=== PATIENT | male | born 1950 | race Caucasian/White ===

== ENCOUNTER 2017-12-14 05:10 | Emergency (ER) | payer MEDICARE, OTHER, SELFPAY ==
--- NOTE | 2017-12-14 05:12 | DI.RAD.S_ITS ---
PROCEDURE: XR CHEST 1V INDICATIONS: 67 year-old male with chest pain. TECHNIQUE: One view of the chest was acquired. COMPARISON: [facility], , CHEST 2 VIEW, 01/13/2015, 10:13. [facility], , CHEST 1 VIEW, 12/10/2011, 16:27. FINDINGS: Surgical changes and devices: None. Lungs and pleura: No pleural effusions or pneumothorax. Lungs are clear. Mediastinum: Mediastinal contours appear normal. Heart size is normal. Bones and chest wall: No suspicious bony lesions. Overlying soft tissues appear unremarkable. IMPRESSION: No acute cardiopulmonary disease. Dictated by: Ryder Gonzalez M.D. on 12/14/2017 at 7:48 Approved by: Ryder Gonzalez M.D. on 12/14/2017 at 7:48
--- NOTE | 2017-12-14 05:13 | ED.CHESTPAIN ---
HPI - Chest Pain General Chief Complaint: Chest Pain Stated Complaint: Chest pain Time Seen by Provider: 12/14/17 05:12 Source: patient Mode of arrival: ambulatory Limitations: no limitations History of Present Illness HPI narrative: 67-year-old male here for evaluation of chest discomfort. Patient states that 20 years ago he had a TX and had 2 stents placed in his right coronary artery. He states that since then he has never had pain like that day. He states that 7 years ago he had an episode of chest discomfort that was different from his heart attack pain but very similar to the pain that brought him in today only today symptoms are less severe than what they were 7 years ago. He states that that time 7 years ago he was admitted to the hospital overnight and was told that he did not have a heart attack. Has not had any symptoms since then. He states that yesterday morning he woke with the chest discomfort. He states that it lasted for several hours. He states that when he went on a brisk walk yesterday afternoon and did not have any symptoms. He states that this morning he woke at approximately 3 o'clock in the morning to go to the bathroom when he had the symptoms. He states that has been off and on since then. He states that he had breakfast later in the symptoms are now gone. He states that now that he has no symptoms. Related Data Home Medications Medication Instructions Recorded Confirmed Fish Oil 1,000 mg PO Q DAY #0 12/10/11 aspirin 81 mg PO QDAY #0 12/10/11 atorvastatin [Lipitor] 40 mg PO HS #0 12/10/11 docusate sodium 250 mg PO QDAY #0 12/10/11 hydrochlorothiazide 12.5 mg PO QDAY #0 12/10/11 lisinopril 20 mg PO BID #0 12/10/11 morphine [Nella] 1 tab #0 12/10/11 morphine [Nella] 2 tabs PO #0 12/10/11 omeprazole 20 mg PO QDAY #0 12/10/11 psyllium husk (aspartame) 1 pkt PO QDAY #0 12/10/11 [Metamucil Fiber Singles] zolpidem 10 mg PO HSP #0 12/10/11 Allergies Allergy/AdvReac Type Severity Reaction Status Date / Time lisinopril Allergy Severe angioedema Verified 12/14/17 05:18 Review of Systems Constitutional Denies chills, Denies fever(s), Denies lethargy and Denies weakness Cardiovascular Reports chest pain, Denies rapid heart rate, Denies edema, Denies irregular heart rhythm, Denies lightheadedness, Denies palpitations, Denies dyspnea, Denies dyspnea on exertion and Denies orthopnea Respiratory Denies cough, Denies dyspnea, Denies dyspnea on exertion and Denies wheezing Gastrointestinal Gastrointestinal: Denies abdominal pain, Denies change in bowel habits, Denies diarrhea, Denies nausea and Denies vomiting Genitourinary Denies hematuria, Denies flank pain, Denies urinary incontinence and Denies urinary urgency Integumentary/Breasts Denies pruritus, Denies erythema, Denies rash and Denies wounds Neurologic Denies weakness Endocrine Denies palpitations Hematologic/Lymphatic Denies easy bruising Allergic/Immunologic Denies wheezing [facility] 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 Smoking Status: Never smoker Exam Initial Vital Signs Initial Vital Signs: Vital Signs Blood Pressure 137/93 H 12/14/17 05:14 Const General: cooperative and well developed Nutritional Appearance: well nourished Orientation: alert, awake, oriented x3 and not confused Chest Chest: normal inspection of the chest Resp Effort & Inspection: normal respiratory effort, able to speak in complete sentences, no respiratory distress and no use of accessory muscles Auscultation: clear to auscultation bilaterally, no rales, no rhonchi and no wheezes Cardio Rate: regular rate Rhythm: regular rhythm Heart Sounds: no click, no gallops, no murmurs and no rubs Pulses: normal peripheral pulses GI Inspection: non-distended Palpation: soft, no hepatosplenomegaly, No guarding, No pulsatile mass and No tender Auscultation: normal bowel sounds Skin General: no rashes or lesions noted, No jaundice and No petechiae Neuro General: alert, oriented x3, gait normal and no focal motor deficits Speech: speech normal Extrem General: full ROM, no clubbing, cyanosis or edema, no pedal edema and no calf tenderness Course Orders Ordered: ED Orders 12/14/17 05:10 Basic Metabolic Panel Stat Complete Blood Count AUTO DIFF Stat Troponin I Stat 12/14/17 05:12 XR chest 1V Stat 06/01/18 05:13 EKG-12 Lead Stat 12/14/17 08:00 Troponin I Stat Vital Signs - 8 hr 12/14/17 05:14 12/14/17 06:01 Pulse Rate 68 Respiratory Rate 14 Blood Pressure 137/93 H Blood Pressure [Right Arm] 176/64 H Pulse Oximetry 100 MDM - Chest Pain Lab Data Attestation: I reviewed the patient's lab results. Result diagrams: 12/14/17 05:10 12/14/17 05:10 Lab Results 12/14/17 12/14/17 Range/Units 05:10 05:10 WBC 8.3 (4.5-11.0) X10^3/uL RBC 4.91 (4.5-5.9) X10^6/uL Hgb 14.7 (13.5-17.5) g/dL Hct 40.8 L (41-53) % MCV 83.1 (80-100) fL MCH 30.0 (26-34) PG MCHC 36.1 H (30-36) % RDW 12.6 (11.6-14.8) % Plt Count 172 (150-400) X10^3/uL Neut % (Auto) 64.0 (50-75) % Lymph % (Auto) 23.8 L (25-40) % [place] % (Auto) 8.3 (3-14) % Eos % (Auto) 3.1 (2-4) % Baso % (Auto) 0.8 (0-2) % Neut # (Auto) 5300 (6029-5355) /uL RBC Morphology Not Reportable Rouleaux 2+ H Sodium 140 (137-145) mmol/L Potassium 4.1 (3.4-5.1) mmol/L Chloride 100 (98-107) mmol/L Carbon Dioxide 29 (22-32) mmol/L BUN 20 (9-20) mg/dL Creatinine 0.80 (0.66-1.25) mg/dL Estimated GFR > 60.0 (>60) mL/min BUN/Creatinine Ratio 25.0 H (6-22) Glucose 220 H (80-110) mg/dL Calcium 9.4 (8.4-10.2) mg/dL Troponin I < 0.012 (0.01-0.034) ng/mL Imaging Data Chest x-ray: Attestation: I personally reviewed and interpreted this imaging study as follows: My impression: Normal size heart No focal consolidations No pneumonia ECG Data Attestation: I personally reviewed and interpreted this ECG as follows: Prior ECG tracings: available for review Interpretation: Sinus rhythm Ventricular rate is 68 As needed oval 196 QRS 143 milliseconds Normal QTC Left axis deviation No ST T wave changes EKG reviewed from 2012 Unchanged from today's EKG except that in 2012 had normal QRS MDM Narrative Medical decision making narrative: Patient with known coronary artery disease with a acute TX 20 years ago. First troponin negative. EKG unchanged from prior EKGs except current EKG has widening of the QRS. No ST segment changes. Had discussion with the patient regarding his symptoms and his risk for coronary artery disease. Informed him that my recommendation is that he come into the hospital for further evaluation secondary to his risk factors. He expressed that he did not want to be admitted to the hospital. He states that it was the same pain that happened in 2012 and he states that his current pain is actually less than what was going on and 2012 and that workup was negative. He stated that he would stay here in the emergency department for a repeat troponin and then disposition pending that result. Discharge Plan Departure Prescriptions: No Action lisinopril 20 MG tablet 20 mg PO BID Qty: 0 RF: 0 aspirin 81 MG tablet,delayed release (DR/EC) 81 mg PO QDAY Qty: 0 RF: 0 hydrochlorothiazide 12.5 MG capsule 12.5 mg PO QDAY Qty: 0 RF: 0 omeprazole 20 MG capsule,delayed release(DR/EC) 20 mg PO QDAY Qty: 0 RF: 0 Fish Oil 1,000 mg PO Q DAY Qty: 0 RF: 0 docusate sodium 250 MG capsule 250 mg PO QDAY Qty: 0 RF: 0 psyllium husk (aspartame) [Metamucil Fiber Singles] 3.4 GM powder in packet 1 pkt PO QDAY Qty: 0 RF: 0 atorvastatin [Lipitor] 40 MG tablet 40 mg PO HS Qty: 0 RF: 0 morphine [Nella] 20 MG capsule,extend.release pellets 2 tabs PO Qty: 0 RF: 0 morphine [Nella] 20 MG capsule,extend.release pellets 1 tab Qty: 0 RF: 0 zolpidem 10 MG tablet 10 mg PO HSP Qty: 0 RF: 0
[2017-12-14 05:14] VITALS: BP 137/93; BMI 27.4
[2017-12-14 05:35] LABS: Blood Urea Nitrogen 20 mg/dL (9-20); Calcium 9.4 mg/dL (8.4-10.2); Carbon Dioxide 29 mmol/L (22-32); Chloride 100 mmol/L (98-107); Estimated Glomerular Filt Rate > 60.0 mL/min (>60); Glucose 220 mg/dL (80-110); HEMOLYSIS < 15 (0-50); Potassium 4.1 mmol/L (3.4-5.1); Sodium 140 mmol/L (137-145)
[2017-12-14 05:43] LABS: Basophils Percent Auto 0.8 % (0-2); Eosinophils Percent Auto 3.1 % (2-4); Hematocrit 40.8 % (41-53); Hemoglobin 14.7 g/dL (13.5-17.5); Lymphocytes Percent Auto 23.8 % (25-40); Mean Corpuscular Volume 83.1 fL (80-100); Monocytes Percent Auto 8.3 % (3-14); Neutrophils Absolute Auto 5300 /uL (3000-5900); Platelet Count 172 X10^3/uL (150-400); Red Blood Cell Count 4.91 X10^6/uL (4.5-5.9); Red Cell Distribution Width 12.6 % (11.6-14.8); White Blood Cell Count 8.3 X10^3/uL (4.5-11.0)
[2017-12-14 05:51] LABS: Mean Corpuscular HGB Conc 36.1 % (30-36)
[2017-12-14 05:52] LABS: Add Manual Diff / Slide Review SLIDE REVIEW
[2017-12-14 05:54] LABS: Troponin I < 0.012 ng/mL (0.01-0.034)
[2017-12-14 05:57] LABS: Rouleaux 2+
[2017-12-14 06:01] VITALS: BP 176/64; PULSE 68; RESP 14; O2SAT 100
[2017-12-14 07:27] VITALS: BP 141/64; PULSE 64; RESP 16; O2SAT 97
[2017-12-14 08:29] LABS: Troponin I < 0.012 ng/mL (0.01-0.034)
[2017-12-14 08:43] LABS: Bacteria Urine None Seen; RBC Urine None Seen (0-5/HPF)
[2017-12-14 08:50] LABS: Culture Indicated Urine Cult Not Indicated; Squamous Epithelial Cell Urine 0-1 /HPF; WBC Urine 0-1/HPF (0-5/HPF)
[2017-12-14 09:29] VITALS: BP 145/75; PULSE 85; RESP 16; O2SAT 99
== END 2017-12-14 09:29 | disposition home or self-care (01) ==
PROVIDERS: Emergency Medicine; Emergency Provider Emergency Medicine; PCP Internal Medicine
DX: R07.89 Other chest pain (principal)
CPT/HCPCS: 36415; 71045; 80048; 81003; 81015; 84484; 85025; 93005; 99283; 99285

== ENCOUNTER → 2018-02-14 07:04 | Outpatient (CLI) | payer MEDICARE, OTHER, SELFPAY ==
[2018-02-18 09:20] LABS: Lipoprofile NMR SEE SEPERATE REPORT
== END ==
PROVIDERS: PCP Internal Medicine; Visit Provider Specialist
DX: E78.5 Hyperlipidemia, unspecified (principal)
CPT/HCPCS: 36415; 83704

== ENCOUNTER → 2018-02-18 12:21 | Outpatient (CLI) | payer MEDICARE, OTHER, SELFPAY ==
[2018-02-18 15:24] LABS: HEMOLYSIS < 15 (0-50); Iron 103 ug/dL (49-181)
[2018-02-18 15:34] LABS: Percent Iron Saturation 30 % (20-50); Total Iron Binding Capacity 344 ug/dL (261-462); Transferrin 268 mg/dL (206-381)
[2018-02-18 15:41] LABS: T4 Total Thyroxine 5.59 ug/dL (5.5-11.0); T7 (Free Thyroxine Index) 2.03 (1.65-3.89); Triiodothryronine T3 Uptake 36.4 % (23.5-40.5)
[2018-02-18 15:42] LABS: Free T4, Direct Thyroxine 0.98 ng/dL (0.78-2.19)
[2018-02-18 15:56] LABS: Thyroid Stimulating Hormone 1.36 uIU/mL (0.47-4.68)
[2018-02-18 16:27] LABS: Hepatitis B Surface Antigen NEGATIVE s/c (NEGATIVE)
[2018-02-18 19:17] LABS: Hep C Virus Ab w/Reflex Quant NEGATIVE s/c (NEGATIVE)
[2018-02-22 02:20] LABS: ANA Screen, IFA Negative (Negative)
== END ==
PROVIDERS: PCP Internal Medicine; Visit Provider Physician Assistant
DX: L29.8 Other pruritus (principal); I10 Essential (primary) hypertension
CPT/HCPCS: 36415; 82728; 82785; 83540; 83550; 84436; 84439; 84443; 84479; 86003; 86005; 86038; 86706; 86803; 87340

== ENCOUNTER → 2018-02-19 11:00 | Outpatient (CLI) | payer MEDICARE, OTHER, SELFPAY | PROVIDERS: PCP Internal Medicine; Visit Provider Physician Assistant | DX: L29.8 Other pruritus (principal) ==

== ENCOUNTER → 2018-02-20 08:28 | Outpatient (CLI) | payer MEDICARE, OTHER, SELFPAY | PROVIDERS: PCP Internal Medicine; Visit Provider Physician Assistant | DX: L29.8 Other pruritus (principal) | CPT/HCPCS: 87177 ==

== ENCOUNTER → 2018-02-25 10:26 | Outpatient (CLI) | payer MEDICARE, OTHER, SELFPAY ==
[2018-02-25 12:47] LABS: Hemoglobin A1C% w Est Avg Glu 6.3 % (4.0-6.0)
[2018-02-25 13:55] LABS: Blood Urea Nitrogen 18 mg/dL (9-20); Calcium 9.6 mg/dL (8.4-10.2); Carbon Dioxide 31 mmol/L (22-32); Chloride 97 mmol/L (98-107); Estimated Glomerular Filt Rate > 60.0 mL/min (>60); Glucose 164 mg/dL (80-110); HEMOLYSIS < 15 (0-50); Potassium 3.7 mmol/L (3.4-5.1); Sodium 138 mmol/L (137-145)
== END ==
PROVIDERS: PCP Internal Medicine; Visit Provider Internal Medicine
DX: I10 Essential (primary) hypertension (principal); E11.9 Type 2 diabetes mellitus without complications
CPT/HCPCS: 36415; 80048; 83036

== ENCOUNTER → 2018-05-22 09:11 | Outpatient (CLI) | payer MEDICARE, OTHER, SELFPAY ==
[2018-05-22 10:40] LABS: BUN Creatinine Ratio 18.9 (6-22); Blood Urea Nitrogen 17 mg/dL (9-20); Calcium 9.4 mg/dL (8.4-10.2); Carbon Dioxide 31 mmol/L (22-32); Chloride 100 mmol/L (98-107); Estimated Glomerular Filt Rate > 60.0 mL/min (>60); Glucose 142 mg/dL (80-110); HEMOLYSIS < 15 (0-50); Potassium 3.6 mmol/L (3.4-5.1); Sodium 143 mmol/L (137-145)
== END ==
PROVIDERS: PCP Internal Medicine; Visit Provider Internal Medicine
DX: I10 Essential (primary) hypertension (principal)
CPT/HCPCS: 36415; 80048

== ENCOUNTER → 2018-08-22 11:05 | Outpatient (CLI) | payer MEDICARE, OTHER, SELFPAY ==
[2018-08-22 11:40] LABS: Add Manual Diff / Slide Review NO; Basophils Absolute Auto 0 /uL (0-100); Basophils Percent Auto 0.8 % (0-2); Eosinophils Absolute Auto 200 /uL (0-450); Eosinophils Percent Auto 2.5 % (2-4); Hematocrit 40.1 % (41-53); Hemoglobin 14.1 g/dL (13.5-17.5); Lymphocytes Absolute Auto 1800 /uL (1100-4500); Lymphocytes Percent Auto 28.2 % (25-40); Mean Corpuscular HGB Conc 35.1 % (30-36); Mean Corpuscular Hemoglobin 29.1 PG (26-34); Mean Corpuscular Volume 82.9 fL (80-100); Monocytes Absolute Auto 600 /uL (0-900); Monocytes Percent Auto 8.7 % (3-14); Neutrophils Absolute Auto 3800 /uL (1500-7000); Neutrophils Percent Auto 59.8 % (50-75); Platelet Count 193 X10^3/uL (150-400); Red Blood Cell Count 4.84 X10^6/uL (4.5-5.9); Red Cell Distribution Width 13.4 % (11.6-14.8); White Blood Cell Count 6.3 X10^3/uL (4.5-11.0)
[2018-08-22 12:02] LABS: HEMOLYSIS < 15 (0-50); Iron 106 ug/dL (49-181)
[2018-08-22 12:05] LABS: Alanine Aminotransferase 43 IU/L (21-72); Albumin 4.3 g/dL (3.5-5.0); Albumin Globulin Ratio 1.5 (1.0-2.8); Alkaline Phosphatase 87 U/L (38-126); Aspartate Aminotransferase 26 IU/L (17-59); BUN Creatinine Ratio 22.5 (6-22); Bilirubin Total 0.5 mg/dL (0.2-1.3); Blood Urea Nitrogen 18 mg/dL (9-20); Calcium 9.7 mg/dL (8.4-10.2); Carbon Dioxide 29 mmol/L (22-32); Chloride 99 mmol/L (98-107); Estimated Glomerular Filt Rate > 60.0 mL/min (>60); Globulin 2.8 g/dL (1.7-4.1); Glucose 115 mg/dL (80-110); HEMOLYSIS < 15 (0-50); Potassium 4.3 mmol/L (3.4-5.1); Sodium 139 mmol/L (137-145); Total Protein 7.1 g/dL (6.3-8.2)
[2018-08-22 12:12] LABS: Percent Iron Saturation 31 % (20-50); Total Iron Binding Capacity 345 ug/dL (261-462); Transferrin 277 mg/dL (206-381)
[2018-08-22 12:32] LABS: Prostate Specific Antigen Scrn 1.64 ng/mL (0.1-4.0)
== END ==
PROVIDERS: PCP Internal Medicine; Visit Provider Internal Medicine
DX: E11.9 Type 2 diabetes mellitus without complications (principal); I10 Essential (primary) hypertension; E78.00 Pure hypercholesterolemia, unspecified; I25.10 Atherosclerotic heart disease of native coronary artery without angina pectoris; D50.0 Iron deficiency anemia secondary to blood loss (chronic)
CPT/HCPCS: 36415; 80053; 83540; 83550; 85025; G0103

== ENCOUNTER → 2019-01-14 07:02 | Outpatient (CLI) | payer MEDICARE, OTHER, SELFPAY ==
[2019-01-14 08:22] LABS: Add Manual Diff / Slide Review NO; Basophils Absolute Auto 0 /uL (0-100); Basophils Percent Auto 0.5 % (0-2); Eosinophils Absolute Auto 200 /uL (0-450); Hematocrit 41.5 % (41-53); Hemoglobin 14.3 g/dL (13.5-17.5); Lymphocytes Absolute Auto 2200 /uL (1100-4500); Mean Corpuscular HGB Conc 34.4 % (30-36); Mean Corpuscular Volume 84.4 fL (80-100); Monocytes Absolute Auto 700 /uL (0-900); Neutrophils Absolute Auto 4200 /uL (1500-7000); Neutrophils Percent Auto 57.5 % (50-75); Platelet Count 230 X10^3/uL (150-400); Red Blood Cell Count 4.92 X10^6/uL (4.5-5.9); Red Cell Distribution Width 13.3 % (11.6-14.8); White Blood Cell Count 7.3 X10^3/uL (4.5-11.0)
[2019-01-14 08:29] LABS: Alanine Aminotransferase 35 IU/L (21-72); Albumin 4.2 g/dL (3.5-5.0); Albumin Globulin Ratio 1.4 (1.0-2.8); Alkaline Phosphatase 91 U/L (38-126); Aspartate Aminotransferase 24 IU/L (17-59); Bilirubin Total 0.5 mg/dL (0.2-1.3); Blood Urea Nitrogen 20 mg/dL (9-20); Calcium 9.6 mg/dL (8.4-10.2); Carbon Dioxide 33 mmol/L (22-32); Chloride 100 mmol/L (98-107); Estimated Glomerular Filt Rate > 60.0 mL/min (>60); Glucose 141 mg/dL (80-110); HEMOLYSIS < 15 (0-50); Magnesium 1.9 mg/dL (1.6-2.3); Potassium 4.3 mmol/L (3.4-5.1); Sodium 141 mmol/L (137-145); Total Protein 7.2 g/dL (6.3-8.2)
[2019-01-14 08:59] LABS: HEMOLYSIS < 15 (0-50); Iron 80 ug/dL (49-181)
[2019-01-14 09:10] LABS: Percent Iron Saturation 23 % (20-50); Total Iron Binding Capacity 348 ug/dL (261-462); Transferrin 280 mg/dL (206-381)
[2019-01-17 12:25] LABS: Lipoprofile NMR SEE SEPERATE REPORT
== END ==
PROVIDERS: PCP Internal Medicine; Visit Provider Specialist
DX: E78.2 Mixed hyperlipidemia (principal); I10 Essential (primary) hypertension; G89.4 Chronic pain syndrome; D50.0 Iron deficiency anemia secondary to blood loss (chronic); E11.9 Type 2 diabetes mellitus without complications
CPT/HCPCS: 36415; 80053; 83540; 83550; 83704; 83735; 85025

== ENCOUNTER → 2019-08-18 10:45 | Outpatient (CLI) | payer MEDICARE, OTHER, SELFPAY ==
[2019-08-18 12:03] LABS: Add Manual Diff / Slide Review NO; Basophils Absolute Auto 0 /uL (0-100); Basophils Percent Auto 0.7 % (0-2); Eosinophils Absolute Auto 100 /uL (0-450); Eosinophils Percent Auto 1.7 % (2-4); Hemoglobin 13.8 g/dL (13.5-17.5); Lymphocytes Absolute Auto 1700 /uL (1100-4500); Lymphocytes Percent Auto 25.5 % (25-40); Mean Corpuscular HGB Conc 35.5 % (30-36); Mean Corpuscular Hemoglobin 29.1 PG (26-34); Mean Corpuscular Volume 81.9 fL (80-100); Monocytes Absolute Auto 600 /uL (0-900); Monocytes Percent Auto 8.7 % (3-14); Neutrophils Absolute Auto 4200 /uL (1500-7000); Neutrophils Percent Auto 63.4 % (50-75); Platelet Count 201 X10^3/uL (150-400); Red Blood Cell Count 4.76 X10^6/uL (4.5-5.9); Red Cell Distribution Width 13.2 % (11.6-14.8); White Blood Cell Count 6.6 X10^3/uL (4.5-11.0)
[2019-08-18 12:12] LABS: Alanine Aminotransferase 28 IU/L (<50); Albumin 4.3 g/dL (3.5-5.0); Albumin Globulin Ratio 1.4 (1.0-2.8); Alkaline Phosphatase 96 U/L (38-126); Aspartate Aminotransferase 28 IU/L (17-59); BUN Creatinine Ratio 26.3 (6-22); Bilirubin Total 0.4 mg/dL (0.2-1.3); Blood Urea Nitrogen 21 mg/dL (9-20); Calcium 9.8 mg/dL (8.4-10.2); Carbon Dioxide 31 mmol/L (22-32); Chloride 97 mmol/L (98-107); Estimated Glomerular Filt Rate > 60.0 mL/min (>60); Globulin 3.1 g/dL (1.7-4.1); Glucose 121 mg/dL (80-110); HEMOLYSIS < 15 (0-50); Potassium 3.4 mmol/L (3.4-5.1); Sodium 137 mmol/L (137-145); Total Protein 7.4 g/dL (6.3-8.2)
[2019-08-18 12:37] LABS: HEMOLYSIS < 15 (0-50); Iron 76 ug/dL (49-181)
[2019-08-18 12:43] LABS: Prostate Specific Antigen Scrn 1.73 ng/mL (0.1-4.0)
[2019-08-18 12:47] LABS: Percent Iron Saturation 22 % (20-50); Total Iron Binding Capacity 344 ug/dL (261-462); Transferrin 282 mg/dL (206-381)
== END ==
PROVIDERS: PCP Internal Medicine; Referring Provider Internal Medicine; Visit Provider Internal Medicine
DX: Z00.00 Encounter for general adult medical examination without abnormal findings (principal); E11.9 Type 2 diabetes mellitus without complications; E78.00 Pure hypercholesterolemia, unspecified; D50.0 Iron deficiency anemia secondary to blood loss (chronic); I10 Essential (primary) hypertension; Z12.5 Encounter for screening for malignant neoplasm of prostate
CPT/HCPCS: 36415; 80053; 83540; 83550; 85025; G0103

== ENCOUNTER → 2019-08-26 13:33 | Outpatient (ROUT) | payer MEDICARE, OTHER, SELFPAY ==
[2019-08-26 14:28] LABS: Hemoglobin A1C% w Est Avg Glu 6.4 % (4.0-6.0)
== END ==
PROVIDERS: PCP Internal Medicine; Visit Provider Internal Medicine
DX: E11.9 Type 2 diabetes mellitus without complications (principal); D50.0 Iron deficiency anemia secondary to blood loss (chronic)
CPT/HCPCS: 83036

== ENCOUNTER → 2019-08-29 13:59 | Outpatient (CLI) | payer MEDICARE, OTHER, SELFPAY | PROVIDERS: PCP Internal Medicine; Referring Provider Internal Medicine; Visit Provider Internal Medicine | DX: M85.852 Other specified disorders of bone density and structure, left thigh (principal); E11.9 Type 2 diabetes mellitus without complications; Z82.62 Family history of osteoporosis | CPT/HCPCS: 77080 ==

== ENCOUNTER → 2019-12-04 10:14 | Outpatient (CLI) | payer MEDICARE, OTHER, SELFPAY ==
[2019-12-04 12:23] LABS: Hemoglobin A1C% w Est Avg Glu 6.4 % (4.0-6.0)
== END ==
PROVIDERS: PCP Internal Medicine; Referring Provider Internal Medicine Gastroenterology; Visit Provider Internal Medicine Gastroenterology
DX: K90.0 Celiac disease (principal); E11.9 Type 2 diabetes mellitus without complications
CPT/HCPCS: 36415; 83036; 83516; 86255

== ENCOUNTER → 2020-02-17 06:58 | Outpatient (CLI) | payer MEDICARE, OTHER, SELFPAY ==
[2020-02-17 08:04] LABS: Add Manual Diff / Slide Review NO; Basophils Absolute Auto 0 /uL (0-100); Basophils Percent Auto 0.7 % (0-2); Eosinophils Absolute Auto 200 /uL (0-450); Eosinophils Percent Auto 3.2 % (2-4); Hematocrit 41.1 % (41-53); Hemoglobin 14.4 g/dL (13.5-17.5); Lymphocytes Absolute Auto 1500 /uL (1100-4500); Mean Corpuscular HGB Conc 34.9 % (30-36); Mean Corpuscular Hemoglobin 28.9 PG (26-34); Mean Corpuscular Volume 82.9 fL (80-100); Monocytes Absolute Auto 600 /uL (0-900); Monocytes Percent Auto 8.7 % (3-14); Neutrophils Absolute Auto 4200 /uL (1500-7000); Neutrophils Percent Auto 64.4 % (50-75); Platelet Count 178 X10^3/uL (150-400); Red Blood Cell Count 4.97 X10^6/uL (4.5-5.9); Red Cell Distribution Width 13.2 % (11.6-14.8); White Blood Cell Count 6.6 X10^3/uL (4.5-11.0)
[2020-02-17 08:27] LABS: Magnesium 1.9 mg/dL (1.6-2.3)
[2020-02-17 08:30] LABS: Hemoglobin A1C% w Est Avg Glu 6.5 % (4.0-6.0)
[2020-02-17 08:31] LABS: Alanine Aminotransferase 34 IU/L (<50); Albumin 4.4 g/dL (3.5-5.0); Albumin Globulin Ratio 1.5 (1.0-2.8); Alkaline Phosphatase 110 U/L (38-126); Aspartate Aminotransferase 33 IU/L (17-59); Bilirubin Total 0.7 mg/dL (0.2-1.3); Blood Urea Nitrogen 18 mg/dL (9-20); Calcium 9.7 mg/dL (8.4-10.2); Carbon Dioxide 32 mmol/L (22-32); Chloride 98 mmol/L (98-107); Estimated Glomerular Filt Rate > 60.0 mL/min (>60); Globulin 2.9 g/dL (1.7-4.1); Glucose 154 mg/dL (80-110); HEMOLYSIS < 15 (0-50); Potassium 3.6 mmol/L (3.4-5.1); Sodium 136 mmol/L (137-145); Total Protein 7.3 g/dL (6.3-8.2)
[2020-02-17 09:12] LABS: HEMOLYSIS < 15 (0-50); Iron 95 ug/dL (49-181)
[2020-02-17 09:24] LABS: Percent Iron Saturation 25 % (20-50); Total Iron Binding Capacity 375 ug/dL (261-462); Transferrin 290 mg/dL (206-381)
[2020-02-17 09:48] LABS: TSH w/ Reflex to FT4 1.29 uIU/mL (0.47-4.68)
[2020-02-19 08:41] LABS: Cholesterol, Total 133 mg/dL (100-199); HDL-Cholesterol 45 mg/dL (>39); HDL-Particle (Total) 34.2 umol/L (>=30.5); Historical Reading Comment: (.); LDL Particle 737 nmol/L (<1000); LDL Size 20.9 nm (>20.5); LDL-Cholsterol 66 mg/dL (0-99); LP-IR Score 53 (<=45); Small LDL- Particle 322 nmol/L (<=527); Triglycerides 110 mg/dL (0-149)
== END ==
PROVIDERS: PCP Internal Medicine; Referring Provider Specialist; Visit Provider Internal Medicine
DX: I10 Essential (primary) hypertension (principal); E11.9 Type 2 diabetes mellitus without complications; D50.0 Iron deficiency anemia secondary to blood loss (chronic); E78.2 Mixed hyperlipidemia
CPT/HCPCS: 36415; 80053; 80061; 83036; 83540; 83550; 83704; 83735; 84443; 85025

== ENCOUNTER → 2020-02-22 08:15 | Outpatient (CLI) | payer MEDICARE, OTHER, SELFPAY ==
[2020-02-23 22:11] LABS: COVID19 Sendout Not Detected (Not Detect)
== END ==
PROVIDERS: PCP Internal Medicine; Visit Provider Physician Assistant
DX: Z11.59 Encounter for screening for other viral diseases (principal)
CPT/HCPCS: 87635

== ENCOUNTER 2020-02-25 09:18 | Day surgery (SDC) | payer MEDICARE, OTHER, SELFPAY ==
--- NOTE | 2020-02-25 | PATH_ITS ---
[facility] Accession Number: [id number] . 01 Material submitted: . PART A: colon - TRANSVERSE COLON BIOPSY PART B: rectum - RECTAL POLYPS . 01 Clinical history: . SCREENING COLONOSCOPY . 02 Diagnosis: A. Transverse Colon, Biopsies: Tubular adenoma in 2 of 3 fragments. . B. Rectum, Polyps, Biopsy: Tubular adenoma in 1 of 5 fragments. Inflammatory polyp in 2 fragments. Hyperplastic polyp in 2 fragments. MRV 02/27/2020 1038 Local . 02 Electronically signed: . Carmelita Becerra MD, Pathologist NPI- [id number] . 01 Gross description: . Part A: TRANSVERSE COLON BIOPSY: Received in formalin are 3 fragment(s) of bills, soft tissue measuring 0.3 x 0.3 x 0.3 cm to 0.2 x 0.2 x 0.1 cm submitted entirely in 1 cassette(s) Part B: RECTAL POLYPS: Received in formalin are 4 fragment(s) of bills, soft tissue measuring 0.5 x 0.3 x 0.3 cm to 0.3 x 0.3 x 0.3 cm submitted entirely in 1 cassette(s) /QBJ 02/26/2020 0303 Local . 02 Pathologist provided ICD-10: D12.3, D12.8 . 02 CPT . 535143, 222419 Performed at: 01 [facility] [address] [id number] MD Wood Fritz MD Phone: [phone] Performed at: 02 [facility] [address] [place], [place] [id number] MD Carmelita Becerra MD Phone: [phone]
[2020-02-25 09:47] VITALS: BP 170/77; PULSE 89; RESP 16; TEMP 36.4; O2SAT 98; BMI 26.6
[2020-02-25] MEDS: SODIUM CHLORIDE 0.9% 1,000 ML 70 ML IV (09:47)
--- NOTE | 2020-02-25 10:21 | PM.HP.1 ---
History of Present Illness History of Present Illness Date Patient Seen: 02/25/20 Time Patient Seen: 10:22 Chief complaint: SCREENING COLONOSCOPY Narrative: Patient is a 69 year old male who presented for screening colonoscopy. He does have medication induced constipation. Last seen 12/04/2019 - denies changes to his medical history since that time. Patient History Family & 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: household members spouse Tobacco & Substance use: Smoking Status Never smoker alcohol intake frequency holiday/special occasion Substance Use Type does not use Meds Home Medications and Allergies Home Medications Medication Instructions Recorded Confirmed Type morphine [Nella] 20 mg PO QAM #0 12/10/11 02/25/20 History aspirin 81 mg PO DAILY 12/14/17 02/25/20 History cholecalciferol (vitamin D3) 4,000 unit PO 5XW 12/14/17 02/25/20 History [Vitamin D3] docusate sodium 250 mg PO DAILY 12/14/17 02/25/20 History felodipine 5 mg PO DAILY 12/14/17 02/25/20 History finasteride 5 mg PO DAILY 12/14/17 02/25/20 History fluticasone furoate 1 spray INTRANASAL DAILY 12/14/17 02/25/20 History albuterol sulfate 90 mcg/actuation 2 puff INHALATION Q6H PRN 11/06/18 02/25/20 History aerosol inhaler atorvastatin 40 mg tablet 60 mg PO DAILY 11/06/18 02/25/20 History ferrous gluconate 324 mg (37.5 mg 324 mg PO DAILY tab 11/06/18 02/25/20 History iron) tablet hydrochlorothiazide 25 mg tablet 25 mg PO DAILY 11/06/18 02/25/20 History metformin 500 mg tablet 500 mg PO BID 11/06/18 02/25/20 History metoprolol succinate 50 mg 50 mg PO DAILY 11/06/18 02/25/20 History tablet,extended release 24 hr morphine 40 mg capsule,extended 10 mg PO QNOON 01/27/19 02/25/20 History release pellets duloxetine 60 mg PO DAILY 02/25/20 02/25/20 History esomeprazole magnesium 20 mg PO DAILY 02/25/20 02/25/20 History polyethylene glycol 3350 [Miralax] 17 g PO DAILY 02/25/20 02/25/20 History Allergies Allergy/AdvReac Type Severity Reaction Status Date / Time lisinopril Allergy Severe angioedema Verified 01/27/19 15:35 iron dextran complex Allergy Mild dextran Verified 01/27/19 15:35 reaction Review of Systems Review of Systems ROS: Yes All systems reviewed with the patient and are negative except as otherwise documented Exam Vital Signs (past 8 hours): - 02/25/20 09:47 Temperature 97.6 F Pulse Rate 89 Respiratory Rate 16 Blood Pressure 170/77 H Pulse Oximetry 98 Oxygen Delivery Method Room Air Const General: cooperative, healthy appearing, comfortable and well developed Nutritional Appearance: average body habitus Orientation: alert and awake Resp Effort & Inspection: normal respiratory effort and able to speak in complete sentences Auscultation: clear to auscultation bilaterally Cardio Rate: regular rate Rhythm: regular rhythm Heart Sounds: S1 normal and S2 normal GI Palpation: soft Percussion: normal to percussion Auscultation: normal bowel sounds Extrem Right lower extremity: no edema Left lower extremity: no edema Assessment & Plan Assessment & Plan narrative: 1. Screening colonoscopy - Colonoscopy today, further recommendations to follow
[2020-02-25] MEDS: fentaNYL 250 MCG/5 ML INJ IV ×2 (10:26→10:32)
[2020-02-25] MEDS: MIDAZOLAM 5 MG/5 ML VIAL IV ×3 (10:26→10:31)
--- NOTE | 2020-02-25 10:52 | PM.OP.ENDO ---
Operative Date/Time/Diagnoses Date of procedure: 02/25/20 Procedure Notes Procedure in detail: Surgeon: Flores Glover DO Procedure: Colonoscopy with polypectomy Preoperative diagnosis: 1. Screening colonoscopy Postoperative diagnosis: 1. Two 2-3mm polyps in the transverse colon 2. Four 2-3 mm polyps in the rectum 3. Redundant colon 4. Grade 1 internal hemorrhoids Medications: Conscious sedation using 5 mg IV of Midazolam and 150 mcg IV of Fentanyl Preanesthesia Assessment An H and P was performed/updated and the Px?s ASA class is 2. The procedure was discussed in detail with the patient. The potential risks and complications including infection, bleeding, missed lesions, perforation, need for surgery in case of perforation, prolonged hospital stay, and were explained. A brief question and answer period was allotted and once all questions were answered, informed consent was obtained. The patient was brought back to the procedure room and placed on standard monitoring. The patient?s vital signs were monitored continuously throughout the entire procedure. Prior to starting, a timeout was performed to confirm the patient?s identity, allergies, medications, and procedure. Procedure in detail The patient was placed in left lateral decubitus position and once adequate sedation was obtained a MARY was performed. The digital rectal examination did not reveal any palpable lesions. The tip of the colonoscope was placed in the anal canal and advanced with some mild technical difficulty due to redundant colon all the way to the cecum which was identified by the appendiceal orifice and the ileocecal valve. Careful examination of all gallagher of the colon was performed with irrigation of any residual stool. Two polyps 2-3mm in the transverse colon were removed with jumbo forceps. Four 2-3mm polyps were removed from the rectum with jumbo forceps. Mild internal hemorrhoids noted on retroflexion. The patient tolerated the procedure well and will be brought back to the recovery area to be discharged once criteria are met. The prep was judged to be good/excellent and adequate to identify polyps less than 5 mm. The withdrawal time was 9 min. The total physician intraservice time was 27min. Complications There were no complications and estimated blood loss was minimal. Recommendations: Resume previous diet Continue outPx medications Follow up pathology results Repeat colonoscopy will be determined after pathology is reviewed Office follow up as needed for persistent symptoms An emergency contact number was given to the patient for any complications related to the procedure
[2020-02-25 10:57] VITALS: BP 129/71; PULSE 83; RESP 16; TEMP 36.4; O2SAT 97
[2020-02-25 10:59] VITALS: BP 129/71; PULSE 80; RESP 16; O2SAT 96
[2020-02-25 11:03] VITALS: BP 131/72; PULSE 80; RESP 16; O2SAT 95
[2020-02-25 11:12] VITALS: BP 132/77; PULSE 80; RESP 16; TEMP 36.4; O2SAT 95
[2020-02-25 11:21] VITALS: BP 144/69; PULSE 75; RESP 16; TEMP 36.2; O2SAT 97
--- NOTE | 2020-02-25 15:58 | SUR.PHASEII ---
1152-Pt dcd in stable condition via wc, alll dc instructions given and pt verbalizes understanding. iv dcd and site clear.
== END 2020-02-25 11:52 | disposition home or self-care (01) ==
PROVIDERS: PCP Internal Medicine; Referring Provider Student in an Organized Health Care Education/Training Program; Visit Provider Student in an Organized Health Care Education/Training Program
PROC: 0DJD8ZZ Inspection of Lower Intestinal Tract, Via Natural or Artificial Opening Endoscopic (ICD-10-PCS; CPT 45378; principal; 2020-02-25 10:30)
DX: Z12.11 Encounter for screening for malignant neoplasm of colon (principal); E11.9 Type 2 diabetes mellitus without complications; I10 Essential (primary) hypertension; E78.5 Hyperlipidemia, unspecified; K21.9 Gastro-esophageal reflux disease without esophagitis; Z79.84 Long term (current) use of oral hypoglycemic drugs; D50.9 Iron deficiency anemia, unspecified; I25.2 Old myocardial infarction; D12.3 Benign neoplasm of transverse colon; D12.8 Benign neoplasm of rectum; K64.0 First degree hemorrhoids
CPT/HCPCS: 45380; J2250; J3010

== ENCOUNTER → 2020-08-12 12:26 | Outpatient (CLI) | payer MEDICARE, OTHER, SELFPAY ==
[2020-08-12] MEDS: COVID-19 VACC #1, MRNA(MOD) 100 MCG/0.5 ML VIAL IM (12:32)
== END ==
PROVIDERS: PCP Internal Medicine; Visit Provider Internal Medicine
DX: Z23 Encounter for immunization (principal)
CPT/HCPCS: 0011A; 91301

== ENCOUNTER → 2020-08-16 06:49 | Outpatient (CLI) | payer MEDICARE, OTHER, SELFPAY ==
[2020-08-16 08:55] LABS: Add Manual Diff / Slide Review NO; Basophils Absolute Auto 0 /uL (0-100); Basophils Percent Auto 0.3 % (0-2); Eosinophils Absolute Auto 200 /uL (0-450); Eosinophils Percent Auto 1.8 % (2-4); Hematocrit 39.2 % (41-53); Hemoglobin 13.6 g/dL (13.5-17.5); Lymphocytes Absolute Auto 1500 /uL (1100-4500); Lymphocytes Percent Auto 17.8 % (25-40); Mean Corpuscular HGB Conc 34.7 % (30-36); Mean Corpuscular Hemoglobin 28.9 PG (26-34); Mean Corpuscular Volume 83.3 fL (80-100); Monocytes Absolute Auto 800 /uL (0-900); Monocytes Percent Auto 9.5 % (3-14); Neutrophils Absolute Auto 6100 /uL (1500-7000); Neutrophils Percent Auto 70.6 % (50-75); Platelet Count 209 X10^3/uL (150-400); Red Blood Cell Count 4.71 X10^6/uL (4.5-5.9); Red Cell Distribution Width 13.2 % (11.6-14.8); White Blood Cell Count 8.6 X10^3/uL (4.5-11.0)
[2020-08-16 08:59] LABS: Creatinine Urine Random 38.3 mg/dL
[2020-08-16 09:06] LABS: Hemoglobin A1C% w Est Avg Glu 6.6 % (4.0-6.0)
[2020-08-16 09:08] LABS: Alanine Aminotransferase 30 IU/L (<50); Albumin 4.1 g/dL (3.5-5.0); Albumin Globulin Ratio 1.4 (1.0-2.8); Alkaline Phosphatase 102 U/L (38-126); Aspartate Aminotransferase 26 IU/L (17-59); BUN Creatinine Ratio 25.6 (6-22); Bilirubin Total 0.5 mg/dL (0.2-1.3); Blood Urea Nitrogen 20 mg/dL (9-20); Calcium 9.5 mg/dL (8.4-10.2); Carbon Dioxide 33 mmol/L (22-32); Chloride 96 mmol/L (98-107); Estimated Glomerular Filt Rate > 60.0 mL/min (>60); Glucose 179 mg/dL (80-110); HEMOLYSIS < 15 (0-50); Magnesium 1.7 mg/dL (1.6-2.3); Potassium 3.2 mmol/L (3.4-5.1); Sodium 135 mmol/L (137-145); Total Protein 7.1 g/dL (6.3-8.2); Uric Acid 5.3 mg/dL (3.5-8.5)
[2020-08-16 09:30] LABS: HEMOLYSIS < 15 (0-50); Iron 34 ug/dL (49-181)
[2020-08-16 09:42] LABS: Percent Iron Saturation 9 % (20-50); Total Iron Binding Capacity 359 ug/dL (261-462); Transferrin 258 mg/dL (206-381)
[2020-08-17 14:27] LABS: Microalbumin Urine Random < 0.6 mg/dL (0-1.6)
== END ==
PROVIDERS: PCP Internal Medicine; Referring Provider Internal Medicine; Visit Provider Internal Medicine
DX: I10 Essential (primary) hypertension (principal); E11.9 Type 2 diabetes mellitus without complications; J45.909 Unspecified asthma, uncomplicated; M10.9 Gout, unspecified
CPT/HCPCS: 36415; 80053; 82043; 82570; 83036; 83540; 83550; 83735; 84156; 84550; 85025

== ENCOUNTER → 2020-09-09 10:16 | Outpatient (CLI) | payer MEDICARE, OTHER, SELFPAY ==
[2020-09-09] MEDS: COVID-19 VACC #2, MRNA(MOD) 100 MCG/0.5 ML VIAL IM (10:19)
== END ==
PROVIDERS: PCP Internal Medicine; Visit Provider Internal Medicine
DX: Z23 Encounter for immunization (principal)
CPT/HCPCS: 0012A; 91301

== ENCOUNTER → 2020-09-14 06:47 | Outpatient (CLI) | payer MEDICARE, OTHER, SELFPAY ==
[2020-09-14 08:21] LABS: BUN Creatinine Ratio 23.3 (6-22); Blood Urea Nitrogen 17 mg/dL (9-20); Calcium 9.4 mg/dL (8.4-10.2); Carbon Dioxide 32 mmol/L (22-32); Chloride 97 mmol/L (98-107); Estimated Glomerular Filt Rate > 60.0 mL/min (>60); Glucose 234 mg/dL (80-110); HEMOLYSIS < 15 (0-50); Potassium 3.6 mmol/L (3.4-5.1); Sodium 133 mmol/L (137-145)
[2020-09-14 08:52] LABS: Prostate Specific Antigen Scrn 1.37 ng/mL (0.1-4.0)
== END ==
PROVIDERS: PCP Internal Medicine; Referring Provider Internal Medicine; Visit Provider Internal Medicine
DX: I10 Essential (primary) hypertension (principal); Z12.5 Encounter for screening for malignant neoplasm of prostate
CPT/HCPCS: 36415; 80048; G0103

== ENCOUNTER → 2020-10-25 07:45 | Outpatient (CLI) | payer MEDICARE, OTHER, SELFPAY ==
--- NOTE | 2020-10-25 | DI.ECHO.S_ITS ---
[facility] +[facility]+ : : [address] : : : : [id number] : : : : Phone: [phone] Echocardiogram Report + + :Name: KYAW CRUM Study Date: 10/25/2020 Height: 66 in : :[facility] ReadingLocation: Weight: 167 lb : : Gender: Male BSA: 1.9 m2 : :: 1950 Age: 70 yrs BP: 131/74 mmHg: :Reason For Study: Chest pain : :Ordering Physician: Pam : :Radha Perales Performed By: Andrew Wiley : :Referring: PAM PERALES : + + Interpretation Summary Left ventricular systolic function is mildly reduced with an estimated ejection fraction of 45 to 50% with a mild dyssynchronous contraction pattern with borderline global hypokinesis that is more significant in the inferior wall, particularly proximally where it appears to be akinetic. There is a probable diastolic relaxation abnormality but probable normal filling pressures. The right ventricle appears normal. Right ventricular systolic pressure cannot be estimated but CVP is likely 3 mmHg. Both atria are normal in size. There is mild mitral regurgitation and mild aortic valve sclerosis with mild regurgitation but without stenosis. The ascending aorta is mildly enlarged. Procedure: A two-dimensional transthoracic echocardiogram with color flow and Doppler was performed. The study quality was technically adequate. There is no prior echocardiogram noted for this patient. The patient was in sinus rhythm with heart rates between 60-75 bpm during the exam. Left Ventricle: The left ventricle is normal in size and wall thickness. Left ventricular systolic function is mildly reduced. The ejection fraction is estimated to be 45-50%. There is a mild dyssynchronous contraction pattern with borderline global hypokinesis with more significant hypokinesis in the inferior wall, particularly in the proximal segment that appears to be akinetic. There are no other focal wall motion abnormalities. Diastolic parameters suggest a relaxation abnormality of the left ventricle, consistent with probable normal filling pressures. Right Ventricle: The right ventricle is normal in size and function. Atria: Both atria are normal in size. There is no Doppler evidence for an interatrial shunt. Mitral Valve: The mitral valve leaflets appear normal. There is no evidence of stenosis, fluttering, or prolapse. There is mild mitral regurgitation. Aortic Valve: The aortic valve is not well visualized. There is mild aortic valve sclerosis. The aortic valve is mildly calcified. There is mildly reduced leaflet mobility. There is no hemodynamically significant valvular aortic stenosis. There is mild aortic regurgitation. Tricuspid Valve: The tricuspid valve is normal in structure and function. There is a trace or physiologic amount of tricuspid regurgitation. Pulmonary artery pressures cannot be estimated because of the lack of a measurable TR jet velocity but the IVC suggests a CVP of around 3 mmHg. Pulmonic Valve: The pulmonic valve is not well visualized. There is no other significant valvular heart disease. Great Vessels: The aortic root is normal size. The ascending aorta is mildly enlarged. The IVC is of normal diameter and collapses greater than 50% with a sniff. This suggests a low right atrial pressure of 3 mm Hg. Pericardium/ Pleura There is no pericardial effusion. There is no pleural effusion. MMode/2D Measurements & Calculations LVIDd: 5.8 cm LVOT diam: 2.1 cm LVIDs: 4.5 cm Ao root diam: 3.5 cm FS: 22.8 % asc Aorta Diam: 3.7 cm IVSd: 1.0 cm LVPWd: 0.98 cm LV lopez. diameter/BSA (cm/m^2): 3.1 LV sys. diameter/BSA (cm/m^2): 2.4 LA A2 area: 18.6 cm2 RA long axis: 4.1 cm LA A4 area: 17.6 cm2 RA area: 9.9 cm2 LA length (vol): 4.6 cm RA vol: 20.4 ml LA vol: 60.1 ml RA : 11.0 ml/m2 LA vol index: 32.5 ml/m2 RVD1 (basal): 3.0 cm TAPSE: 2.6 cm Doppler Measurements & Calculations Ao V2 max: 191.1 cm/sec LVOT Max Landon: 101.1 cm/sec Ao V2 mean: 128.8 cm/sec LV V1 max P.1 mmHg Ao max P.6 mmHg LV V1 VTI: 23.4 cm Ao mean P.5 mmHg MONIKA(I,D): 2.1 cm2 Ao V2 VTI: 40.4 cm MONIKA(V,D): 1.9 cm2 sev ratio: 0.58 MONIKA indexed to BSA (cm^2/m^2): 1.1 MV E max landon: 66.9 cm/sec TR max landon: 233.5 cm/sec MV A max landon: 103.3 cm/sec TR max P.8 mmHg MV E/A: 0.65 Med Peak E' Landon: 4.9 cm/sec E/E' med: 13.5 Lat Peak E' Landon: 9.5 cm/sec E/E' lat: 7.1 E/e' average: 10.3 MV dec time: 0.32 sec SV(LVOT): 84.6 ml Reading Physician:12:37 PM
== END ==
PROVIDERS: PCP Internal Medicine; Referring Provider Specialist; Visit Provider Specialist
DX: I08.0 Rheumatic disorders of both mitral and aortic valves (principal); I77.89 Other specified disorders of arteries and arterioles; R07.89 Other chest pain
CPT/HCPCS: 93306

== ENCOUNTER → 2020-12-06 08:39 | Outpatient (CLI) | payer MEDICARE, OTHER, SELFPAY ==
[2020-12-06 09:52] LABS: BUN Creatinine Ratio 23.4 (6-22); Blood Urea Nitrogen 18 mg/dL (9-20); Calcium 9.9 mg/dL (8.4-10.2); Carbon Dioxide 29 mmol/L (22-32); Chloride 98 mmol/L (98-107); Estimated Glomerular Filt Rate > 60.0 mL/min (>60); Glucose 138 mg/dL (80-110); HEMOLYSIS < 15 (0-50); Potassium 3.5 mmol/L (3.4-5.1); Sodium 134 mmol/L (137-145)
== END ==
PROVIDERS: PCP Internal Medicine; Referring Provider Physician Assistant Medical; Visit Provider Physician Assistant Medical
DX: E78.00 Pure hypercholesterolemia, unspecified (principal); I10 Essential (primary) hypertension
CPT/HCPCS: 36415; 80048

== ENCOUNTER → 2020-12-28 07:49 | Outpatient (CLI) | payer MEDICARE, OTHER, SELFPAY ==
[2020-12-28 09:13] LABS: BUN Creatinine Ratio 23.8 (6-22); Blood Urea Nitrogen 20 mg/dL (9-20); Calcium 9.6 mg/dL (8.4-10.2); Carbon Dioxide 29 mmol/L (22-32); Chloride 97 mmol/L (98-107); Estimated Glomerular Filt Rate > 60.0 mL/min (>60); Glucose 149 mg/dL (80-110); HEMOLYSIS < 15 (0-50); Potassium 3.8 mmol/L (3.4-5.1); Sodium 134 mmol/L (137-145)
== END ==
PROVIDERS: PCP Internal Medicine; Referring Provider Specialist; Visit Provider Specialist
DX: I10 Essential (primary) hypertension (principal)
CPT/HCPCS: 36415; 80048

== ENCOUNTER → 2021-01-24 08:08 | Outpatient (CLI) | payer MEDICARE, OTHER, SELFPAY ==
[2021-01-24 10:24] LABS: COVID19 -Nasal RAPID Negative (Negative)
== END ==
PROVIDERS: PCP Internal Medicine; Visit Provider Physician Assistant
DX: Z01.812 Encounter for preprocedural laboratory examination (principal); Z20.822 Contact with and (suspected) exposure to COVID-19
CPT/HCPCS: 87635; C9803

== ENCOUNTER 2021-01-26 07:21 | Day surgery (SDC) | payer MEDICARE, OTHER, SELFPAY ==
[2021-01-26 07:45] VITALS: BP 172/88; PULSE 75; RESP 16; TEMP 36.1; O2SAT 99; BMI 27.1
--- NOTE | 2021-01-26 08:53 | PM.HP.1 ---
History of Present Illness History of Present Illness Chief complaint: EGD Narrative: Abdominal pain and GE reflux Patient History Medical History (Updated 01/26/21 @ 08:05 by Maia Romero RN) Anemia Asthma Diabetes GERD (gastroesophageal reflux disease) HTN (hypertension) Hyperlipidemia Surgical History (Updated 01/26/21 @ 08:04 by Maia Romero RN) H/O heart artery stent Family & 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: household members spouse Tobacco & Substance use: Smoking Status Never smoker alcohol intake current alcohol intake frequency holiday/special occasion Substance Use Type does not use Meds Home Medications and Allergies Home Medications Medication Instructions Recorded Confirmed Type aspirin 81 mg tablet,delayed 81 mg PO DAILY 12/14/17 01/26/21 History release cholecalciferol (vitamin D3) 100 4,000 unit PO 5XW 12/14/17 01/26/21 History mcg (4,000 unit) capsule (Vitamin D3) felodipine 5 mg tablet,extended 5 mg PO DAILY 12/14/17 01/26/21 History release 24 hr finasteride 5 mg tablet 5 mg PO DAILY 12/14/17 01/26/21 History fluticasone furoate 27.5 1 spray INTRANASAL DAILY 12/14/17 01/26/21 History mcg/actuation nasal spray,suspension albuterol sulfate 90 mcg/actuation 2 puff INHALATION Q6H PRN 11/06/18 01/26/21 History aerosol inhaler atorvastatin 40 mg tablet 60 mg PO DAILY 11/06/18 01/26/21 History ferrous gluconate 324 mg (37.5 mg 324 mg PO TID tab 11/06/18 01/26/21 History iron) tablet hydrochlorothiazide 25 mg tablet 25 mg PO DAILY 11/06/18 01/26/21 History metformin 500 mg tablet 500 mg PO TID 11/06/18 02/25/20 History metoprolol succinate 50 mg 25 mg PO DAILY 11/06/18 01/26/21 History tablet,extended release 24 hr esomeprazole magnesium 20 mg 20 mg PO DAILY 02/25/20 01/26/21 History tablet,delayed release Advair Diskus INHALATION BID 01/26/21 History potassium chloride 20 mEq 20 meq PO BID 01/26/21 01/26/21 History tablet,extended release temazepam 15 mg capsule 15 mg PO PRN PRN 07/14/21 07/14/21 History Allergies Allergy/AdvReac Type Severity Reaction Status Date / Time lisinopril Allergy Severe angioedema Verified 01/26/21 07:44 iron dextran complex Allergy Mild dextran Verified 01/26/21 07:44 reaction Exam Vital Signs (past 8 hours): - 01/26/21 07:45 Temperature 97.0 F L Pulse Rate 75 Respiratory Rate 16 Blood Pressure 172/88 H Pulse Oximetry 99 Oxygen Delivery Method Room Air Narrative Exam Narrative: Oropharynx free of lesion Chest clear to auscultation percussion Cardiac exam reveals no S3 or murmur Assessment & Plan Assessment & Plan narrative: GE reflux and abdominal pain rule out peptic esophagitis or peptic ulcer disease. Risks, benefits, alternatives have been explained.
[2021-01-26] MEDS: fentaNYL 250 MCG/5 ML INJ IV (08:57)
[2021-01-26] MEDS: MIDAZOLAM 5 MG/5 ML VIAL IV (09:11)
--- NOTE | 2021-01-26 09:12 | PM.OP.ENDO ---
Procedure & Clinicians Study performed: EGD Indications: Abdominal pain and GE reflux Surgeon: Merlin Jung Procedure Notes Procedure in detail: After informed consent was obtained the patient was placed in left lateral decubitus position. The video upper scope was placed into the oropharynx and with the patient's help swallowed into the esophagus. The esophagus stomach and duodenum were carefully examined. On withdrawal retroflexed view the GE junction was performed. The scope was removed. The patient tolerated procedure well. Blood loss none Complications none Sedation Total sedation time 16 minutes Versed 7 mg fentanyl 100 micro g IV titration Findings 1. Normal oropharynx 2. Normal esophagus with no evidence of esophagitis or Lawler's esophagus 3. Normal stomach proximally and distally 4. Normal duodenal bulb and sweep We will merely follow how Mr. taylor is doing over the next month. The now that he is off his morphine he may be able to taper more medications.
[2021-01-26 09:18] VITALS: BP 145/74; PULSE 66; RESP 16; TEMP 36.6; O2SAT 95
[2021-01-26 09:23] VITALS: BP 145/74; PULSE 64; RESP 16; O2SAT 96
[2021-01-26 09:28] VITALS: BP 144/74; PULSE 73; RESP 14
[2021-01-26 09:49] VITALS: BP 142/70; PULSE 80; RESP 16; TEMP 36.7; O2SAT 98
== END 2021-01-26 09:51 | disposition home or self-care (01) ==
LOC: ENDO 07:23
PROVIDERS: PCP Internal Medicine; Referring Provider Internal Medicine Gastroenterology; Visit Provider Internal Medicine Gastroenterology
PROC: 0DJ08ZZ Inspection of Upper Intestinal Tract, Via Natural or Artificial Opening Endoscopic (ICD-10-PCS; CPT 43235; principal; 2021-01-26 08:30)
DX: R10.9 Unspecified abdominal pain (principal); K21.00 Gastro-esophageal reflux disease with esophagitis, without bleeding; E11.9 Type 2 diabetes mellitus without complications; Z79.84 Long term (current) use of oral hypoglycemic drugs; G89.29 Other chronic pain; M54.9 Dorsalgia, unspecified; E78.5 Hyperlipidemia, unspecified; I10 Essential (primary) hypertension; I25.2 Old myocardial infarction; F11.20 Opioid dependence, uncomplicated; D50.9 Iron deficiency anemia, unspecified
CPT/HCPCS: 43235; J2250; J3010

== ENCOUNTER → 2021-02-02 12:43 | Outpatient (CLI) | payer MEDICARE, OTHER, SELFPAY ==
[2021-02-02 14:00] LABS: COVID19 -Nasal RAPID Negative (Negative)
== END ==
PROVIDERS: PCP Internal Medicine; Referring Provider Physician Assistant; Visit Provider Physician Assistant
DX: R06.02 Shortness of breath (principal)
CPT/HCPCS: 87635; C9803

== ENCOUNTER → 2021-02-02 12:45 | Outpatient (CLI) | payer MEDICARE, OTHER, SELFPAY ==
--- NOTE | 2021-02-11 07:59 | PM.PFT.1 ---
Pulmonary Function Test Referral & Results Date Patient Seen: 02/02/21 Requesting provider: Bharathi Amador Results: The spirometry demonstrates an FVC of 3.19 L which is 85% of predicted. The FEV1 was measured at 2.21 L which is 82% of predicted. The FEV1/FVC ratio was 69 which is 94% of predicted. Following the administration of bronchodilator there was a 20% improvement in FEF 25-75%. Lung volumes show an SVC of 3.21 L which is 81% of predicted. The diffusing capacity was measured at 22.58 which is 83% of predicted. The maximum voluntary ventilation was normal Interpretation: This study demonstrates perhaps very mild obstructive lung disease based on minimal reduction FEV1 although FEV1/FVC ratio is preserved. Shape a flow volume loop and minimal improvement in small airway flow post bronchodilator also support minimal obstructive lung disease There is a minimal reduction SVC suggesting the possibility minimal restrictive lung disease being present as well There is also a minimal reduction in diffusing capacity Clinical correlation suggested
== END ==
PROVIDERS: PCP Internal Medicine; Referring Provider Internal Medicine; Visit Provider Internal Medicine
DX: R06.02 Shortness of breath (principal); Z20.822 Contact with and (suspected) exposure to COVID-19; J98.8 Other specified respiratory disorders
CPT/HCPCS: 87635; 94060; 94726; 94729; C9803

== ENCOUNTER → 2021-02-07 09:23 | Outpatient (CLI) | payer MEDICARE, OTHER, SELFPAY ==
[2021-02-07 10:23] LABS: Add Manual Diff / Slide Review NO; Basophils Absolute Auto 100 /uL (0-100); Basophils Percent Auto 0.6 % (0-2); Eosinophils Absolute Auto 100 /uL (0-450); Eosinophils Percent Auto 1.2 % (2-4); Hematocrit 41.4 % (41-53); Hemoglobin 14.2 g/dL (13.5-17.5); Lymphocytes Absolute Auto 1600 /uL (1100-4500); Lymphocytes Percent Auto 17.5 % (25-40); Mean Corpuscular HGB Conc 34.3 % (30-36); Mean Corpuscular Volume 84.5 fL (80-100); Monocytes Absolute Auto 700 /uL (0-900); Monocytes Percent Auto 7.1 % (3-14); Neutrophils Absolute Auto 6900 /uL (1500-7000); Neutrophils Percent Auto 73.6 % (50-75); Platelet Count 220 X10^3/uL (150-400); Red Cell Distribution Width 13.4 % (11.6-14.8); White Blood Cell Count 9.4 X10^3/uL (4.5-11.0)
[2021-02-07 10:58] LABS: HEMOLYSIS < 15 (0-50); Iron 56 ug/dL (49-181)
[2021-02-07 10:59] LABS: Alanine Aminotransferase 35 IU/L (<50); Albumin 4.2 g/dL (3.5-5.0); Albumin Globulin Ratio 1.5 (1.0-2.8); Alkaline Phosphatase 124 U/L (38-126); Aspartate Aminotransferase 32 IU/L (17-59); BUN Creatinine Ratio 23.2 (6-22); Bilirubin Total 0.4 mg/dL (0.2-1.3); Blood Urea Nitrogen 19 mg/dL (9-20); Calcium 10.3 mg/dL (8.4-10.2); Carbon Dioxide 28 mmol/L (22-32); Chloride 99 mmol/L (98-107); Estimated Glomerular Filt Rate > 60.0 mL/min (>60); Globulin 2.8 g/dL (1.7-4.1); Glucose 145 mg/dL (80-110); HEMOLYSIS < 15 (0-50); Potassium 4.3 mmol/L (3.4-5.1); Sodium 135 mmol/L (137-145)
[2021-02-07 11:09] LABS: Percent Iron Saturation 14 % (20-50); Total Iron Binding Capacity 407 ug/dL (261-462); Transferrin 299 mg/dL (206-381)
[2021-02-07 11:27] LABS: TSH w/ Reflex to FT4 0.95 uIU/mL (0.47-4.68)
== END ==
PROVIDERS: PCP Internal Medicine; Referring Provider Internal Medicine; Visit Provider Internal Medicine
DX: E11.9 Type 2 diabetes mellitus without complications (principal); I10 Essential (primary) hypertension; D50.0 Iron deficiency anemia secondary to blood loss (chronic)
CPT/HCPCS: 36415; 80053; 83540; 83550; 84443; 85025

== ENCOUNTER → 2021-03-01 11:51 | Outpatient (CLI) | payer MEDICARE, OTHER, SELFPAY ==
[2021-03-01 12:22] LABS: Uric Acid 5.4 mg/dL (3.5-8.5)
== END ==
PROVIDERS: PCP Internal Medicine; Referring Provider Podiatrist; Visit Provider Podiatrist
DX: M12.10 Kaschin-Beck disease, unspecified site (principal)
CPT/HCPCS: 36415; 84550

== ENCOUNTER → 2021-03-23 06:54 | Outpatient (CLI) | payer MEDICARE, OTHER, SELFPAY ==
[2021-03-23 08:42] LABS: Alanine Aminotransferase 33 IU/L (<50); Albumin 4.2 g/dL (3.5-5.0); Albumin Globulin Ratio 1.4 (1.0-2.8); Alkaline Phosphatase 110 U/L (38-126); Aspartate Aminotransferase 33 IU/L (17-59); BUN Creatinine Ratio 20.2 (6-22); Bilirubin Total 0.5 mg/dL (0.2-1.3); Blood Urea Nitrogen 18 mg/dL (9-20); Calcium 9.6 mg/dL (8.4-10.2); Carbon Dioxide 30 mmol/L (22-32); Chloride 100 mmol/L (98-107); Estimated Glomerular Filt Rate > 60.0 mL/min (>60); Globulin 2.9 g/dL (1.7-4.1); Glucose 144 mg/dL (80-110); HEMOLYSIS < 15 (0-50); Magnesium 1.6 mg/dL (1.6-2.3); Potassium 3.4 mmol/L (3.4-5.1); Sodium 137 mmol/L (137-145); Total Protein 7.1 g/dL (6.3-8.2)
[2021-03-25 11:00] LABS: Cholesterol, Total 133 mg/dL (100-199); HDL-Cholesterol 45 mg/dL (>39); HDL-Particle (Total) 33.1 umol/L (>=30.5); LDL Particle 658 nmol/L (<1000); LDL-Cholsterol 65 mg/dL (0-99); LP-IR Score 34 (<=45); Small LDL- Particle 258 nmol/L (<=527); Triglycerides 131 mg/dL (0-149)
== END ==
PROVIDERS: PCP Internal Medicine; Referring Provider Physician Assistant Medical; Visit Provider Physician Assistant Medical
DX: E78.00 Pure hypercholesterolemia, unspecified (principal); I10 Essential (primary) hypertension
CPT/HCPCS: 36415; 80053; 80061; 83704; 83735

== ENCOUNTER → 2021-03-28 08:42 | Outpatient (CLI) | payer MEDICARE, OTHER, SELFPAY ==
--- NOTE | 2021-03-28 08:47 | DI.RAD.S_ITS ---
PROCEDURE: XR LUMBAR SPINE MIN 4V INDICATIONS: SPINAL STENOSIS TECHNIQUE: 4 views of the lumbar spine acquired, including flexion and extension views. COMPARISON: [facility], RG, MRI L-SPINE W/O CONTRAST, 01/17/2019, 12:18. FINDINGS: Bones: 5 nonrib-bearing vertebrae are present. No significant scoliosis. No vertebral body compression fractures. Multilevel vertebral body osteophytes. There is lower lumbar spine facet joint hypertrophy which results in neural foraminal narrowing at L4-L5 and L5-S1. No suspicious bony lesions. Soft tissues: Overlying bowel gas pattern is normal. No suspicious soft tissue calcifications. Calcific density in the left lower quadrant. These could be pill fragments. Vascular calcifications. Flexion/extension: Range of motion is within normal limits normal limits, with preserved normal alignment. IMPRESSION: No compression fracture. Moderate degenerative change. L4-L5 and L5-S1 neural foraminal narrowing. Dictated by: Chandrakant Badillo M.D. on 03/28/2021 at 8:36 Approved by: Chandrakant Badillo M.D. on 03/28/2021 at 8:42
== END ==
PROVIDERS: PCP Internal Medicine; Referring Provider Internal Medicine; Visit Provider Internal Medicine
DX: M48.061 Spinal stenosis, lumbar region without neurogenic claudication (principal); M48.07 Spinal stenosis, lumbosacral region; M47.816 Spondylosis without myelopathy or radiculopathy, lumbar region
CPT/HCPCS: 72110

== ENCOUNTER → 2021-04-28 06:50 | Outpatient (CLI) | payer MEDICARE, OTHER, SELFPAY ==
[2021-04-28 08:18] LABS: BUN Creatinine Ratio 23.3 (6-22); Blood Urea Nitrogen 24 mg/dL (9-20); Calcium 9.9 mg/dL (8.4-10.2); Carbon Dioxide 29 mmol/L (22-32); Chloride 96 mmol/L (98-107); Estimated Glomerular Filt Rate > 60.0 mL/min (>60); Glucose 238 mg/dL (80-110); HEMOLYSIS < 15 (0-50); Magnesium 2.1 mg/dL (1.6-2.3); Potassium 3.6 mmol/L (3.4-5.1); Sodium 135 mmol/L (137-145)
== END ==
PROVIDERS: PCP Internal Medicine; Referring Provider Specialist; Visit Provider Specialist
DX: I10 Essential (primary) hypertension (principal); E78.2 Mixed hyperlipidemia
CPT/HCPCS: 36415; 80048; 83735

== ENCOUNTER → 2021-05-16 08:21 | Outpatient (CLI) | payer MEDICARE, OTHER, SELFPAY ==
[2021-05-16 09:18] LABS: BUN Creatinine Ratio 22.3 (6-22); Blood Urea Nitrogen 23 mg/dL (9-20); Calcium 9.7 mg/dL (8.4-10.2); Carbon Dioxide 28 mmol/L (22-32); Chloride 97 mmol/L (98-107); Estimated Glomerular Filt Rate > 60.0 mL/min (>60); Glucose 173 mg/dL (80-110); HEMOLYSIS < 15 (0-50); Potassium 3.7 mmol/L (3.4-5.1); Sodium 134 mmol/L (137-145)
== END ==
PROVIDERS: PCP Internal Medicine; Visit Provider Specialist
DX: I10 Essential (primary) hypertension (principal)
CPT/HCPCS: 36415; 80048

== ENCOUNTER → 2021-07-01 07:53 | Outpatient (CLI) | payer MEDICARE, OTHER, SELFPAY ==
[2021-07-01 09:14] LABS: Alanine Aminotransferase 29 IU/L (<50); Albumin 4.1 g/dL (3.5-5.0); Albumin Globulin Ratio 1.5 (1.0-2.8); Alkaline Phosphatase 95 U/L (38-126); Aspartate Aminotransferase 28 IU/L (17-59); BUN Creatinine Ratio 21.3 (6-22); Bilirubin Total 0.5 mg/dL (0.2-1.3); Blood Urea Nitrogen 19 mg/dL (9-20); Calcium 9.8 mg/dL (8.4-10.2); Carbon Dioxide 24 mmol/L (22-32); Chloride 104 mmol/L (98-107); Estimated Glomerular Filt Rate > 60.0 mL/min (>60); Globulin 2.7 g/dL (1.7-4.1); Glucose 163 mg/dL (80-110); HEMOLYSIS < 15 (0-50); Potassium 3.9 mmol/L (3.4-5.1); Sodium 137 mmol/L (137-145); Total Protein 6.8 g/dL (6.3-8.2)
== END ==
PROVIDERS: PCP Internal Medicine; Referring Provider Physician Assistant Medical; Visit Provider Specialist
DX: I10 Essential (primary) hypertension (principal); E78.2 Mixed hyperlipidemia
CPT/HCPCS: 36415; 80053; 83735

== ENCOUNTER → 2021-08-22 06:52 | Outpatient (CLI) | payer MEDICARE, OTHER, SELFPAY ==
[2021-08-22 08:32] LABS: Hemoglobin A1C% w Est Avg Glu 6.2 % (4.0-6.0)
== END ==
PROVIDERS: PCP Internal Medicine; Referring Provider Internal Medicine Endocrinology, Diabetes & Metabolism; Visit Provider Internal Medicine Endocrinology, Diabetes & Metabolism
DX: E11.9 Type 2 diabetes mellitus without complications (principal)
CPT/HCPCS: 36415; 83036

== ENCOUNTER → 2021-10-26 06:50 | Outpatient (CLI) | payer MEDICARE, OTHER, SELFPAY ==
[2021-10-26 08:33] LABS: Alanine Aminotransferase 27 IU/L (<50); Albumin 4.2 g/dL (3.5-5.0); Albumin Globulin Ratio 1.4 (1.0-2.8); Alkaline Phosphatase 117 U/L (38-126); Aspartate Aminotransferase 25 IU/L (17-59); Bilirubin Total 0.6 mg/dL (0.2-1.3); Blood Urea Nitrogen 23 mg/dL (9-20); Calcium 9.4 mg/dL (8.4-10.2); Carbon Dioxide 24 mmol/L (22-32); Chloride 102 mmol/L (98-107); Estimated Glomerular Filt Rate > 60 mL/min (>60); Globulin 3.1 g/dL (1.7-4.1); Glucose 194 mg/dL (80-110); HEMOLYSIS 19 (0-50); Magnesium 1.9 mg/dL (1.6-2.3); Potassium 3.7 mmol/L (3.4-5.1); Sodium 135 mmol/L (137-145); Total Protein 7.3 g/dL (6.3-8.2)
== END ==
PROVIDERS: PCP Internal Medicine; Referring Provider Specialist; Visit Provider Specialist
DX: I10 Essential (primary) hypertension (principal); E78.2 Mixed hyperlipidemia
CPT/HCPCS: 36415; 80053; 83735

== ENCOUNTER → 2022-01-03 08:30 | Outpatient (CLI) | payer MEDICARE, OTHER, SELFPAY ==
[2022-01-03 09:21] LABS: Hematocrit 41.8 % (41-53); Hemoglobin 14.9 g/dL (13.5-17.5); Mean Corpuscular HGB Conc 35.5 % (30-36); Mean Corpuscular Hemoglobin 30.1 PG (26-34); Mean Corpuscular Volume 84.8 fL (80-100); Platelet Count 205 X10^3/uL (150-400); Red Blood Cell Count 4.93 X10^6/uL (4.5-5.9); Red Cell Distribution Width 13.3 % (11.6-14.8); White Blood Cell Count 7.5 X10^3/uL (4.5-11.0)
[2022-01-03 09:31] LABS: Hemoglobin A1C% w Est Avg Glu 6.3 % (4.0-6.0)
[2022-01-03 09:55] LABS: Creatinine Urine Random 21.3 mg/dL
[2022-01-03 11:20] LABS: Microalbumin Urine Random < 0.6 mg/dL (0-1.6)
[2022-01-03 12:12] LABS: HEMOLYSIS < 15 (0-50); Iron 104 ug/dL (49-181)
[2022-01-03 12:19] LABS: Alanine Aminotransferase 31 IU/L (<50); Albumin 4.5 g/dL (3.5-5.0); Albumin Globulin Ratio 1.6 (1.0-2.8); Alkaline Phosphatase 119 U/L (38-126); Aspartate Aminotransferase 31 IU/L (17-59); BUN Creatinine Ratio 20.4 (6-22); Bilirubin Total 0.6 mg/dL (0.2-1.3); Blood Urea Nitrogen 20 mg/dL (9-20); Calcium 9.4 mg/dL (8.4-10.2); Carbon Dioxide 30 mmol/L (22-32); Chloride 101 mmol/L (98-107); Estimated Glomerular Filt Rate > 60 mL/min (>60); Globulin 2.8 g/dL (1.7-4.1); Glucose 126 mg/dL (80-110); HEMOLYSIS < 15 (0-50); Potassium 3.8 mmol/L (3.4-5.1); Sodium 138 mmol/L (137-145); Total Protein 7.3 g/dL (6.3-8.2)
[2022-01-03 12:26] LABS: Percent Iron Saturation 26 % (20-50); Total Iron Binding Capacity 399 ug/dL (261-462); Transferrin 304 mg/dL (206-381)
[2022-01-03 12:42] LABS: TSH w/ Reflex to FT4 0.97 uIU/mL (0.47-4.68)
[2022-01-03 12:59] LABS: Prostate Specific Antigen 1.66 ng/mL (0.10-4.00)
[2022-01-03 13:02] LABS: Ferritin 59 ng/mL (18-464)
== END ==
PROVIDERS: PCP Internal Medicine; Referring Provider Internal Medicine; Visit Provider Internal Medicine
DX: D50.9 Iron deficiency anemia, unspecified (principal); E11.59 Type 2 diabetes mellitus with other circulatory complications; N40.1 Benign prostatic hyperplasia with lower urinary tract symptoms; I10 Essential (primary) hypertension; I25.10 Atherosclerotic heart disease of native coronary artery without angina pectoris; N13.8 Other obstructive and reflux uropathy
CPT/HCPCS: 36415; 80053; 82043; 82570; 82728; 83036; 83540; 83550; 84153; 84443; 85027

== ENCOUNTER 2022-04-04 12:27 | Emergency (ER) | payer MEDICARE, OTHER, SELFPAY ==
[2022-04-04 12:32] VITALS: BP 182/89; PULSE 91; RESP 16; TEMP 36.6; O2SAT 98; BMI 26.6
--- NOTE | 2022-04-04 12:38 | DI.RAD.S_ITS ---
PROCEDURE: XR CHEST 1V INDICATIONS: chest pain TECHNIQUE: One view of the chest was acquired. COMPARISON: [facility], CR, XR CHEST 1V, 12/14/2017, 5:17. FINDINGS: Surgical changes and devices: None. Lungs and pleura: Lungs are clear. No pleural effusions or pneumothorax. Mediastinum: Mediastinal contours appear normal. Heart size is normal. Bones and chest wall: No suspicious bony lesions. Overlying soft tissues appear unremarkable. IMPRESSION: No acute cardiopulmonary process demonstrated radiographically. Dictated by: Chuckie Rosenthal M.D. on 04/04/2022 at 13:01 Approved by: Chuckie Rosenthal M.D. on 04/04/2022 at 13:01
[2022-04-04 13:01] LABS: Add Manual Diff / Slide Review NO; Basophils Absolute Auto 0 /uL (0-100); Basophils Percent Auto 0.6 % (0-2); Eosinophils Absolute Auto 100 /uL (0-450); Eosinophils Percent Auto 0.9 % (2-4); Hematocrit 44.4 % (41-53); Hemoglobin 15.7 g/dL (13.5-17.5); Lymphocytes Absolute Auto 1300 /uL (1100-4500); Lymphocytes Percent Auto 17.9 % (25-40); Mean Corpuscular HGB Conc 35.5 % (30-36); Mean Corpuscular Hemoglobin 29.9 PG (26-34); Mean Corpuscular Volume 84.2 fL (80-100); Monocytes Absolute Auto 500 /uL (0-900); Monocytes Percent Auto 7.4 % (3-14); Neutrophils Absolute Auto 5200 /uL (1500-7000); Neutrophils Percent Auto 73.2 % (50-75); Platelet Count 199 X10^3/uL (150-400); Red Blood Cell Count 5.27 X10^6/uL (4.5-5.9); Red Cell Distribution Width 12.6 % (11.6-14.8); White Blood Cell Count 7.1 X10^3/uL (4.5-11.0)
[2022-04-04 13:11] LABS: Alanine Aminotransferase 33 IU/L (<50); Albumin 4.7 g/dL (3.5-5.0); Albumin Globulin Ratio 1.4 (1.0-2.8); Alkaline Phosphatase 137 U/L (38-126); Aspartate Aminotransferase 33 IU/L (17-59); BUN Creatinine Ratio 24.7 (6-22); Bilirubin Total 0.5 mg/dL (0.2-1.3); Blood Urea Nitrogen 22 mg/dL (9-20); Calcium 9.6 mg/dL (8.4-10.2); Carbon Dioxide 26 mmol/L (22-32); Chloride 101 mmol/L (98-107); Creatine Kinase 171 U/L (55-170); Estimated Glomerular Filt Rate > 60 mL/min (>60); Globulin 3.4 g/dL (1.7-4.1); Glucose 213 mg/dL (80-110); Lipase 105 U/L (23-300); Potassium 3.5 mmol/L (3.4-5.1); Sodium 139 mmol/L (137-145); Total Protein 8.1 g/dL (6.3-8.2)
[2022-04-04 13:22] LABS: Troponin I < 0.012 ng/mL (0.01-0.034)
[2022-04-04 13:25] LABS: CKMB % Relative Index 1.4 % (1.5-5.0); Creatine Kinase MB 2.46 ng/mL (<2.37); HEMOLYSIS < 15 (0-50)
[2022-04-04 15:42] LABS: Troponin I < 0.012 ng/mL (0.01-0.034)
[2022-04-04 16:00] VITALS: BP 136/78; PULSE 70; RESP 14; O2SAT 99
== END 2022-04-04 16:03 | disposition left against medical advice (07) ==
PROVIDERS: Emergency Provider Emergency Medicine; PCP Internal Medicine
DX: R07.9 Chest pain, unspecified (principal)
CPT/HCPCS: 36415; 71045; 80053; 82550; 82553; 83690; 83735; 84484; 85025; 93005; 93010; 99283

== ENCOUNTER → 2022-04-28 06:56 | Outpatient (CLI) | payer MEDICARE, OTHER, SELFPAY ==
[2022-04-28 09:04] LABS: Hemoglobin A1C% w Est Avg Glu 6.1 % (4.0-6.0)
[2022-04-28 09:20] LABS: Alanine Aminotransferase 32 IU/L (<50); Albumin 4.2 g/dL (3.5-5.0); Albumin Globulin Ratio 1.4 (1.0-2.8); Alkaline Phosphatase 127 U/L (38-126); Aspartate Aminotransferase 26 IU/L (17-59); Bilirubin Total 0.6 mg/dL (0.2-1.3); Blood Urea Nitrogen 20 mg/dL (9-20); Calcium 9.2 mg/dL (8.4-10.2); Carbon Dioxide 28 mmol/L (22-32); Chloride 101 mmol/L (98-107); Estimated Glomerular Filt Rate > 60 mL/min (>60); Globulin 2.9 g/dL (1.7-4.1); Glucose 100 mg/dL (80-110); HEMOLYSIS < 15 (0-50); Magnesium 1.9 mg/dL (1.6-2.3); Potassium 3.7 mmol/L (3.4-5.1); Sodium 138 mmol/L (137-145); Total Protein 7.1 g/dL (6.3-8.2)
[2022-04-30 11:43] LABS: Cholesterol, Total 134 mg/dL (100-199); HDL-Cholesterol 53 mg/dL (>39); HDL-Particle (Total) 33.9 umol/L (>=30.5); LDL Particle 590 nmol/L (<1000); LDL Size 20.9 nm (>20.5); LDL-Cholsterol 55 mg/dL (0-99); LP-IR Score 64 (<=45); Small LDL- Particle 245 nmol/L (<=527); Triglycerides 151 mg/dL (0-149)
== END ==
PROVIDERS: PCP Internal Medicine; Referring Provider Physician Assistant Medical; Visit Provider Physician Assistant Medical
DX: E11.59 Type 2 diabetes mellitus with other circulatory complications (principal); I10 Essential (primary) hypertension; E78.2 Mixed hyperlipidemia
CPT/HCPCS: 36415; 80053; 80061; 83036; 83704; 83735

== ENCOUNTER → 2022-08-09 06:49 | Outpatient (CLI) | payer MEDICARE, OTHER, SELFPAY ==
[2022-08-09 08:32] LABS: BUN Creatinine Ratio 26.3 (6-22); Blood Urea Nitrogen 21 mg/dL (9-20); Calcium 9.3 mg/dL (8.4-10.2); Carbon Dioxide 25 mmol/L (22-32); Chloride 101 mmol/L (98-107); Estimated Glomerular Filt Rate > 60 mL/min (>60); Glucose 163 mg/dL (80-110); HEMOLYSIS < 15 (0-50); Potassium 3.8 mmol/L (3.4-5.1); Sodium 137 mmol/L (137-145)
== END ==
PROVIDERS: PCP Internal Medicine; Referring Provider Internal Medicine; Visit Provider Internal Medicine
DX: I10 Essential (primary) hypertension (principal)
CPT/HCPCS: 36415; 80048

== ENCOUNTER → 2022-10-16 06:48 | Outpatient (CLI) | payer MEDICARE, OTHER, SELFPAY ==
[2022-10-16 08:45] LABS: HEMOLYSIS < 15 (0-50); Iron 103 ug/dL (49-181)
[2022-10-16 08:47] LABS: Alanine Aminotransferase 35 IU/L (<50); Albumin 4.3 g/dL (3.5-5.0); Albumin Globulin Ratio 1.3 (1.0-2.8); Alkaline Phosphatase 118 U/L (38-126); Aspartate Aminotransferase 27 IU/L (17-59); BUN Creatinine Ratio 22.9 (6-22); Bilirubin Total 0.5 mg/dL (0.2-1.3); Blood Urea Nitrogen 19 mg/dL (9-20); Calcium 9.5 mg/dL (8.4-10.2); Carbon Dioxide 31 mmol/L (22-32); Chloride 102 mmol/L (98-107); Cholesterol 155 mg/dL (140-199); Estimated Glomerular Filt Rate > 60 mL/min (>60); Globulin 3.3 g/dL (1.7-4.1); Glucose 130 mg/dL (80-110); HDL Cholesterol 54 mg/dL (40-60); HEMOLYSIS < 15 (0-50); LDL Cholesterol Calculated 67 mg/dL (<100); Magnesium 2.1 mg/dL (1.6-2.3); Potassium 4.1 mmol/L (3.4-5.1); Sodium 139 mmol/L (137-145); Total Protein 7.6 g/dL (6.3-8.2); Triglycerides 172 mg/dL (35-150)
[2022-10-16 08:57] LABS: Percent Iron Saturation 26 % (20-50); Total Iron Binding Capacity 393 ug/dL (261-462); Transferrin 299 mg/dL (206-381)
[2022-10-16 09:15] LABS: Prostate Specific Antigen 2.17 ng/mL (0.10-4.00)
[2022-10-16 09:16] LABS: TSH w/ Reflex to FT4 1.44 uIU/mL (0.47-4.68)
[2022-10-16 09:19] LABS: Ferritin 49 ng/mL (18-464)
[2022-10-16 10:42] LABS: Creatinine Urine Random 57.8 mg/dL
[2022-10-16 10:45] LABS: Microalbumi Creatinin Ratio Ur 50.1 ug/mg CR (<30); Microalbumin Urine Random 2.9 mg/dL (0-1.6)
[2022-10-17 23:43] LABS: Labcorp Hemoglobin (Hb) A1c 6.2 % (4.8-5.6)
[2022-10-18 09:59] LABS: Cholesterol, Total 151 mg/dL (100-199); HDL-Cholesterol 56 mg/dL (>39); HDL-Particle (Total) 36.9 umol/L (>=30.5); LDL Particle 713 nmol/L (<1000); LDL Size 21.3 nm (>20.5); LDL-Cholsterol 68 mg/dL (0-99); LP-IR Score 52 (<=45); Small LDL- Particle 232 nmol/L (<=527); Triglycerides 162 mg/dL (0-149)
== END ==
PROVIDERS: PCP Internal Medicine; Referring Provider Specialist; Visit Provider Specialist
DX: D50.0 Iron deficiency anemia secondary to blood loss (chronic); I10 Essential (primary) hypertension; N40.1 Benign prostatic hyperplasia with lower urinary tract symptoms; E78.2 Mixed hyperlipidemia; E11.59 Type 2 diabetes mellitus with other circulatory complications; I25.10 Atherosclerotic heart disease of native coronary artery without angina pectoris; N13.8 Other obstructive and reflux uropathy
CPT/HCPCS: 80053; 80061; 82043; 82570; 82728; 83036; 83540; 83550; 83704; 83735; 84153; 84443

== ENCOUNTER → 2022-10-23 09:10 | Outpatient (CLI) | payer MEDICARE, OTHER, SELFPAY ==
[2022-10-23 10:23] LABS: Creatinine Urine Random 21.4 mg/dL
[2022-10-23 10:30] LABS: Microalbumin Urine Random 1.2 mg/dL (0-1.6)
== END ==
PROVIDERS: PCP Internal Medicine; Referring Provider Internal Medicine; Visit Provider Internal Medicine
DX: Z86.010 Personal history of colon polyps (principal)
CPT/HCPCS: 82043; 82570

== ENCOUNTER 2022-12-25 06:42 | Inpatient (IN) | payer MEDICARE, OTHER, SELFPAY ==
[2022-12-25] VITALS (46 sets, daily range): BP systolic 137–236; BP diastolic 66–108; PULSE 77–98; RESP 12–28; TEMP 36.5–37.1; O2SAT 93–98; BMI 28.0
--- NOTE | 2022-12-25 06:57 | DI.CT.S_ITS ---
PROCEDURE: CT HEAD/BRAIN WO CON INDICATIONS: headache with confusion TECHNIQUE: Noncontrast 4.5 mm thick angled axial sections acquired from the foramen magnum to the vertex, with coronal and sagittal reformats. For radiation dose reduction, the following was used: automated exposure control, adjustment of mA and/or kV according to patient size. COMPARISON: None. FINDINGS: Image quality: Excellent. CSF spaces: Basal cisterns are patent. No extra-axial fluid collections. The ventricles are symmetric in size and shape. Brain: No intracranial bleeds or masses. There is cerebral volume loss for age, with resultant ventricular and sulcal prominence. There are periventricular and deep white matter chronic small vessel ischemic changes. There is intracranial internal carotid artery atherosclerosis. Skull and face: Calvarium and visualized facial bones appear intact, without suspicious lesions. Sinuses: Visualized sinuses and mastoids are clear. IMPRESSION: 1. CT head without acute intracranial abnormalities or acute calvarial fractures. 2. Age-related senescent changes and sequela of chronic small vessel ischemic disease. If there is persistent or high clinical suspicion for acute cerebrovascular ischemia/stroke, more sensitive evaluation with brain MRI can be considered. Findings were discussed with Dr. Whittington at [id number]. Dictated by: Jet Cavazos M.D. on 12/25/2022 at 7:38 Approved by: Jet Cavazos M.D. on 12/25/2022 at 7:41
--- NOTE | 2022-12-25 06:57 | DI.RAD.S_ITS ---
PROCEDURE: XR CHEST 1V INDICATIONS: chest pain TECHNIQUE: One view of the chest was acquired. COMPARISON: [facility], CR, XR CHEST 1V, 04/04/2022, 12:42. FINDINGS: Surgical changes and devices: None. Lungs and pleura: Lungs are clear. No pleural effusions or pneumothorax. Mediastinum: Mediastinal contours appear normal. Heart size is normal. Bones and chest wall: No suspicious bony lesions. Overlying soft tissues appear unremarkable. IMPRESSION: No acute cardiopulmonary abnormality. Dictated by: Chandrakant Badillo M.D. on 12/25/2022 at 7:39 Approved by: Chandrakant Badillo M.D. on 12/25/2022 at 7:40
--- NOTE | 2022-12-25 07:14 | DI.CT.S_ITS ---
PROCEDURE: CT ANGIO HEAD AND NECK INDICATIONS: Headache with confusion TECHNIQUE: After the administration of intravenous contrast, 1 mm thick sections acquired from the aortic arch through the [place]. Post-contrast 4.5 mm thick sections then re-acquired from the foramen magnum to the vertex. 3-dimensional aumnxbh-fxeawnkfv-elsdhmqzik (MIP) and/or volume rendering reformats were acquired of the central intracranial vasculature and neck separately. For radiation dose reduction, the following was used: automated exposure control, adjustment of mA and/or kV according to patient size. COMPARISON: [facility], CT, CT HEAD/BRAIN WO CON, 12/25/2022, 7:29. FINDINGS: Image quality: Excellent. BRAIN: CSF spaces: Ventricles are normal in size and shape. Basal cisterns are patent. No extra-axial fluid collections. Brain: No midline shift. No intracranial bleeds or masses. Ryder-white matter interface appears intact. No areas of abnormal enhancement identified. Skull and face: Calvarium and facial bones appear intact, without suspicious lesions. Orbits appear normal. Sinuses: Sinuses and mastoids are clear. HEAD CT ANGIOGRAPHY: Anterior circulation: Scattered atherosclerotic calcifications of the intracranial segments of the internal carotid arteries. Intracranial internal carotid arteries appear patent without high-grade stenosis. There is flow/opacification within the paired anterior cerebral arteries. There is opacification within the middle cerebral arteries. The anterior communicating artery is seen. No aneurysms are seen. No occlusion. Posterior circulation: Visualized portions of the vertebral arteries are patent and join to form a normal appearing basilar artery. No evidence for high-grade stenosis. No occlusions. There is opacification of the posterior cerebral arteries. No aneurysms are seen. NECK CT ANGIOGRAPHY: Carotid system: The great vessels demonstrate a conventional anatomy as they arise from the aortic arch. Atherosclerotic calcifications noted within the aortic arch. The origins of the common carotid arteries appear patent. The common carotid arteries appear patent throughout their visualized courses without high grade stenosis. Atherosclerotic calcifications noted at the carotid bifurcations bilaterally. The bifurcation regions are both patent without high grade stenosis. The internal carotid arteries demonstrate normal calibers and courses. Posterior circulation: Mild atherosclerotic calcifications at the origins of the vertebral arteries. The origins of the vertebral arteries both appear patent without hemodynamically significant stenosis. The more superior extracranial portions of both vertebral arteries also demonstrate normal courses and calibers. They join to form a normal appearing basilar artery. Soft tissues: Visualized neck soft tissues demonstrate no suspicious abnormalities. Bones: No suspicious bony lesions. Severe multilevel cervical spondylosis with disc space loss, degenerative endplate changes, and prominent endplate osteophyte formation. Findings are most severe at C3-4, C5-6, C6-7, and C7-T1. Straightening of cervical lordosis. Minimal retrolisthesis of C3 on C4. Mild anterolisthesis of C7 on T1. Mild spinal canal stenosis at C3-4, C5-6, and C6-7 with variable degrees of bilateral bony neural foraminal stenosis. No severe spinal canal stenosis visualized. No acute compression fractures of the vertebral bodies. IMPRESSION: 1. Negative CT angiogram of the intracranial arterial vasculature as well as the neck arterial vasculature. Scattered atherosclerotic calcifications. No high-grade stenosis visualized. 2. Severe multilevel cervical spondylosis as described above. If there is persistent clinical concern for intracranial pathology, consider further evaluation with brain MRI Any quantitative measurements of stenosis were performed using NASCET criteria. Dictated by: Jet Cavazos M.D. on 12/25/2022 at 7:46 Approved by: Jet Cavazos M.D. on 12/25/2022 at 7:58
[2022-12-25 07:39] LABS: Add Manual Diff / Slide Review NO; Basophils Absolute Auto 100 /uL (0-100); Basophils Percent Auto 0.5 % (0-2); Eosinophils Absolute Auto 0 /uL (0-450); Eosinophils Percent Auto 0.2 % (2-4); Hematocrit 44.6 % (41-53); Hemoglobin 15.6 g/dL (13.5-17.5); Lymphocytes Absolute Auto 1400 /uL (1100-4500); Lymphocytes Percent Auto 10.9 % (25-40); Mean Corpuscular Hemoglobin 29.7 PG (26-34); Mean Corpuscular Volume 84.8 fL (80-100); Monocytes Absolute Auto 900 /uL (0-900); Monocytes Percent Auto 7.6 % (3-14); Neutrophils Absolute Auto 10000 /uL (1500-7000); Neutrophils Percent Auto 80.8 % (50-75); Platelet Count 252 X10^3/uL (150-400); Red Blood Cell Count 5.26 X10^6/uL (4.5-5.9); Red Cell Distribution Width 13.2 % (11.6-14.8); White Blood Cell Count 12.4 X10^3/uL (4.5-11.0)
[2022-12-25 07:45] LABS: Prothrombin Time 11.6 SECONDS (10.1-12.7)
[2022-12-25 07:48] LABS: PTT Partial Thromboplastin Tim 29 SECONDS (26-36)
[2022-12-25 07:54] LABS: Alanine Aminotransferase 35 IU/L (<50); Albumin 4.4 g/dL (3.5-5.0); Albumin Globulin Ratio 1.3 (1.0-2.8); Alkaline Phosphatase 121 U/L (38-126); Aspartate Aminotransferase 27 IU/L (17-59); BUN Creatinine Ratio 26.4 (6-22); Bilirubin Total 0.6 mg/dL (0.2-1.3); Blood Urea Nitrogen 23 mg/dL (9-20); Calcium 9.8 mg/dL (8.4-10.2); Carbon Dioxide 29 mmol/L (22-32); Chloride 96 mmol/L (98-107); Creatine Kinase 130 U/L (55-170); Estimated Glomerular Filt Rate > 60 mL/min (>60); Globulin 3.3 g/dL (1.7-4.1); Glucose 209 mg/dL (80-110); HEMOLYSIS < 15 (0-50); Lipase 41 U/L (23-300); Potassium 3.7 mmol/L (3.4-5.1); Sodium 133 mmol/L (137-145); Total Protein 7.7 g/dL (6.3-8.2)
[2022-12-25] MEDS: ASPIRIN 81 MG CHEW TAB 324 MG PO (08:00)
--- NOTE | 2022-12-25 08:02 | ED_ITS ---
HPI - Neuro Symptoms/Deficit General Chief Complaint: Neuro Symptoms/Deficit Stated Complaint: migraine T-1/confused/memory issues Time Seen by Provider: 12/25/22 07:18 Source: patient and family Mode of arrival: Ambulatory History of Present Illness HPI Narrative: Patient is a 72-year-old male with history of diabetes, coronary artery disease, hypertension presenting today with confusion. He reports that it started yesterday he developed a headache with blurry like vision in reports that he had special confusion. Difficulty finding things in the house he is confused this morning about what year and how old he is. Has no facial droop numbness tingling or weakness or ambulatory issue. Noted to be extremely hypertensive with a systolic in the 230s. He denies any chest pain palpitations or shortness of breath. No prior history of CVA. On Anticoagulants: No (aspirin 81mg) Related Data Home Medications Medication Instructions Recorded Confirmed aspirin 81 mg tablet,delayed 81 mg PO DAILY 12/14/17 12/25/22 release felodipine 5 mg tablet,extended 10 mg PO DAILY 01/13/22 12/25/22 release 24 hr atorvastatin 40 mg tablet 40 mg PO DAILY 04/19/22 12/25/22 multivitamin 1 tab PO DAILY 04/19/22 12/25/22 ferrous gluconate 324 mg (37.5 mg 324 mg PO DAILY 10/23/22 12/25/22 iron) tablet amoxicillin 500 mg capsule 500 mg PO Q8H 12/25/22 12/25/22 empagliflozin 25 mg tablet 25 mg PO DAILY 12/25/22 12/25/22 (Jardiance) nortriptyline 10 mg capsule 20 mg PO BEDTIME 12/25/22 12/25/22 Previous Rx's Medication Instructions Recorded blood sugar diagnostic (Contour #100 ea 07/11/22 Next Test Strips) metoprolol succinate 50 mg 50 mg PO DAILY #90 tabs 09/14/22 tablet,extended release 24 hr losartan 50 mg tablet 50 mg PO DAILY #90 tabs 10/23/22 finasteride 5 mg tablet 5 mg PO DAILY #90 tabs 11/13/22 metformin 500 mg tablet 500 mg PO BID #180 tabs 11/13/22 Allergies Allergy/AdvReac Type Severity Reaction Status Date / Time lisinopril Allergy Severe angioedema Verified 10/23/22 07:39 iron dextran complex Allergy Mild dextran Verified 10/23/22 07:39 reaction Review of Systems Review of Systems ROS Unobtainable: All systems reviewed & are unremarkable except as noted in HPI and below Hematologic/Lymphatic On Anticoagulants: No (aspirin 81mg) Patient History Medical History Allergic rhinitis Anemia (~2004) Asthma BPH w urinary obs/LUTS Cataracts, bilateral (~2017) Cervical spine disease (~1990) Chicken pox Chronic back pain (~2004) Colon polyps (~1999) Coronary artery disease Diabetes (~2017) Disease of spine (~1990) Essential hypertension GERD (gastroesophageal reflux disease) (~1999) GERD without esophagitis History of colonic polyps HTN (hypertension) (~1996) Hyperlipidemia (~1996) Insomnia secondary to chronic pain Iron deficiency anemia Low testosterone (~2010) Measles Migraines (~1979) Mixed hyperlipidemia Mumps Osteoarthritis (~2008) Osteopenia (~1999) Type 2 diabetes mellitus with cardiac complication Surgical History Anesthesia H/O heart artery stent Family History Father Cancer Hypertension Stroke Mother Cancer Hypertension Vascular dementia Grandfather History of heart disease Grandfather Cancer 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 details: (Reyna, 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 HEENT: Head atraumatic,EOMI, pupils reactive, face symmetric, moist mucous membranes CARDIOVASCULAR: Regular rate and rhythm without murmurs, rubs or gallops. RESPIRATORY: Breath sounds equal bilaterally, no wheezes rales or rhonchi. ABDOMEN: Soft, nontender. Normoactive bowel sounds all 4 quadrants. No guarding or rebound. EXTREMITIES: Normal range of motion, no clubbing or edema. Neurovascularly intact NEUROLOGICAL: Alert and oriented x2.Normal gait and speech. Cranial nerves II through XII grossly intact. Good [id number], good [id number], strength equal bilaterally, no dysarthria or aphasia, sensation in tact to soft touch bilaterally, no visual changes, no facial droop SKIN: Warm, dry, no laceration, no petechiae, no rashes or lesions. Scores NIH Stroke Scale Level of Conciousness: Alert, keenly responsive Ask month/age: Answers neither question correctly, aphasic, stuporous, coma Open/close eyes, close hand: Performs both tasks correctly Best gaze horizontal: Normal Visual james: No visual loss Facial palsy: Normal symetrical movement Left arm drift: No drift for full 10 sec Right arm drift: No drift for full 10 sec Left leg drift: No drift for full 5 sec Right leg drift: No drift for full 5 sec Limb ataxia: Absent Sensory on face/arms/legs: Normal, no sensory loss Best language: No aphasia, normal Dysarthria: Normal Extinction or inattention: No abnormality Total NIH Stroke scale score: 2 Course Orders Ordered: ED Orders 12/25/22 10:59 MR head/brain wo con Stat Acetaminophen (Acetaminophen 325 Mg Tablet) 650 mg PO Q6H PRN PRN Reason: Fever/Mild Pain (1-3) Last Admin: 12/25/22 14:15 Dose: 650 mg Documented By: CARLITOS Hydrocodone Bitart/Acetaminophen (Hydrocodone/Acet 5/325 Tablet) 1 tab PO BID PRN PRN Reason: pain Amoxicillin (Amoxicillin 250 Mg Capsule) 500 mg PO Q8H [facility] Aspirin (Aspirin Ec 81 Mg Tablet) 81 mg PO DAILY [facility] Last Admin: 12/25/22 09:36 Dose: Not Given Documented By: RB Atorvastatin Calcium (Atorvastatin 20 Mg Tablet) 80 mg PO BEDTIME [facility] Clopidogrel Bisulfate (Clopidogrel 75 Mg Tablet) 75 mg PO DAILY [facility] Stop: 01/14/23 11:59 Last Admin: 12/25/22 12:29 Dose: 75 mg Documented By: MM Dextrose (Dextrose 50 % In Water 25 Gm/50 Ml Syringe) 25 gm IV PRN PRN PRN Reason: Hypoglycemia Enoxaparin Sodium (Enoxaparin 40 Mg/0.4 Ml Syringe) 40 mg SUBCUT DAILY [facility] Last Admin: 12/25/22 09:37 Dose: 40 mg Documented By: RB Ferrous Sulfate (Ferrous Sulfate 325 Mg Tablet) 325 mg PO DAILY [facility] Last Admin: 12/25/22 10:03 Dose: Not Given Documented By: RB Finasteride (Finasteride 5 Mg Tablet) 5 mg PO DAILY [facility] Last Admin: 12/25/22 10:02 Dose: Not Given Documented By: RB Insulin Human Lispro (Insulin Lispro 100 Unit/Ml 3ml Vial) 0 unit SUBCUT ACHS [facility]; Protocol Last Admin: 12/25/22 16:39 Dose: Not Given Documented By: Admin: 12/25/22 11:56 Dose: 1 unit Documented By: MM Co-signed By: CARRI Labetalol HCl (Labetalol 20 Mg/4 Ml Syringe) 10 mg IV Q5MIN PRN PRN Reason: SBP >220 or DBP >110 Last Admin: 12/25/22 09:37 Dose: 10 mg Documented By: RB Lorazepam (Lorazepam 2 Mg/Ml Inj) 1 mg IV PRN PRN PRN Reason: for MRI Melatonin (Melatonin 3 Mg Tablet) 6 mg PO BEDTIME PRN PRN Reason: Insomnia Naloxone HCl (Naloxone 0.4 Mg/Ml Vial) 0.2 mg IV Q2MIN PRN PRN Reason: Opiate Reversal Empagliflozin [ Jardiance] 25 Mg Tablet 25 mg PO DAILY [facility] Stored In Pharmacy 1 each PO PRN PRN PRN Reason: PROTOCOL Nortriptyline HCl (Nortriptyline 10 Mg Capsule) 20 mg PO BEDTIME ABELINO Ondansetron HCl (Ondansetron 4 Mg/2 Ml Inj) 4 mg IV Q4HR [facility] Last Admin: 12/25/22 17:10 Dose: Not Given Documented By: Admin: 12/25/22 12:29 Dose: Not Given Documented By: MM Pantoprazole Sodium (Pantoprazole Dr 20 Mg Tablet) 20 mg PO 0600 [facility] Last Admin: 12/25/22 10:03 Dose: Not Given Documented By: RB Polyethylene Glycol (Polyethylene Glycol 3350 17 Gm Powd.Pack) 17 gm PO DAILY PRN PRN Reason: Constipation Sennosides (Sennosides 8.6 Mg Tablet) 8.6 mg PO BID PRN PRN Reason: Constipation Temazepam (Temazepam 15 Mg Capsule) 30 mg PO DAILY PRN PRN Reason: Sleep Discontinued Medications Aspirin (Aspirin 81 Mg Chew Tab) 324 mg PO NOW ONE Stop: 12/25/22 06:57 Last Admin: 12/25/22 08:00 Dose: 324 mg Documented By: PAULINE Labetalol HCl (Labetalol 20 Mg/4 Ml Syringe) 10 mg IV NOW ONE; Protocol Stop: 12/25/22 08:50 Last Admin: 12/25/22 08:55 Dose: 5 mg Documented By: KWAN Lorazepam (Lorazepam 2 Mg/Ml Inj) 1 mg IV NOW ONE Stop: 12/25/22 09:18 Last Admin: 12/25/22 09:37 Dose: 1 mg Documented By: RB Vital Signs Vital signs: Vital Signs - 8 hr 12/25/22 06:58 12/25/22 06:53 12/25/22 06:53 Temperature 98.8 F Pulse Rate 95 H 98 H Respiratory Rate 15 Blood Pressure 236/108 H 236/108 H Pulse Oximetry 98 96 Oxygen Delivery Method Room Air 12/25/22 06:55 12/25/22 07:00 12/25/22 07:00 Temperature Pulse Rate 94 H 92 H Respiratory Rate Blood Pressure 231/102 H Pulse Oximetry 97 97 Oxygen Delivery Method 12/25/22 07:05 12/25/22 07:10 12/25/22 08:55 Temperature Pulse Rate 89 89 85 Respiratory Rate 20 12 Blood Pressure 215/99 H Pulse Oximetry 97 98 Oxygen Delivery Method 12/25/22 07:49 12/25/22 07:49 12/25/22 07:50 Temperature Pulse Rate 87 91 H Respiratory Rate 15 28 H Blood Pressure 198/90 H Pulse Oximetry 98 97 Oxygen Delivery Method 12/25/22 07:55 12/25/22 08:00 12/25/22 08:00 Temperature Pulse Rate 88 86 Respiratory Rate 20 20 Blood Pressure 194/91 H Pulse Oximetry 96 96 Oxygen Delivery Method 12/25/22 08:05 12/25/22 08:10 12/25/22 08:15 Temperature Pulse Rate 88 88 Respiratory Rate 13 15 Blood Pressure 193/91 H Pulse Oximetry 96 95 Oxygen Delivery Method 12/25/22 08:15 12/25/22 08:20 12/25/22 08:25 Temperature Pulse Rate 86 90 97 H Respiratory Rate 20 Blood Pressure Pulse Oximetry 95 96 93 Oxygen Delivery Method 12/25/22 08:30 12/25/22 08:31 12/25/22 08:31 Temperature Pulse Rate 88 87 Respiratory Rate Blood Pressure 223/101 H Pulse Oximetry 96 97 Oxygen Delivery Method 12/25/22 08:35 12/25/22 08:40 12/25/22 08:45 Temperature Pulse Rate 87 87 Respiratory Rate Blood Pressure 215/99 H Pulse Oximetry 98 98 Oxygen Delivery Method 12/25/22 08:45 12/25/22 08:50 12/25/22 08:55 Temperature Pulse Rate 88 90 86 Respiratory Rate Blood Pressure Pulse Oximetry 98 96 96 Oxygen Delivery Method MDM - Neuro Symptoms/Deficit Lab Data 12/25/22 06:55 12/25/22 06:55 Labs: Lab Results 12/25/22 12/25/22 12/25/22 Range/Units 06:55 06:55 06:55 WBC 12.4 H (4.5-11.0) X10^3/uL RBC 5.26 (4.5-5.9) X10^6/uL Hgb 15.6 (13.5-17.5) g/dL Hct 44.6 (41-53) % MCV 84.8 (80-100) fL MCH 29.7 (26-34) PG MCHC 35.0 (30-36) % RDW 13.2 (11.6-14.8) % Plt Count 252 (150-400) X10^3/uL Neut % (Auto) 80.8 H (50-75) % Lymph % (Auto) 10.9 L (25-40) % Gregory % (Auto) 7.6 (3-14) % Eos % (Auto) 0.2 L (2-4) % Baso % (Auto) 0.5 (0-2) % Neut # (Auto) 84006 H (7683-2366) /uL Lymph # (Auto) 1400 (2832-7305) /uL Gregory # (Auto) 900 (0-900) /uL Eos # (Auto) 0 (0-450) /uL Baso # (Auto) 100 (0-100) /uL PT 11.6 (10.1-12.7) SECONDS INR 1.0 (0.9-1.3) APTT 29 (26-36) SECONDS Sodium 133 L (137-145) mmol/L Potassium 3.7 (3.4-5.1) mmol/L Chloride 96 L (98-107) mmol/L Carbon Dioxide 29 (22-32) mmol/L BUN 23 H (9-20) mg/dL Creatinine 0.87 (0.66-1.25) mg/dL Estimated GFR > 60 (>60) mL/min BUN/Creatinine Ratio 26.4 H (6-22) Glucose 209 H (80-110) mg/dL Calcium 9.8 (8.4-10.2) mg/dL Magnesium 2.0 (1.6-2.3) mg/dL Total Bilirubin 0.6 (0.2-1.3) mg/dL AST 27 (17-59) IU/L ALT 35 (<50) IU/L Alkaline Phosphatase 121 (38-126) U/L Total Creatine Kinase 130 (55-170) U/L CK-MB (CK-2) TNP CK-MB (CK-2) Rel Index TNP Troponin I < 0.012 (0.01-0.034) ng/mL Total Protein 7.7 (6.3-8.2) g/dL Albumin 4.4 (3.5-5.0) g/dL Globulin 3.3 (1.7-4.1) g/dL Albumin/Globulin Ratio 1.3 (1.0-2.8) Triglycerides (35-150) mg/dL Cholesterol (140-199) mg/dL LDL Cholesterol, Calc (<100) mg/dL HDL Cholesterol (40-60) mg/dL Lipase 41 (23-300) U/L TSH (0.47-4.68) uIU/mL 12/25/22 12/25/22 Range/Units 06:55 06:55 WBC (4.5-11.0) X10^3/uL RBC (4.5-5.9) X10^6/uL Hgb (13.5-17.5) g/dL Hct (41-53) % MCV (80-100) fL MCH (26-34) PG MCHC (30-36) % RDW (11.6-14.8) % Plt Count (150-400) X10^3/uL Neut % (Auto) (50-75) % Lymph % (Auto) (25-40) % Gregory % (Auto) (3-14) % Eos % (Auto) (2-4) % Baso % (Auto) (0-2) % Neut # (Auto) (1452-5302) /uL Lymph # (Auto) (8023-2505) /uL Gregory # (Auto) (0-900) /uL Eos # (Auto) (0-450) /uL Baso # (Auto) (0-100) /uL PT (10.1-12.7) SECONDS INR (0.9-1.3) APTT (26-36) SECONDS Sodium (137-145) mmol/L Potassium (3.4-5.1) mmol/L Chloride (98-107) mmol/L Carbon Dioxide (22-32) mmol/L BUN (9-20) mg/dL Creatinine (0.66-1.25) mg/dL Estimated GFR (>60) mL/min BUN/Creatinine Ratio (6-22) Glucose (80-110) mg/dL Calcium (8.4-10.2) mg/dL Magnesium (1.6-2.3) mg/dL Total Bilirubin (0.2-1.3) mg/dL AST (17-59) IU/L ALT (<50) IU/L Alkaline Phosphatase (38-126) U/L Total Creatine Kinase (55-170) U/L CK-MB (CK-2) CK-MB (CK-2) Rel Index Troponin I (0.01-0.034) ng/mL Total Protein (6.3-8.2) g/dL Albumin (3.5-5.0) g/dL Globulin (1.7-4.1) g/dL Albumin/Globulin Ratio (1.0-2.8) Triglycerides 121 (35-150) mg/dL Cholesterol 170 (140-199) mg/dL LDL Cholesterol, Calc 75 (<100) mg/dL HDL Cholesterol 71 H (40-60) mg/dL Lipase (23-300) U/L TSH 1.39 (0.47-4.68) uIU/mL Urine Dip Bedside Urine Glucose 1000 mg/dl Bedside Urine Bilirubin - Negative Bedside Urine Ketone - Negative Urine Specific Mage[place] 1.005 Bedside Urine Occult Blood - Negative Bedside Urine pH 6.5 Bedside Urine Protein - Negative Bedside Urine Urobilinogen - Negative Bedside Urine Nitrite - Negative Bedside Urine Leukocytes - Negative Esterase Imaging Data Chest x-ray: Radiologist's Impression: PROCEDURE:? XR CHEST 1V ? INDICATIONS:? chest pain ? TECHNIQUE:? One view of the chest was acquired.? ? COMPARISON:? [facility], , XR CHEST 1V, 04/04/2022, 12:42. ? FINDINGS:? ? Surgical changes and devices:? None.? ? Lungs and pleura:? Lungs are clear.? No pleural effusions or pneumothorax.? ? Mediastinum:? Mediastinal contours appear normal.? Heart size is normal.? ? Bones and chest wall:? No suspicious bony lesions.? Overlying soft tissues appear unremarkable.? ? IMPRESSION:? No acute cardiopulmonary abnormality. ? ? ? Dictated by: Chandrakant Badillo M.D. on 12/25/2022 at 7:39 ?? CT scan - head: Radiologist's Impression: PROCEDURE:? CT HEAD/BRAIN WO CON ? INDICATIONS:? headache with confusion ? TECHNIQUE:? Noncontrast 4.5 mm thick angled axial sections acquired from the foramen magnum to the vertex, with coronal and sagittal reformats.? For radiation dose reduction, the following was used:? automated exposure control, adjustment of mA and/or kV according to patient size.? ? COMPARISON:? None. ? FINDINGS:? Image quality:? Excellent.? ? CSF spaces:? Basal cisterns are patent.? No extra-axial fluid collections.? The ventricles are symmetric in size and shape.? ? Brain:? No intracranial bleeds or masses.? There is cerebral volume loss for age, with resultant ventricular and sulcal prominence.? There are periventricular and deep white matter chronic small vessel ischemic changes.? There is intracranial internal carotid artery atherosclerosis.? ? Skull and face:? Calvarium and visualized facial bones appear intact, without suspicious lesions.? ? Sinuses:? Visualized sinuses and mastoids are clear.? ? IMPRESSION:? 1. CT head without acute intracranial abnormalities or acute calvarial fractures. ? 2. Age-related senescent changes and sequela of chronic small vessel ischemic disease. ? If there is persistent or high clinical suspicion for acute cerebrovascular ischemia/stroke, more sensitive evaluation with brain MRI can be considered.? ? Findings were discussed with Dr. Whittington at 0740hrs. ? ? ? Dictated by: Jet Cavazos M.D. on 12/25/2022 at 7:38 ? ? CTA - brain/neck: Radiologist's Impression: PROCEDURE:? CT ANGIO HEAD AND NECK ? INDICATIONS:? Headache with confusion ? TECHNIQUE:? ? After the administration of intravenous contrast, 1 mm thick sections acquired from the aortic arch through the [place].? Post-contrast 4.5 mm thick sections then re-acquired from the foramen magnum to the vertex.? 3-dimensional [id number]-[id number] (MIP) and/or volume rendering reformats were acquired of the central intracranial vasculature and neck separately. For radiation dose reduction, the following was used:? automated exposure control, adjustment of mA and/or kV according to patient size.? ? COMPARISON:? [facility], CT, CT HEAD/BRAIN WO CON, 12/25/2022, 7:29. ? FINDINGS: ? Image quality:? Excellent.? ? BRAIN:? CSF spaces:? Ventricles are normal in size and shape.? Basal cisterns are patent.? No extra-axial fluid collections.? ? ? Brain:? No midline shift.? No intracranial bleeds or masses.? Ryder-white matter interface appears intact.? No areas of abnormal enhancement identified.? ? Skull and face:? Calvarium and facial bones appear intact, without suspicious lesions.? Orbits appear normal.? ? ? Sinuses:? Sinuses and mastoids are clear.? ? HEAD CT ANGIOGRAPHY:? Anterior circulation:? Scattered atherosclerotic calcifications of the intracranial segments of the internal carotid arteries.? Intracranial internal carotid arteries appear patent without high-grade stenosis. There is flow/opacification within the paired anterior cerebral arteries.? There is opacification within the middle cerebral arteries.? The anterior communicating artery is seen.? No aneurysms are seen. No occlus ion.? ? Posterior circulation:? ? Visualized portions of the vertebral arteries are patent and join to form a normal appearing basilar artery.? No evidence for high-grade stenosis. No occlusions. There is opacification of the posterior cerebral arteries.? No aneurysms are seen.? ? NECK CT ANGIOGRAPHY:? Carotid system:? The great vessels demonstrate a conventional anatomy as they arise from the aortic arch.? Atherosclerotic calcifications noted within the aortic arch.? The origins of the common carotid arteries appear patent. The common carotid arteries appear patent throughout their visualized courses without high grade stenosis.? Atherosclerotic calcifications noted at the carotid bifurcations bilaterally.? The bifurcation regions are both patent without high grade stenosis.? ? The internal carotid arteries demonstrate normal calibers and courses.? ? Posterior circulation:? Mild atherosclerotic calcifications at the origins of the vertebral arteries.? The origins of the vertebral arteries both appear patent without hemodynamically significant stenosis.? The more superior extracranial portions of both vertebral arteries also demonstrate normal courses and calibers.? They join to form a normal appearing basilar artery. ? ? ? Soft tissues:? Visualized neck soft tissues demonstrate no suspicious abnormalities.? ? Bones:? No suspicious bony lesions.? Severe multilevel cervical spondylosis with disc space loss, degenerative endplate changes, and prominent endplate osteophyte formation.? Findings are most severe at C3-4, C5-6, C6-7, and C7-T1.? Straightening of cervical lordosis.? Minimal retrolisthesis of C3 on C4.? Mild anterolisthesis of C7 on T1.? Mild spinal canal stenosis at C3-4, C5-6, and C6-7 with variable degrees of bilateral bony neural foraminal stenosis.? No severe spinal canal stenosis visualized.? No acute compression fractures of the vertebral bodies.? ? ? IMPRESSION:? ? 1. Negative CT angiogram of the intracranial arterial vasculature as well as the neck arterial vasculature.? Scattered atherosclerotic calcifications.? No high-grade stenosis visualized. ? 2. Severe multilevel cervical spondylosis as described above. ? If there is persistent clinical concern for intracranial pathology, consider further evaluation with brain MRI ? Any quantitative measurements of stenosis were performed using NASCET criteria.? ? ? Dictated by: Jet Cavazos M.D. on 12/25/2022 at 7:46 ? ECG Data Interpretation: Sinus rhythm rate 90 NV interval 200 QRS 152 QTC 489 right bundle-branch block noted similar to previous EKG no ST changes similar to previous EKGs MDM Narrative Medical decision making narrative: Patient is 72-year-old male concern for CVA versus hypertensive emergency/PRES encephalopathy, NIH is 2 secondary to confusion. He is no focal deficits or large vessel occlusion on exam or CT angio. No evidence of end-organ damage. He was given 10 mg of labetalol which did help with his blood pressure. Patient is out of the window for tPA no evidence of large vessel occlusion no indication or transfer at this time. Labs: Leukocytosis 12.4, sodium 133, glucose 209 Imaging: Noncontrast head CT, CT head and neck angio, no intracranial hemorrhage no large vessel occlusion, chest x-ray Dr. Croft updated on patient's symptoms test results agrees with admission. Discharge Plan Departure Patient Disposition: Admitted As Inpatient Clinical Impression: CVA (cerebral vascular accident), Hypertension Admit Date/Time: 12/25/22 08:55 Admit Provider: Jeffery Croft
[2022-12-25 08:05] LABS: Troponin I < 0.012 ng/mL (0.01-0.034)
[2022-12-25] MEDS: LABETALOL 20 MG/4 ML SYRINGE 10 MG IV ×2 (08:55→09:37)
--- NOTE | 2022-12-25 09:00 | DI.ECHO.S_ITS ---
[facility] +---------+ : : [address] [place] : : : : [id number] : : : : Phone: [phone]+ Echocardiogram Report + + :Name: KYAW CRUM Study Date: 12/25/2022 Height: 66 in : :[facility] ReadingLocation: Weight: 185 lb : : Gender: Male BSA: 1.9 m2 : :: 1950 Age: 72 yrs BP: 137/66 mmHg: :Reason For Study: Stroke : :Ordering Physician: Guerda, : :Paulo Performed By: Kristine Stout : :Referring: PAULO MONTES A : + + Interpretation Summary Moderate concentric left ventricular hypertrophy with ejection fraction 50- 55%. Mild aortic valve sclerosis. Mild aortic regurgitation. Injection of contrast documented no interatrial shunt. Procedure: A two-dimensional transthoracic echocardiogram with color flow and Doppler was performed. The study quality was technically adequate. Comparison is made with the echocardiogram of 10/25/2020. A saline contrast injection was performed to assess for cardiac shunting. The patient was in normal sinus rhythm during the exam. Left Ventricle: The left ventricle is normal in size. There is moderate concentric left ventricular hypertrophy. The ejection fraction is estimated to be 50-55%. There are no focal wall motion abnormalities. Right Ventricle: The right ventricle is normal in size and function. Atria: The left atrial size is normal. Right atrial size is normal. Injection of contrast documented no interatrial shunt. Mitral Valve: The mitral valve leaflets appear borderline thickened, but open well. There is no mitral valve stenosis. There is trace mitral regurgitation. Aortic Valve: The aortic valve is trileaflet. There is mild aortic valve sclerosis. There is no aortic valve stenosis. There is mild aortic regurgitation. Tricuspid Valve: The tricuspid valve is normal. There is no tricuspid stenosis. There is trace tricuspid regurgitation. Pulmonary artery pressures cannot be estimated because of the lack of a measurable TR jet velocity. Pulmonic Valve: The pulmonic valve leaflets are thin and pliable; valve motion is normal. There is no pulmonic valvular stenosis. There is trace pulmonic regurgitation. Great Vessels: The aortic root is normal size. The ascending aorta is normal in size. The pulmonary artery is normal size. The IVC is of normal diameter and collapses greater than 50% with a sniff. This suggests a low right atrial pressure of 3 mm Hg. Pericardium/ Pleura There is a trivial pericardial effusion noted. There is no pleural effusion. MMode/2D Measurements & Calculations LVIDd: 4.7 cm LVOT diam: 1.9 cm LVIDs: 3.5 cm Ao root diam: 3.4 cm FS: 25.5 % asc Aorta Diam: 3.4 cm IVSd: 1.5 cm LVPWd: 1.6 cm LV lopez. diameter/BSA (cm/m^2): 2.4 LV sys. diameter/BSA (cm/m^2): 1.8 LA A2 area: 15.9 cm2 RA long axis: 4.9 cm LA A4 area: 13.9 cm2 RA area: 11.7 cm2 LA length (vol): 5.2 cm RA vol: 24.0 ml LA vol: 36.0 ml RA : 12.4 ml/m2 LA vol index: 18.6 ml/m2 RVD1 (basal): 3.1 cm LVLs ap4: 6.8 cm LVLd ap2: 8.5 cm TAPSE_phl: 2.5 cm LVLs ap2: 6.8 cm Doppler Measurements & Calculations Ao V2 max: 181.0 cm/sec LVOT Max Landon: 92.7 cm/sec Ao V2 mean: 129.0 cm/sec LV V1 max P.4 mmHg Ao max P.0 mmHg LV V1 VTI: 18.8 cm Ao mean P.0 mmHg MONIKA(I,D): 1.3 cm2 Ao V2 VTI: 40.1 cm MONIKA(V,D): 1.5 cm2 sev ratio: 0.47 MONIKA indexed to BSA (cm^2/m^2): 0.69 Med Peak E' Landon: 4.3 cm/sec PA V2 max: 115.0 cm/sec Lat Peak E' Landon: 6.9 cm/sec PA V2 mean: 81.6 cm/sec PA mean P.0 mmHg PA pr(Accel): 20.9 mmHg SV(LVOT): 53.3 ml AV VR_phl: 0.51 MONIKA(VTI)/BSA_phl: 0.69 Electronically signed by: Yinka Lepe on Reading Physician:12/25/2022 05:37 PM
[2022-12-25 09:28] LABS: Cholesterol 170 mg/dL (140-199); HDL Cholesterol 71 mg/dL (40-60); LDL Cholesterol Calculated 75 mg/dL (<100); Triglycerides 121 mg/dL (35-150)
[2022-12-25] MEDS: LORazepam 2 MG/ML INJ 1 MG IV (09:37)
[2022-12-25] MEDS: ENOXAPARIN 40 MG/0.4 ML SYRINGE SUBCUT (09:37)
[2022-12-25 09:58] LABS: TSH w/ Reflex to FT4 1.39 uIU/mL (0.47-4.68)
--- NOTE | 2022-12-25 10:59 | DI.MRI.S_ITS ---
PROCEDURE: MR HEAD/BRAIN WO CON INDICATIONS: cva TECHNIQUE: Non-contrast axial T1 spin echo, axial T2 fast spin echo, sagittal and axial FLAIR, coronal T2 fast spin echo, axial gradient echo, axial diffusion and ADC through the brain. COMPARISON: None. FINDINGS: Image quality: Excellent. CSF spaces: Ventricles appear symmetric in size and shape. Basal cisterns are patent. No extra-axial fluid collections. Brain: No intracranial bleeds or mass effects. There is an incidental right parietal meningioma measuring 9 x 16 mm without mass effect. There is cerebral volume loss for age. There are mild periventricular and deep white matter chronic small vessel ischemic changes. Brainstem appears normal. There are multifocal diffusion-weighted signal abnormalities with restricted water diffusion present in the left occipital lobe consistent with focal areas left PULMONOLOGIST distribution infarct. There is associated minimal involvement of the posterior temporal lobe cortex on the left. There is associated cytotoxic edema noted on the T2 weighted imaging sequences. There is a small old subcortical deep white matter infarct extending to the hernandes-white junction region in the left parietal lobe. Normal intravascular flow voids are present. Skull and face: Calvarial bone marrow is normal in signal. Orbits are normal. Sinuses: Sinuses and mastoids are clear. IMPRESSION: 1. Acute left PULMONOLOGIST distribution infarct with associated early cytotoxic edema. 2. Age-related volume loss and mild small vessel ischemic change, old focal small left parietal deep white matter/subcortical infarct. 3. Incidental small right parietal meningioma Dictated by: Jayant Martin M.D. on 12/25/2022 at 11:12 Approved by: Jayant Martin M.D. on 12/25/2022 at 11:19
[2022-12-25] MEDS: INSULIN LISPRO 100 UNIT/ML 3ML VIAL SUBCUT (11:56)
[2022-12-25] MEDS: CLOPIDOGREL 75 MG TABLET PO (12:29)
--- NOTE | 2022-12-25 14:07 | P.HP_ITS ---
History of Present Illness History of Present Illness Date Patient Seen: 12/25/22 Time Patient Seen: 13:00 Chief complaint: migraine T-1/confused/memory issues Narrative: Mauri Petersen is a 72yo M with PMH of HTN, HLD, DM2, CAD, migraines followed by Dr. Nicole neuro, BPH, iron def anemia, OA, GERD and left eye strabismus who presents with 2 days of difficulty forming thoughts, confusion, vision changes, and headache. Patient is unable to provide much history due to mental status so obtained from chart. He does think that his symptoms began 2 days ago. He waited to come to the ED because he thought it was all migraine- related. He currently has a slight left-sided headache. No visual changes, facial droop, weakness in arms or legs, dysarthria or dysphagia. He has trouble forming thoughts and speaks with lots of pauses. Says he is frustrated because can't come up with what to say. In the ED patient had an NIH of 2. CT and CTA head were negative. 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 BP was 236/108 and given IV labetalol. [facility] Medical History Allergic rhinitis Anemia (~2004) Asthma BPH w urinary obs/LUTS Cataracts, bilateral (~2017) Cervical spine disease (~1990) Chicken pox Chronic back pain (~2004) Colon polyps (~1999) Coronary artery disease Diabetes (~2017) Disease of spine (~1990) Essential hypertension GERD (gastroesophageal reflux disease) (~1999) GERD without esophagitis History of colonic polyps HTN (hypertension) (~1996) Hyperlipidemia (~1996) Insomnia secondary to chronic pain Iron deficiency anemia Low testosterone (~2010) Measles Migraines (~1979) Mixed hyperlipidemia Mumps Osteoarthritis (~2008) Osteopenia (~1999) Type 2 diabetes mellitus with cardiac complication Surgical History Anesthesia H/O heart artery stent Family History Father Cancer Hypertension Stroke Mother Cancer Hypertension Vascular dementia Grandfather History of heart disease Grandfather Cancer 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 details: (Reyna, 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, 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 Smoking Status: Never smoker alcohol intake: current Meds Home Medications and Allergies Home Medications Medication Instructions Recorded Confirmed Type aspirin 81 mg tablet,delayed 81 mg PO DAILY 12/14/17 12/25/22 History release felodipine 5 mg tablet,extended 10 mg PO DAILY 01/13/22 12/25/22 History release 24 hr atorvastatin 40 mg tablet 40 mg PO DAILY 04/19/22 12/25/22 History multivitamin 1 tab PO DAILY 04/19/22 12/25/22 History blood sugar diagnostic (Contour #100 ea 07/11/22 10/23/22 Rx Next Test Strips) metoprolol succinate 50 mg 50 mg PO DAILY #90 tabs 09/14/22 12/25/22 Rx tablet,extended release 24 hr ferrous gluconate 324 mg (37.5 mg 324 mg PO DAILY 10/23/22 12/25/22 History iron) tablet losartan 50 mg tablet 50 mg PO DAILY #90 tabs 10/23/22 12/25/22 Rx finasteride 5 mg tablet 5 mg PO DAILY #90 tabs 11/13/22 12/25/22 Rx metformin 500 mg tablet 500 mg PO BID #180 tabs 11/13/22 12/25/22 Rx amoxicillin 500 mg capsule 500 mg PO Q8H 12/25/22 12/25/22 History empagliflozin 25 mg tablet 25 mg PO DAILY 12/25/22 12/25/22 History (Jardiance) nortriptyline 10 mg capsule 20 mg PO BEDTIME 12/25/22 12/25/22 History Allergies Allergy/AdvReac Type Severity Reaction Status Date / Time lisinopril Allergy Severe angioedema Verified 10/23/22 07:39 iron dextran complex Allergy Mild dextran Verified 10/23/22 07:39 reaction Review of Systems Review of Systems Narrative: All other systems reviewed with the patient and are negative unless otherwise stated. Exam Vital Signs (past 8 hours): - 12/25/22 06:58 12/25/22 06:53 12/25/22 06:53 Temperature 98.8 F Pulse Rate 95 H 98 H Respiratory Rate 15 Blood Pressure 236/108 H 236/108 H Pulse Oximetry 98 96 Oxygen Delivery Method Room Air Oxygen Flow Rate 12/25/22 06:55 12/25/22 07:00 12/25/22 07:00 Temperature Pulse Rate 94 H 92 H Respiratory Rate Blood Pressure 231/102 H Pulse Oximetry 97 97 Oxygen Delivery Method Oxygen Flow Rate 12/25/22 07:05 12/25/22 07:10 12/25/22 08:55 Temperature Pulse Rate 89 89 85 Respiratory Rate 20 12 Blood Pressure 215/99 H Pulse Oximetry 97 98 Oxygen Delivery Method Oxygen Flow Rate 12/25/22 07:49 12/25/22 07:49 12/25/22 07:50 Temperature Pulse Rate 87 91 H Respiratory Rate 15 28 H Blood Pressure 198/90 H Pulse Oximetry 98 97 Oxygen Delivery Method Oxygen Flow Rate 12/25/22 07:55 12/25/22 08:00 12/25/22 08:00 Temperature Pulse Rate 88 86 Respiratory Rate 20 20 Blood Pressure 194/91 H Pulse Oximetry 96 96 Oxygen Delivery Method Oxygen Flow Rate 12/25/22 08:05 12/25/22 08:10 12/25/22 08:15 Temperature Pulse Rate 88 88 Respiratory Rate 13 15 Blood Pressure 193/91 H Pulse Oximetry 96 95 Oxygen Delivery Method Oxygen Flow Rate 12/25/22 08:15 12/25/22 08:20 12/25/22 08:25 Temperature Pulse Rate 86 90 97 H Respiratory Rate 20 Blood Pressure Pulse Oximetry 95 96 93 Oxygen Delivery Method Oxygen Flow Rate 12/25/22 08:30 12/25/22 08:31 12/25/22 08:31 Temperature Pulse Rate 88 87 Respiratory Rate Blood Pressure 223/101 H Pulse Oximetry 96 97 Oxygen Delivery Method Oxygen Flow Rate 12/25/22 08:35 12/25/22 08:40 12/25/22 08:45 Temperature Pulse Rate 87 87 Respiratory Rate Blood Pressure 215/99 H Pulse Oximetry 98 98 Oxygen Delivery Method Oxygen Flow Rate 12/25/22 08:45 12/25/22 08:50 12/25/22 08:55 Temperature Pulse Rate 88 90 86 Respiratory Rate Blood Pressure Pulse Oximetry 98 96 96 Oxygen Delivery Method Oxygen Flow Rate 12/25/22 09:33 12/25/22 09:37 12/25/22 09:00 Temperature Pulse Rate 82 86 Respiratory Rate Blood Pressure 207/95 H 215/99 H 215/103 H Pulse Oximetry Oxygen Delivery Method Oxygen Flow Rate 12/25/22 09:00 12/25/22 09:05 12/25/22 09:10 Temperature Pulse Rate 87 91 H Respiratory Rate Blood Pressure 208/96 H Pulse Oximetry 97 94 Oxygen Delivery Method Oxygen Flow Rate 12/25/22 09:10 12/25/22 09:15 12/25/22 09:20 Temperature Pulse Rate 90 95 H Respiratory Rate Blood Pressure 226/108 H Pulse Oximetry 96 96 Oxygen Delivery Method Oxygen Flow Rate 12/25/22 09:20 12/25/22 09:25 12/25/22 09:30 Temperature Pulse Rate 93 H 90 Respiratory Rate Blood Pressure 207/95 H Pulse Oximetry 97 97 Oxygen Delivery Method Oxygen Flow Rate 12/25/22 09:30 12/25/22 09:35 12/25/22 09:40 Temperature Pulse Rate 91 H 90 Respiratory Rate Blood Pressure 214/93 H Pulse Oximetry 98 97 Oxygen Delivery Method Oxygen Flow Rate 12/25/22 09:40 12/25/22 10:07 12/25/22 09:45 Temperature Pulse Rate 87 80 86 Respiratory Rate Blood Pressure 185/88 H Pulse Oximetry 96 96 Oxygen Delivery Method Oxygen Flow Rate 12/25/22 09:50 12/25/22 09:50 12/25/22 09:54 Temperature Pulse Rate 84 83 Respiratory Rate Blood Pressure 195/80 H Pulse Oximetry 97 97 Oxygen Delivery Method Oxygen Flow Rate 12/25/22 09:54 12/25/22 09:55 12/25/22 10:00 Temperature Pulse Rate 83 Respiratory Rate Blood Pressure 188/90 H 185/88 H Pulse Oximetry 96 Oxygen Delivery Method Oxygen Flow Rate 12/25/22 10:00 12/25/22 10:05 12/25/22 10:10 Temperature Pulse Rate 82 84 Respiratory Rate Blood Pressure 189/88 H Pulse Oximetry 94 94 Oxygen Delivery Method Oxygen Flow Rate 12/25/22 10:10 12/25/22 10:15 12/25/22 10:50 Temperature 98.2 F Pulse Rate 83 81 82 Respiratory Rate 16 Blood Pressure 176/80 H Pulse Oximetry 95 93 98 Oxygen Delivery Method Oxygen Flow Rate 12/25/22 11:57 12/25/22 12:33 Temperature 97.7 F Pulse Rate 86 Respiratory Rate 16 Blood Pressure 137/66 Pulse Oximetry 96 Oxygen Delivery Method Room Air Oxygen Flow Rate 0 Oxygen Delivery Method Room Air Oxygen Flow Rate 0 Narrative Exam Narrative: GEN: appears frustrated HEENT: moist mucous membranes, left eye lateral strabismus NECK: trachea midline, no JVD CV: regular rate and rhythm, no murmurs PULM: clear bilaterally ABD: soft, nontender, nondistended, no organomegaly EXT: warm and well perfused with no edema NEURO: difficulty with thought production and memory recall, no focal deficits Objective Labs 12/25/22 06:55 12/25/22 06:55 Labs: Laboratory Results - last 24 hr 12/25/22 12/25/22 12/25/22 06:55 06:55 06:55 WBC 12.4 H RBC 5.26 Hgb 15.6 Hct 44.6 MCV 84.8 MCH 29.7 MCHC 35.0 RDW 13.2 Plt Count 252 Neut % (Auto) 80.8 H Lymph % (Auto) 10.9 L [place] % (Auto) 7.6 Eos % (Auto) 0.2 L Baso % (Auto) 0.5 Neut # (Auto) 34037 H Lymph # (Auto) 1400 [place] # (Auto) 900 Eos # (Auto) 0 Baso # (Auto) 100 PT 11.6 INR 1.0 APTT 29 Sodium 133 L Potassium 3.7 Chloride 96 L Carbon Dioxide 29 BUN 23 H Creatinine 0.87 Estimated GFR > 60 BUN/Creatinine Ratio 26.4 H Glucose 209 H Calcium 9.8 Magnesium 2.0 Total Bilirubin 0.6 AST 27 ALT 35 Alkaline Phosphatase 121 Total Creatine Kinase 130 CK-MB (CK-2) TNP CK-MB (CK-2) Rel Index TNP Troponin I < 0.012 Total Protein 7.7 Albumin 4.4 Globulin 3.3 Albumin/Globulin Ratio 1.3 Triglycerides Cholesterol LDL Cholesterol, Calc HDL Cholesterol Lipase 41 TSH 12/25/22 12/25/22 06:55 06:55 WBC RBC Hgb Hct MCV MCH MCHC RDW Plt Count Neut % (Auto) Lymph % (Auto) [place] % (Auto) Eos % (Auto) Baso % (Auto) Neut # (Auto) Lymph # (Auto) [place] # (Auto) Eos # (Auto) Baso # (Auto) PT INR APTT Sodium Potassium Chloride Carbon Dioxide BUN Creatinine Estimated GFR BUN/Creatinine Ratio Glucose Calcium Magnesium Total Bilirubin AST ALT Alkaline Phosphatase Total Creatine Kinase CK-MB (CK-2) CK-MB (CK-2) Rel Index Troponin I Total Protein Albumin Globulin Albumin/Globulin Ratio Triglycerides 121 Cholesterol 170 LDL Cholesterol, Calc 75 HDL Cholesterol 71 H Lipase TSH 1.39 Assessment & Plan Assessment & Plan narrative: # 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 -presented with 2 days of confusion, difficulty with forming thoughts, visual changes and headache -CT/CTA head negative -MRI confirmed acute multifocal left 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 Nicole, neuro at [facility] -continue home nortriptyline -hold home Nurtec Code status is full code. DVT prophylaxis with Lovenox. Proxy is . I have reviewed home meds and used all available resources to reconcile the home meds. This patient will be admitted as inpatient and will require greater than 2 midnights of hospital time to treat acute stroke.
[2022-12-25] MEDS: ACETAMINOPHEN 325 MG TABLET 650 MG PO ×2 (14:15→21:45)
--- NOTE | 2022-12-25 15:02 | OT.IP.EVAL ---
Past Medical History (Last Reviewed 12/25/22 @ 08:05 by Ashley Whittington DO) Allergic rhinitis Anemia (~2004) Asthma BPH w urinary obs/LUTS Cataracts, bilateral (~2017) Cervical spine disease (~1990) Chicken pox Chronic back pain (~2004) Colon polyps (~1999) Coronary artery disease Diabetes (~2017) Disease of spine (~1990) Essential hypertension GERD (gastroesophageal reflux disease) (~1999) GERD without esophagitis History of colonic polyps HTN (hypertension) (~1996) Hyperlipidemia (~1996) Insomnia secondary to chronic pain Iron deficiency anemia Low testosterone (~2010) Measles Migraines (~1979) Mixed hyperlipidemia Mumps Osteoarthritis (~2008) Osteopenia (~1999) Type 2 diabetes mellitus with cardiac complication Surgical History (Last Reviewed 12/25/22 @ 08:05 by Ashley Whittington DO) Anesthesia H/O heart artery stent Occupational Therapy Inpatient Evaluation/Re-Eval M1 PT/OT-IP Prior Functional Status Start: 12/25/22 13:22 Freq: NEEDED Status: Active Protocol: Document 12/25/22 15:18 CGR (Rec: 12/25/22 15:53 CGR [id number]) Medical Review Prior Functional Status Medical History Reviewed Yes Diet/Fluid Consistency Regular Communication Pt is confused, has trouble word-finding and unclear about PLOF. It does appear that he was I and living with and that he drove. Mobility and Gait Likely Ind at baseline without AD Activities of Daily Living and IADL's Likely Ind at baseline 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 Household Members spouse Living Arrangements House Number of Stairs To Enter/Railing? Pt cannot clearly state how many floors his house has. He states one and then he states three and then he states three to four. It is unclear if he has steps at the house. He cannot answer any home environment questions accurately regarding BR set-up . It appears that he did not have any DME at baseline. 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 OT Pain Assessment Pain When Pain Assessed At Rest Pain Present Pain Present Pain Reported Location head Scale Used did not rate Management Techniques Distraction,Modification of Treatment,Re-positioning M4 OT- IP ADL's Start: 12/25/22 15:18 Freq: Status: Active Protocol: Document 12/25/22 15:18 CGR (Rec: 12/25/22 15:53 CGR [id number]) OT [id number] Comments OT Self-Feeding Comments not meal time OT ADL-Grooming General Evaluation Grooming Ability Standby Assistance Areas Needing Assistance Face Washing Comments OT Grooming Comments standing at sink OT ADL-Oral Care General Eval Oral Care Ability Standby Assistance Areas of Assistance Brushing Teeth Comments Oral Care Comments standing at sink, needs assist finding tooth brush. OT ADL-Dressing General Eval Lower Body Dressing Ability Independent Areas Needing Assistance Socks Comments OT Dressing Comments seated EOB OT ADL-Toileting General Evaluation Toileting Ability Minimal Assistance Comments OT Toileting Comments Pt needed assist identifying where the toilet was. Pt then ambulated into the bathroom and then lifted the lid and positioned to urinate in the trash can. This food writer identified the toilet for the toilet to the patient and the pt stated oh oh yeah and then urinated in the toilet. OT ADL-Bathing Comments OT Bathing Comments not performed M5 OT- IP IADL's Start: 12/25/22 15:18 Freq: Status: Active Protocol: Document 12/25/22 15:18 CGR (Rec: 12/25/22 15:53 CGR [id number]) OT-Instrumental Activities of Daily Living Deficits IADL Deficits Identified Deficits Home Safety Awareness Awareness of Need for Assistance at Home Decreased Awareness Ability to Problem Solve Emergency Unable to Problem Solve Situations Medication Management Medication Management Comments concerns regarding pt's ability to perform Money Management Money Management Comments concerns regarding pt's ability to perform Meal Preparation Meal Preparation Comments concerns regarding pt's ability to perform Mortgage Loan Funder Mortgage Loan Funder Comments concerns regarding pt's ability to perform Driving Driving Comments concerns regarding pt's ability to perform M6 OT- IP Functional Cognition Start: 12/25/22 15:18 Freq: Status: Active Protocol: Document 12/25/22 15:18 CGR (Rec: 12/25/22 15:53 CGR [id number]) Cognitive Factors Limiting Selfcare Function Cognitive Ability Level of Alertness Alert,Confusional State Patient Orientation Name,Birthday,Situation Attention Span Ability Unable to Focus,Unable to Sustain Attention Ability to Follow Commands Able to Follow One Step Commands with Increased Time, Able to Follow One Step Commands with Repetition Cognitive Comments Cognitive Assessment Comments Will appreciate input from ST on pt's language ability vs pts cognitive deficit. OT- Vision and Hearing OT- Hearing Assessment OT- Hearing Assessment WFL OT- Vision Assessment Visual Acuity WFL Visual Attentiveness Impaired Occular Pursuits Impaired Horizontal Visual Convergence Impaired Diplopia Absent Vision Assessment Comments Difficult to identify deficit d/t pt's difficulty with following directions. Pt was able to cross midline to L with extra time/effort and without smooth pursuits. Significant strabismus to the L eye that pt states is baseline. M7 OT- IP Mobility and Balance Start: 12/25/22 15:18 Freq: Status: Active Protocol: Document 12/25/22 15:18 CGR (Rec: 12/25/22 15:53 CGR [id number]) OT- Bed Mobility Assessment Supine to Sit Supine to Sit Assist Independent Sit to Supine Sit to Supine Assist Independent Scooting Scooting to Edge of Bed Independent OT-Transfer Assessment Sit to and From Stand Sit to and from Stand Standby Assistance Transfers Transfer Ability Standby Assistance Technique Transfer Destination Bed Transfer Technique Stand Step Pivot Devices Transfer Assistive Devices Gait Belt Comments Mobility Comments Mobility around the room and in the vicente. OT- Gait Assessment Comments Gait Ability Comments see P.T. note OT- Balance Assessment Sitting Balance and Reactions Static Sitting Balance Ability Good Dynamic Sitting Balance Ability Good M8 OT- IP Objective Assessments Start: 12/25/22 15:18 Freq: Status: Active Protocol: Document 12/25/22 15:18 CGR (Rec: 12/25/22 15:53 CGR [id number]) OT Gross Range of Motion Upper Extremity Range of Motion Assessment Within Functional Limits OT Strength Upper Extremity Strength Assessment Within Functional Limits Comments Strength Comments grossly 4+/5 OT- Coordination Assessment Upper Extremity Finger to Nose Test Within Functional Limits Finger Tapping Test Within Functional Limits OT-Muscle Tone Assessment Muscle Tone WNL Yes OT Sensation Assessment Edema Edema Absent M9 OT- IP Assessment and Plan Start: 12/25/22 15:18 Freq: Status: Active Protocol: Document 12/25/22 15:18 CGR (Rec: 12/25/22 15:53 CGR [id number]) OT Summary Assessment and Plan Potential Rehabilitation Potential Excellent Analytic Complexity at Evaluation Moderate Summary OT Impairments Functional Cognition, Functional Mobility,Grooming, Dressing,Toileting,Bathing Progress Towards Goals Progressing Toward Goals Assessment Summary Pt presents as a moderate complexity evaluation s/p admit for confusion. 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 Pt exhibits word finding deficits , visual deficits, and cognitive deficits that are impacting his ability to care for himself and mobilize safely. Pt will benefit from continued Ot services. Recommend d/c to acute rehab. Goals Grooming Goal Independent Dressing Goal Independent Toileting Goal Independent Bathing Goal Independent Toilet Transfer Goal Independent Shower Transfer Goal Independent Days to Meet Goals 15 Frequency of Treatment Frequency Of Treatment Once a Day Treatment Plan OT Treatment Plan ADL Training,Functional Cognition Training,Functional Mobility,Vision Retraining, Patient/Family Education, Discharge Planning Other Treatment Recommendations and Next Further assess cog and vision. Treatment Focus Discharge Recommendations OT Discharge Recommendations Acute Rehab Transportation Needs at Discharge Private Vehicle
--- NOTE | 2022-12-25 15:18 | PT.IIE ---
Surgical History (Last Reviewed 12/25/22 @ 08:05 by Ashley Whittington DO) Anesthesia H/O heart artery stent Medical History (Last Reviewed 12/25/22 @ 08:05 by Ashley Whittington DO) Allergic rhinitis Anemia (~2004) Asthma BPH w urinary obs/LUTS Cataracts, bilateral (~2017) Cervical spine disease (~1990) Chicken pox Chronic back pain (~2004) Colon polyps (~1999) Coronary artery disease Diabetes (~2017) Disease of spine (~1990) Essential hypertension GERD (gastroesophageal reflux disease) (~1999) GERD without esophagitis History of colonic polyps HTN (hypertension) (~1996) Hyperlipidemia (~1996) Insomnia secondary to chronic pain Iron deficiency anemia Low testosterone (~2010) Measles Migraines (~1979) Mixed hyperlipidemia Mumps Osteoarthritis (~2008) Osteopenia (~1999) Type 2 diabetes mellitus with cardiac complication Physical Therapy Inpatient Evaluation/Re-Eval M1 PT/OT-IP Prior Functional Status Start: 12/25/22 13:22 Freq: NEEDED Status: Active Protocol: Document 12/25/22 14:27 MB (Rec: 12/25/22 15:18 MB [id number]) Medical Review Prior Functional Status Medical History Reviewed Yes Diet/Fluid Consistency Regular Communication Pt is confused, has trouble word-finding and unclear about PLOF. It does appear that he was I and living with and that he drove. Mobility and Gait Likely I Activities of Daily Living and IADL's Likely I 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 Household Members spouse Living Arrangements House Number of Stairs To Enter/Railing? Pt cannot clearly state how many floors his house has. He states one and then he states three and then he states three to four. It is unclear if he has steps at the house. He cannot answer any home environment questions accurately regarding BR set-up . It appears that he did not have any DME at baseline. Employment Status Retired M2 PT-IP Current Condition Start: 12/25/22 13:22 Freq: NEEDED Status: Active Protocol: Document 12/25/22 14:27 MB (Rec: 12/25/22 15:18 MB [id number]) Physical Therapy Current Condition Current Condition Evaluation Date 12/25/22 Treatment Diagnosis L INDUSTRIAL FURNACE FABRICATOR infarct Onset Date Acute, unknown date M3 PT-IP Subjective Start: 12/25/22 13:22 Freq: NEEDED Status: Active Protocol: Document 12/25/22 14:27 MB (Rec: 12/25/22 15:18 MB [id number]) Subjective Physical Therapy Visit Type Type Initial Evaluation Visit Start Time 14:27 Visit Stop Time 14:55 Total Visit Minutes 28 Number of WATER RESOURCE PROJECT MANAGER Visits 0 Physical Therapy Visit Comments Patient Comments It appears to be worse. Am I going to move forward? Pt with concerns about his presentation, trouble with word-finding. Patient Goals To get better Therapy Pain Assessment Pain When Pain Assessed At Rest Pain Present Pain Present Denied Pain M4 PT-IP Mobility and Gait Start: 12/25/22 13:22 Freq: NEEDED Status: Active Protocol: Document 12/25/22 14:27 MB (Rec: 12/25/22 15:18 MB [id number]) PT-Bed Mobility Assessment Rolling Level of Assist Independent Supine to Sit Supine to Sit Independent Scooting Scooting to Edge of Bed Independent PT-Transfer Assessment Sit to and From Stand Sit to and from Stand Standby Assistance,1 Person Assistance,Use of Upper Extremities Equipment Transfer Assistive Device Gait Belt Gait Assessment Gait Gait Assistance Required: Standby Assistance,Contact Guard Assist,1 Person Assist Able to Maintain Weight Bearing Status No During Gait Assistive Devices Assistive Device Gait Belt Orthotic/Prosthetic Devices or Brace: No Factors Limiting Gait Function Factors Limiting Gait Function Poor Balance,Poor Safety Awareness Comments Gait Comments Pt with poor ability to follow commands with modified FGA, poor visual tracking and PT must provide VCs several times before pt can follow for head turns, turning, backwards gait, changing gait speed, stairs and scanning for his room. Low visual tracking with all and he tends to have more imbalance to the right, almost running into [employer] computers in the hallway x3 and PT must shift him out of the way of the computer x2. He does not slow speed when close to colliding with objects but con't to walk forward. Stair Climbing Assessment Evaluation Level of Assist On Stairs Standby Assistance,Contact Guard Assistance,1 Person Assistance Devices Stair Climbing Assistive Devices Left Railing,Right Railing Technique/Endurance Stair Climbing Direction Ascend and Descend Stair Climbing Technique Step Over Step Number of Steps Climbed 3 Query Text: Stair Climbing Set # Repetitions (reps) 2 Comments Stair Climbing Comments Similarly, PT must cue pt to where the steps are, PT asks pt to scan for the steps and he walks past them. Scanning activity to find his room is similar: PT cues him to look at room numbers and he con't to walk quickly towards numbers lower than his room number than be able to process turning around to find his room number. Unsure how large pt's visual field is and he does not turn head to help with scanning with PT. PT-Balance Assessment Sitting Balance and Reactions Static Sitting Balance Ability Good Dynamic Sitting Balance Ability Good Standing Balance and Reactions Static Standing Balance Ability Good Dynamic Standing Balance Ability Fair Device Used Gait belt, poor safety awareness Functional Assessments Functional Tests Functional Gait Assessment See gait comments about functional gait assessment task M5 PT-IP Objective Assessments Start: 12/25/22 13:22 Freq: NEEDED Status: Active Protocol: Document 12/25/22 14:27 MB (Rec: 12/25/22 15:18 MB [id number]) Orientation Orientation/Cognition Level of Alertness Confusional State Orientation Name,Age,Birthday,Month Language Function Ability Word Finding Difficulties Safety Awareness Decreased Safety Awareness Memory Description Short 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 His left eye has lateral gaze and he states this is baseline . Coordination Assessment Assessment Coordination Comments Pt cannot follow commands Sensation Assessment Comments Sensation Comments Pt cannot follow commands M7 PT-IP Assessment and Plan Start: 12/25/22 13:22 Freq: NEEDED Status: Active Protocol: Document 12/25/22 14:27 MB (Rec: 12/25/22 15:18 MB [id number]) PT Summary Assessment and Plan Potential Rehabilitation Potential Fair Status of Condition at Evaluation Evolving Summary Impairments Coordination,Cognition, Transfers,Gait Progress Towards Goals Slow Progress - Other Assessment Summary Pt is a 72 y/o male who mobilizes well s/p L INDUSTRIAL FURNACE FABRICATOR infarct but who presents with profound word-finding, visual tracking, command-following and safety awareness deficits. Functional gait tasks are limited more by poor visual tracking and command-following /ability to problem solve than they are by imbalance. Oculomotor and coordination testing cannot be accurately assessed given pt's cognitive presentation. He will benefit from acute PT to improve safety with gait and functional balance tasks. Goals Transfer Goal Independent Gait Goal Independent Gait Distance 100 Other Goals Pt will ascend and descend 3 steps with rails with mod I. Pt will perform WNLs on DGI or FGA to decrease fall risk. Frequency of Treatment Frequency Of Treatment Once a Day Treatment Plan Physical Therapy Treatment Plan Transfer Training,Gait Training,Balance Retraining, Neuromuscular Re-ed, Coordination Retraining Weight Bearing Status Weight Bearing Status Weight Bear as Tolerated Recommendations To Nursing Amount of Assist Needed Standby Assistance,1 Person Assist Discharge Recommendations PT Discharge Recommendations Acute Rehab Transportation Needs at Discharge Private Vehicle
--- NOTE | 2022-12-25 18:08 | ST.IPIE ---
Visit Care Team Role Provider Type Grant Moreno MD Primary Care Provider Physician Specialty: Internal Medicine Address: [address] [place] [address], [id number] Email: [email or web address] DO Emergency Provider Physician Referring Provider Specialty: Emergency Medicine Address: [address] [place] [address], [id number] Email: [email or web address] [email or web address] DO Admit Provider Physician Attending Provider Specialty: Internal Medicine Address: [address] [place] [address], [id number] Email: [email or web address] Current Diagnoses Cerebral infarction, unspecified (12/25/22) Past Medical History (Last Reviewed 12/25/22 @ 08:05 by Ashley Whittington DO) Allergic rhinitis (Medical) Anemia (Medical ~2004) iron deficiency Asthma (Medical) BPH w urinary obs/LUTS (Medical) Cataracts, bilateral (Medical ~2017) Cervical spine disease (Medical ~1990) Chicken pox (Medical) Childhood Chronic back pain (Medical ~2004) Colon polyps (Medical ~1999) Coronary artery disease (Medical) Diabetes (Medical ~2017) Disease of spine (Medical ~1990) Lumbar spine Essential hypertension (Medical) GERD (gastroesophageal reflux disease) (Medical ~1999) GERD without esophagitis (Medical) History of colonic polyps (Medical) HTN (hypertension) (Medical ~1996) Hyperlipidemia (Medical ~1996) 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) Iron deficiency anemia (Medical) Low testosterone (Medical ~2010) Measles (Medical) Childhood Migraines (Medical ~1979) Mixed hyperlipidemia (Medical) Mumps (Medical) Childhood Osteoarthritis (Medical ~2008) Osteopenia (Medical ~1999) Type 2 diabetes mellitus with cardiac complication (Medical) ST IP Initial Evaluation Report ORACLE FINANCIALS CONSULTANT Adult Cognitive Linguistic Eval Start: 12/25/22 17:48 Freq: Status: Active Protocol: Document 12/25/22 17:49 CG (Rec: 12/25/22 18:08 CG [id number]) Adult Cognitive Linguistic Evaluation Session Time Visit Start Time 17:20 Visit Stop Time 17:50 Total Visit Minutes 30 Visit Information Visit Number [address] Croft Reason for Referral CVA, word finding difficulties Setting Assessment Location Acute Care Visit Type Note Type Initial evaluation Next Note Type Next Note Type Treatment Note Patient Information Identification Type Name,Wristband Patient History Per H&P: Mauri Petersen is a 72yo M with PMH of HTN, HLD, DM2, CAD, migraines followed by Dr. Nicole neuro, BPH, iron def anemia, OA, GERD and left eye strabismus who presents with 2 days of difficulty forming thoughts, confusion, vision changes, and headache. Patient is unable to provide much history due to mental status so obtained from chart. He does think that his symptoms began 2 days ago . He waited to come to the ED because he thought it was all migraine-related. He currently has a slight left-sided headache. No visual changes, facial droop, weakness in arms or legs, dysarthria or dysphagia. He has trouble forming thoughts and speaks with lots of pauses. Says he is frustrated because can't come up with what to say. In the ED patient had an NIH of 2. CT and CTA head were negative. MRI brain showed acute left FOREST ECOLOGIST stroke. BP was 236/108 and given IV labetalol . Pt was referred to due to word-finding difficulties and memory concerns. 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 During this initial interaction, pt was disoriented. When asked where he was, he stated Well, I'm not...going on. He frequently repeated how he couldn't remember anything and it was hard for him to think of words . His speech rate at this time was significantly slowed. When ORACLE FINANCIALS CONSULTANT returned later to continue evaluation, pt was able to answer yes/no questions to orient to place. He continued to present with halting speech and right sided neglect. Mental Status Cooperative,Confused Assessment Oral Motor Examination Completed Yes Results Oral motor structure and function appear WFL for speech and swallowing. Informal Assessment Receptive Language Normal No Receptive Language Impairment(s) Comprehension of complex yes/ no questions,Comprehension of conversation Expressive Language Normal No Expressive Language Impairment(s) Confrontation naming, Expression of complex thoughts /ideas Pragmatic Language Normal Yes Speech Normal Yes Cognition Normal No Cognitive Impairment(s) Orientation,Short-term memory, Long-term memory,Thought organization Formal Assessment Standardized Test/Screener Type Quick Aphasia Battery (QAB) Administration Complete Results Pt scored the following scores on the subtests of the QAB: Word Comprehension: 100% Sentence Comprehension: 71% Word Findin% Grammatical Construction: 95% Speech Motor Programmin% Readin% QAB Overall: 85.9% Findings/Results Language Function Mild-moderately impaired Cognitive Function Moderately-severely impaired Findings Pt presents with fluctuating cognitive-linguistic status, with pt fluctuating between being unable to orient to place and able to recall complex ideas such as names of medications (though it should be noted 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 Per nursing, ED reported his cognitive status frequently fluctuated. 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 He presents with occasional word-finding difficulties of low-frequency/tier-three words and occasional halted speech, though he is intermittently able to produce connected speech WFL. Receptive language is mildly impaired with pt demonstrating difficulty understanding complex sentences. Recommend further cognitive evaluation and monitoring as pt's linguistic abilities appear to be stronger than his cognitive abilities ( especially memory/orientation) at present. Pt may benefit from inpatient rehabilitation upon d/c from hospital. Given pt's dx of L FOREST ECOLOGIST infarct, cognitive-linguistic abilities are likely to be significantly impacted by this cerebral injury and should continue to be assessed and treated as appropriate. Cognitive Communication Deficits Self-awareness of Cognitive- Situational awareness ( Communication Deficits recognition of problem in context;in real time) Concomitant Factors Concomitant Factors Visual field neglect,Other ( comment) Comment Visual agnosia; cognitive status/orientation waxes and wanes Impact on Functioning Activity Limits/Particip.Rest. Mod: General Tasks and Demands Household Tasks Interpersonal Interactions Sev: Community Safety Risks Sev: Being Left Alone at Home Reacting to Emergency Managing Medication Traveling Alone in Community Prognosis Prognosis Fair Based on Other (comment) Comment High PLOF for cognition Plan of Care Speech-Language Treatment Yes Patient/Caregiver Education Described results of evaluation,Patient expressed understanding of evaluation, Patient expressed agreement with goals and treatment plans ,Patient requires further education/training Short Term Goals Pt will answer orientation questions independently with 100% accuracy in order to decrease confusion and increase safety. Pt will follow two-step directions with 100% accuracy independently in order to participate with therapy. Discharge Recommendations Inpatient rehab facility
[2022-12-25] MEDS: AMOXICILLIN 250 MG CAPSULE 500 MG PO (18:53)
[2022-12-25] MEDS: NORTRIPTYLINE 10 MG CAPSULE 20 MG PO (21:44)
[2022-12-25] MEDS: ATORVASTATIN 20 MG TABLET 80 MG PO (21:44)
[2022-12-26] VITALS (7 sets, daily range): BP systolic 133–177; BP diastolic 65–83; PULSE 72–81; RESP 16–18; TEMP 36–36.8; O2SAT 95–98
[2022-12-26] MEDS: AMOXICILLIN 250 MG CAPSULE 500 MG PO ×2 (02:49→08:30)
[2022-12-26] MEDS: PANTOPRAZOLE DR 20 MG TABLET PO (06:05)
[2022-12-26 06:24] LABS: Add Manual Diff / Slide Review NO; Basophils Absolute Auto 0 /uL (0-100); Basophils Percent Auto 0.4 % (0-2); Eosinophils Absolute Auto 100 /uL (0-450); Eosinophils Percent Auto 0.7 % (2-4); Hematocrit 41.9 % (41-53); Hemoglobin 14.8 g/dL (13.5-17.5); Lymphocytes Absolute Auto 900 /uL (1100-4500); Lymphocytes Percent Auto 7.2 % (25-40); Mean Corpuscular HGB Conc 35.4 % (30-36); Mean Corpuscular Hemoglobin 29.6 PG (26-34); Mean Corpuscular Volume 83.5 fL (80-100); Monocytes Absolute Auto 1000 /uL (0-900); Neutrophils Absolute Auto 10900 /uL (1500-7000); Neutrophils Percent Auto 83.7 % (50-75); Platelet Count 205 X10^3/uL (150-400); Red Blood Cell Count 5.01 X10^6/uL (4.5-5.9); Red Cell Distribution Width 13.2 % (11.6-14.8)
[2022-12-26 06:34] LABS: BUN Creatinine Ratio 27.3 (6-22); Blood Urea Nitrogen 24 mg/dL (9-20); Calcium 9.4 mg/dL (8.4-10.2); Carbon Dioxide 25 mmol/L (22-32); Chloride 104 mmol/L (98-107); Estimated Glomerular Filt Rate > 60 mL/min (>60); Glucose 161 mg/dL (80-110); HEMOLYSIS < 15 (0-50); Potassium 3.8 mmol/L (3.4-5.1); Sodium 136 mmol/L (137-145)
--- NOTE | 2022-12-26 07:57 | P.PN_ITS ---
Exam Vital Signs (past 8 hours): - 12/26/22 00:00 12/26/22 04:00 Temperature 98.3 F 97.1 F L Pulse Rate 78 72 Respiratory Rate 18 18 Blood Pressure 159/68 H 177/83 H Pulse Oximetry 96 95 Oxygen Flow Rate 0 0 Oxygen Delivery Method Room Air Oxygen Flow Rate 0 Narrative Exam Narrative: GEN: appears frustrated HEENT: moist mucous membranes, left eye lateral strabismus NECK: trachea midline, no JVD CV: regular rate and rhythm, no murmurs PULM: clear bilaterally ABD: soft, nontender, nondistended, no organomegaly EXT: warm and well perfused with no edema NEURO: difficulty with thought production and memory recall, no focal deficits Objective Labs 12/26/22 06:00 12/26/22 06:00 Labs: Laboratory Results - last 24 hr 12/25/22 12/25/22 12/25/22 06:55 06:55 06:55 WBC RBC Hgb Hct MCV MCH MCHC RDW Plt Count Neut % (Auto) Lymph % (Auto) Collin % (Auto) Eos % (Auto) Baso % (Auto) Neut # (Auto) Lymph # (Auto) Collin # (Auto) Eos # (Auto) Baso # (Auto) Sodium Potassium Chloride Carbon Dioxide BUN Creatinine Estimated GFR BUN/Creatinine Ratio Glucose Calcium Troponin I < 0.012 Triglycerides 121 Cholesterol 170 LDL Cholesterol, Calc 75 HDL Cholesterol 71 H TSH 1.39 12/26/22 12/26/22 06:00 06:00 WBC 13.0 H RBC 5.01 Hgb 14.8 Hct 41.9 MCV 83.5 MCH 29.6 MCHC 35.4 RDW 13.2 Plt Count 205 Neut % (Auto) 83.7 H Lymph % (Auto) 7.2 L Collin % (Auto) 8.0 Eos % (Auto) 0.7 L Baso % (Auto) 0.4 Neut # (Auto) 58066 H Lymph # (Auto) 900 L Collin # (Auto) 1000 H Eos # (Auto) 100 Baso # (Auto) 0 Sodium 136 L Potassium 3.8 Chloride 104 Carbon Dioxide 25 BUN 24 H Creatinine 0.88 Estimated GFR > 60 BUN/Creatinine Ratio 27.3 H Glucose 161 H Calcium 9.4 Troponin I Triglycerides Cholesterol LDL Cholesterol, Calc HDL Cholesterol TSH [facility] Medical History Allergic rhinitis Anemia (~2004) Asthma BPH w urinary obs/LUTS Cataracts, bilateral (~2017) Cervical spine disease (~1990) Chicken pox Chronic back pain (~2004) Colon polyps (~1999) Coronary artery disease Diabetes (~2017) Disease of spine (~1990) Essential hypertension GERD (gastroesophageal reflux disease) (~1999) GERD without esophagitis History of colonic polyps HTN (hypertension) (~1996) Hyperlipidemia (~1996) Insomnia secondary to chronic pain Iron deficiency anemia Low testosterone (~2010) Measles Migraines (~1979) Mixed hyperlipidemia Mumps Osteoarthritis (~2008) Osteopenia (~1999) Type 2 diabetes mellitus with cardiac complication Surgical History Anesthesia H/O heart artery stent Family History Father Cancer Hypertension Stroke Mother Cancer Hypertension Vascular dementia Grandfather History of heart disease Grandfather Cancer 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 details: (Reyna, 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, 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 Smoking Status: Never smoker alcohol intake: current Assessment & Plan Assessment & Plan narrative: # acute left SENIOR COMPENSATION ANALYST stroke -presented with 2 days of confusion, difficulty with forming thoughts, visual changes and headache -CT/CTA head negative -MRI confirmed acute multifocal left SENIOR COMPENSATION ANALYST stroke -ASA plus plavix -statin as below -PT/OT/PADDED PRODUCTS INSPECTOR TRIMMER evals, may need acute rehab -echo -tele -permissive HTN allowed for 24 hours # hypertensive urgency -BP 238/108 in ED, given labetalol and now improved -labetalol PRN for SBP >220 or DBP >110 then will start BP meds -restarted home losartan, felodipine and metoprolol after 24 hours # DM2 -continue home jardiance, hold metformin -A1c 6.2% in October 2022 -low dose SSI # HLD -increase home lipitor from 40 to 80 nightly # BPH -continue home finasteride # migraines -followed by Dr. Nicole, neuro at [facility] -continue home nortriptyline -hold home Nurtec Code status is full code. DVT prophylaxis with Lovenox. Proxy is . Dispo:
[2022-12-26] MEDS: METOPROLOL ER 50 MG TABLET PO (08:23)
[2022-12-26] MEDS: FERROUS SULFATE 325 MG TABLET PO (08:23)
[2022-12-26] MEDS: Empagliflozin [Jardiance] 25 mg tablet 25 EACH PO (08:23)
[2022-12-26] MEDS: LOSARTAN 50 MG TABLET PO (08:24)
[2022-12-26] MEDS: ASPIRIN EC 81 MG TABLET PO (08:24)
[2022-12-26] MEDS: ENOXAPARIN 40 MG/0.4 ML SYRINGE SUBCUT (08:25)
[2022-12-26] MEDS: CLOPIDOGREL 75 MG TABLET PO (08:25)
[2022-12-26] MEDS: FELODIPINE 5 MG 10 EACH PO (08:25)
[2022-12-26] MEDS: FINASTERIDE 5 MG TABLET PO (08:25)
--- NOTE | 2022-12-26 10:54 | ST.IPTN ---
Visit Care Team Role Provider Type Grant Moreno MD Primary Care Provider Physician Address: [address] [place] [address], [id number] Ashley Whittington DO Emergency Provider Physician Referring Provider Address: [address] [place] [address], [address] Jeffery Croft DO Admit Provider Physician Attending Provider Address: [address] [place] [address], [id number] UTILITY ARBORIST Treatment Note UTILITY ARBORIST Treatment Note Start: 12/26/22 10:41 Freq: Status: Active Protocol: Document 12/26/22 10:41 CG (Rec: 12/26/22 10:54 CG [id number]) Speech Pathology Treatment Note Session Time Visit Start Time 10:15 Visit Stop Time 10:35 Total Visit Minutes 20 Visit Information Visit Number 2 Setting Treatment Setting Acute Care Visit Type Note Type Initial Evaluation Next Note Type Next Note Type Treatment Note General Information Patient History Per H&P: Mauri Petersen is a 72yo M with PMH of HTN, HLD, DM2, CAD, migraines followed by Dr. Nicole neuro, BPH, iron def anemia, OA, GERD and left eye strabismus who presents with 2 days of difficulty forming thoughts, confusion, vision changes, and headache. Patient is unable to provide much history due to mental status so obtained from chart. He does think that his symptoms began 2 days ago . He waited to come to the ED because he thought it was all migraine-related. He currently has a slight left-sided headache. No visual changes, facial droop, weakness in arms or legs, dysarthria or dysphagia. He has trouble forming thoughts and speaks with lots of pauses. Says he is frustrated because can't come up with what to say. In the ED patient had an NIH of 2. CT and CTA head were negative. MRI brain showed acute left FURNACE COMBUSTION TESTER stroke. BP was 236/108 and given IV labetalol . Pt was referred to due to word-finding difficulties and memory concerns. Subjective Identification Type Name,ID Wristband Observations/Patient Presentation Pt was laying in bed upon ST entry to room. He was alert, oriented, and amenable to completing cognitive screener. Pt stated that my eyes are focusing weird. Further explained that I have independently focusing eyes [ at baseline] which is not common, but that currently my vision james don't quite match up right. 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 Chief Complaint(s) Cognitive Patient Knowledge/Awareness of UTILITY ARBORIST Role Good in Treatment Objective Short Term Goals Pt will answer orientation questions independently with 100% accuracy in order to decrease confusion and increase safety. Pt will follow two-step directions with 100% accuracy independently in order to participate with therapy. Treatment Activities UTILITY ARBORIST administered [facility] Mental Status Examination. Pt scored a 19/ 30, indicating some cognitive deficits are still present. Conducted informal orientation assessment. Additionally, UTILITY ARBORIST provided pt education regarding cognitive rehabiliation for initiating discharge planning. Assessment Patient Response to Treatment Excellent Rehab Potential Excellent Impairments Identified Cognitive communication Progress Towards Goals Excellent Progress Assessment of Overall Progress Improving Assessment of Improvement Pt answered all orientation questions accurately today, with the exception of stating the year, which he said was 1922 rather than 2022. On the SLUMS screener, he had difficulty with tasks involving multi-step directions and using working memory (e.g., two-step math problem). Additionally, he continues to present with right sided visual neglect. Pt was interested in inpatient rehab for cognitive rehabilitation, stating that he is hopeful he can return to his baseline level of function. Per hospitalist Dr. Croft, pt is medically stable and will likely d/c to inpatient rehab today or tomorrow. Reviewed with Patient Progress Being Made Plan Amount of Therapy Recommended 2-[address] in IP rehab Therapeutic Contents Cognitive-Linguistic Training Provided Patient/Caregiver Instruction Plan of Care,Questions/ Concerns
--- NOTE | 2022-12-26 11:27 | CM.DANOTE ---
Addendum entered by Adry Clarke R.N. 12/26/22 14:41: Patient already left facility, updated Dr. Croft, he is working on DC Summary. He just completed, and faxed it over to [facility]. Addendum entered by Adry Clarke R.N. 12/26/22 13:52: Confirmed with Svetlana at [facility] that she can be accepted today, as long as he is there before 3:30. Confirmed that patient can't go home prior, needs to go there from here. He is calling his spouse about picking him up. Updated Dr. Croft, and gave nurse, Jennifer, phone number for report. Original Note: DCP: Case received, EMR reviewed and met with patient. Introduced self and role. Was able to obtain information regarding patient's baseline activity status prior to hospitalization. DCP assessment completed with information currently available. Patient is a 72 year old male who admitted yesterday morning to the care of the hospitalist team. PCP: Dr. Moreno. Payer: confirmed: Medicare/[employer] [facility]. Patient came to the hospital via private vehicle secondary to having increased confusion. Notes indicate that symptoms started when he developed a headache with blurry vision. Patient also was confused as to what year and how old he is. Patient noted no facial droop or numbness. Patient was also complaining of right sided head ache. After MRI was obtained, patient was noted to have acute multifocal left TUBE WINDER HAND stroke. Dr. Croft, hospitalist, had called this DC Lead Technical Architect and stated that patient would be a good candidate for acute inpatient rehab. 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 P.T, speech, and O.T. have worked with him and also suggested the same. Asked KIERSTEN Rudolph operations and intelligence assistant, to fax referrals including all therapy disciplines to [facility] and [place]. Met with patient in his room. He is pleasant, was sitting up in bed. Stated, he didn't feel as confused as yesterday. He does not remember what is wrong with him, has problems with his depth preception and still has severe headaches. Confirmed that he resides here in [place] with spouse, Nancy. 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 Discussed inpatient rehab and the services that they provide. After discussion, is on board with this, is willing to travel to [place] if necessary, but is hopeful for [facility], since it's closer. Patient is aware that spouse would need to transport, and that he could discharge today. Let him know that this would depend upon bed availability. Originally left a message with Alicia at [facility], and [facility] in [place]. Patient is Medicare, secondary is [facility]. Alicia then called back and stated that they have beds. She has referral and will review. There is a change that patient could go today. P: DCP to continue to follow. Plan is acute patient rehab, most likely [facility], is under review, could potentially happen today if accepted. Adry Clarke RN/Supervisor Car And Yard Discharge Planning/Care Management CM Discharge Assessment Start: 12/26/22 11:26 Freq: Status: Active Protocol: Document 12/26/22 11:26 (Rec: 12/26/22 11:27 [id number]) Discharge Planning Assessment Assigned Marine Underwriter Adry Clarke RN/Supervisor Car And Yard Advance Directives? Yes: Adavance Directive: DPOA Advance Directives on File No History Provided By Patient,Medical Record Prior Living Arrangements House Household Members spouse Type of transporation used prior to Drives own vehicle admit Independent with ADL's Yes Is patient alert and oriented? Yes Caregiver for Another No Barriers to Discharge No Discharge Plan Inpatient Rehab Unit Transportation Arrangement Spouse Referrals Initiated Other Additional Comment Acute Inpatient [facility] and [facility] . Whiteboard Updated in Patient Room with Yes name and ext. # of Marine Underwriter Review Status In Process Next Review Type Continued Stay Review
--- NOTE | 2022-12-26 14:31 | PM.DS.1 ---
History of Present Illness History of Present Illness Chief complaint: migraine T-1/confused/memory issues Narrative: Mauri Petersen is a 72yo M with PMH of HTN, HLD, DM2, CAD, migraines followed by Dr. Nicole neuro, BPH, iron def anemia, OA, GERD and left eye strabismus who presents with 2 days of difficulty forming thoughts, confusion, vision changes, and headache. Patient is unable to provide much history due to mental status so obtained from chart. He does think that his symptoms began 2 days ago. He waited to come to the ED because he thought it was all migraine-related. He currently has a slight left-sided headache. No visual changes, facial droop, weakness in arms or legs, dysarthria or dysphagia. He has trouble forming thoughts and speaks with lots of pauses. Says he is frustrated because can't come up with what to say. In the ED patient had an NIH of 2. CT and CTA head were negative. MRI brain showed acute left CYLINDER CHECKER stroke. BP was 236/108 and given IV labetalol. Discharge Providers Provider Date of admission: 12/25/22 08:55 Discharge Date: 12/26/22 Primary care physician: Grant Moreno MD Consults: 12/25/22 09:09 Consult to Discharge Planning Routine Comment: Consult to Occupational Therapy Evaluate & Treat Comment: Physician Instructions: Evaluate and treat Consult to Physical Therapy Evaluate & Treat Comment: Physician Instructions: Evaluate and Treat 12/25/22 11:58 Consult to Speech Therapy Evaluate & Treat Comment: acute stroke Physician Instructions: Evaluate and treat Discharge provider: Jeffery Croft DO Summary Hospital Course Discharge Diagnosis: # acute left CYLINDER CHECKER stroke -presented with 2 days of confusion, difficulty with forming thoughts, visual changes and headache -CT/CTA head negative -MRI confirmed acute multifocal left CYLINDER CHECKER stroke -ASA plus plavix x21 days -increased home atorvastatin to 80 nightly -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, may need acute rehab -echo showed EF 50-55% with mild LVH, mild AR and mild aortic valve sclerosis -tele -permissive HTN allowed for 24 hours -discharged to acute rehab at [facility] [place] [facility] # hypertensive urgency -BP 238/108 in ED, given labetalol and now improved -labetalol PRN for SBP >220 or DBP >110 then will start BP meds -restarted home losartan, felodipine and metoprolol after 24 hours # DM2 -continue home jardiance, hold metformin -A1c 6.2% in October 2022 -low dose SSI # HLD -increase home lipitor from 40 to 80 nightly # BPH -continue home finasteride # migraines -followed by Dr. Nicole, neuro at [facility] -continue home nortriptyline -hold home [facility] Course: See above problem list. Exam Vital Signs (past 8 hours): - 12/26/22 08:23 12/26/22 08:24 12/26/22 08:00 Temperature 96.8 F L Pulse Rate 81 81 81 Respiratory Rate 16 Blood Pressure 164/74 H 164/74 H 164/74 H Pulse Oximetry 97 Oxygen Delivery Method Oxygen Flow Rate 0 12/26/22 10:04 12/26/22 07:00 12/26/22 12:00 Temperature 97.8 F Pulse Rate 81 81 Respiratory Rate 17 Blood Pressure 133/65 Pulse Oximetry 98 Oxygen Delivery Method Room Air Oxygen Flow Rate 0 Oxygen Delivery Method Room Air Oxygen Flow Rate 0 Narrative Exam Narrative: GEN: pleasant HEENT: moist mucous membranes, left eye lateral strabismus NECK: trachea midline, no JVD CV: regular rate and rhythm, no murmurs PULM: clear bilaterally ABD: soft, nontender, nondistended, no organomegaly EXT: warm and well perfused with no edema NEURO: difficulty with thought production and memory recall, no focal deficits Objective Labs 12/26/22 06:00 12/26/22 06:00 Labs: Laboratory Results - last 24 hr 12/26/22 12/26/22 06:00 06:00 WBC 13.0 H RBC 5.01 Hgb 14.8 Hct 41.9 MCV 83.5 MCH 29.6 MCHC 35.4 RDW 13.2 Plt Count 205 Neut % (Auto) 83.7 H Lymph % (Auto) 7.2 L [place] % (Auto) 8.0 Eos % (Auto) 0.7 L Baso % (Auto) 0.4 Neut # (Auto) 78919 H Lymph # (Auto) 900 L [place] # (Auto) 1000 H Eos # (Auto) 100 Baso # (Auto) 0 Sodium 136 L Potassium 3.8 Chloride 104 Carbon Dioxide 25 BUN 24 H Creatinine 0.88 Estimated GFR > 60 BUN/Creatinine Ratio 27.3 H Glucose 161 H Calcium 9.4 PFSH Medical History Allergic rhinitis Anemia (~2004) Asthma BPH w urinary obs/LUTS Cataracts, bilateral (~2017) Cervical spine disease (~1990) Chicken pox Chronic back pain (~2004) Colon polyps (~1999) Coronary artery disease Diabetes (~2017) Disease of spine (~1990) Essential hypertension GERD (gastroesophageal reflux disease) (~1999) GERD without esophagitis History of colonic polyps HTN (hypertension) (~1996) Hyperlipidemia (~1996) Insomnia secondary to chronic pain Iron deficiency anemia Low testosterone (~2010) Measles Migraines (~1979) Mixed hyperlipidemia Mumps Osteoarthritis (~2008) Osteopenia (~1999) Type 2 diabetes mellitus with cardiac complication Surgical History Anesthesia H/O heart artery stent Family History Father Cancer Hypertension Stroke Mother Cancer Hypertension Vascular dementia Grandfather History of heart disease Grandfather Cancer 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 details: (Reyna, 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 Discharge Date/Time: 12/26/22 14:20
== END 2022-12-26 14:20 | disposition short-term general hospital (02) | DRG 66 ==
LOC: ED 07:18 → AC 08:56
PROVIDERS: Admitting Provider Student in an Organized Health Care Education/Training Program; Emergency Provider Emergency Medicine; PCP Internal Medicine; Referring Provider Emergency Medicine; Visit Provider Student in an Organized Health Care Education/Training Program
DX: I63.9 Cerebral infarction, unspecified (principal); R29.702 NIHSS score 2; I16.0 Hypertensive urgency; E11.9 Type 2 diabetes mellitus without complications; E78.5 Hyperlipidemia, unspecified; N40.0 Benign prostatic hyperplasia without lower urinary tract symptoms; G43.909 Migraine, unspecified, not intractable, without status migrainosus; I10 Essential (primary) hypertension; I25.10 Atherosclerotic heart disease of native coronary artery without angina pectoris; D64.9 Anemia, unspecified; R29.708 NIHSS score 8; Z79.84 Long term (current) use of oral hypoglycemic drugs; Z20.822 Contact with and (suspected) exposure to COVID-19
CPT/HCPCS: 36415; 70450; 70496; 70498; 70551; 71045; 80048; 80053; 80061; 81003; 82550; 82962; 83690; 83735; 84443; 84484; 85025; 85610; 85730; 92523; 93005; 93306; 96374; 96376; 97116; 97162; 97166; 97535; 99285; J1650; J1815; J2060; Q9967

== ENCOUNTER → 2023-01-03 17:10 | Outpatient (CLI) | payer MEDICARE, OTHER, SELFPAY ==
[2022-12-25 10:51] VITALS: BMI 28.0
[2023-01-03 17:57] LABS: Hematocrit 41.7 % (41-53); Hemoglobin 14.9 g/dL (13.5-17.5); Mean Corpuscular HGB Conc 35.7 % (30-36); Mean Corpuscular Hemoglobin 29.8 PG (26-34); Mean Corpuscular Volume 83.5 fL (80-100); Platelet Count 217 X10^3/uL (150-400); Red Blood Cell Count 4.99 X10^6/uL (4.5-5.9); Red Cell Distribution Width 12.9 % (11.6-14.8)
[2023-01-03 18:10] LABS: Aspartate Aminotransferase 26 IU/L (17-59); BUN Creatinine Ratio 23.9 (6-22); Blood Urea Nitrogen 22 mg/dL (9-20); Calcium 9.5 mg/dL (8.4-10.2); Carbon Dioxide 32 mmol/L (22-32); Chloride 99 mmol/L (98-107); Cholesterol 144 mg/dL (140-199); Estimated Glomerular Filt Rate > 60 mL/min (>60); Glucose 128 mg/dL (80-110); HDL Cholesterol 51 mg/dL (40-60); HEMOLYSIS < 15 (0-50); LDL Cholesterol Calculated 51 mg/dL (<100); Potassium 3.2 mmol/L (3.4-5.1); Sodium 137 mmol/L (137-145); Triglycerides 211 mg/dL (35-150)
[2023-01-05 03:05] LABS: Labcorp Hemoglobin (Hb) A1c 6.4 % (4.8-5.6)
== END ==
PROVIDERS: Family Provider Internal Medicine; PCP Internal Medicine; Referring Provider Internal Medicine; Visit Provider Internal Medicine
DX: E11.59 Type 2 diabetes mellitus with other circulatory complications (principal); N13.8 Other obstructive and reflux uropathy; N40.1 Benign prostatic hyperplasia with lower urinary tract symptoms; E78.2 Mixed hyperlipidemia; I10 Essential (primary) hypertension; I67.9 Cerebrovascular disease, unspecified
CPT/HCPCS: 36415; 80048; 80061; 83036; 84450; 85027

== ENCOUNTER → 2023-01-18 09:35 | Outpatient (CLI) | payer MEDICARE, OTHER, SELFPAY ==
[2022-12-25 10:51] VITALS: BMI 28.0
== END ==
PROVIDERS: Family Provider Internal Medicine; PCP Internal Medicine; Referring Provider Internal Medicine; Visit Provider Internal Medicine
DX: I63.9 Cerebral infarction, unspecified (principal)
CPT/HCPCS: 93246

== ENCOUNTER → 2023-01-22 08:46 | Outpatient (CLI) | payer MEDICARE, OTHER, SELFPAY ==
[2022-12-25 10:51] VITALS: BMI 28.0
[2023-01-22 10:38] LABS: BUN Creatinine Ratio 22.2 (6-22); Blood Urea Nitrogen 22 mg/dL (9-20); Calcium 9.5 mg/dL (8.4-10.2); Carbon Dioxide 31 mmol/L (22-32); Chloride 96 mmol/L (98-107); Estimated Glomerular Filt Rate > 60 mL/min (>60); Glucose 128 mg/dL (80-110); HEMOLYSIS < 15 (0-50); Potassium 3.6 mmol/L (3.4-5.1); Sodium 135 mmol/L (137-145)
== END ==
PROVIDERS: Family Provider Internal Medicine; PCP Internal Medicine; Referring Provider Internal Medicine; Visit Provider Internal Medicine
DX: I10 Essential (primary) hypertension (principal)
CPT/HCPCS: 36415; 80048

== ENCOUNTER 2023-02-28 10:45 | Outpatient (RCR) | payer MEDICARE, OTHER, SELFPAY ==
[2022-12-25 10:51] VITALS: BMI 28.0
--- NOTE | 2023-01-10 15:54 | OT.OP.EVAL ---
Visit Care Team Role Provider Type Grant Moreno MD Family Provider Physician Primary Care Provider Specialty: Internal Medicine Address: [address] [place] [address], [id number] Email: [email or web address] Jennifer Smith MD Attending Provider Non-Staff Referring Provider Specialty: Physical Medicine and Rehab Address: [address] [place] [address], [id number] Email: Occupational Therapy Initial Evaluation OT Outpatient Adult Evaluation Start: 01/10/23 15:14 Freq: Status: Active Protocol: Document 01/10/23 15:14 AMS (Rec: 01/10/23 15:53 AMS [id number]) General Information - Adult Visit Number 07/25 Plan of Care Dates 01/10/23 - 03/07/23 Insurance Information Medicare Visit Start Time 10:45 Visit Stop Time 11:45 Total Visit Minutes 60 Treatment Setting Outpatient Care Note Type Initial Evaluation Identification Confirmed Yes Identification Confirmed By Self Goals Treatment Discussion of findings. Discussion of recommended exercises. 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 Carolina will be modified independent with execution of home exercise program utilizing provided written and visual instructions from therapist. 2. [place] will demonstrate improved visual scanning abilities, as evidenced by ability to correctly identify 35-36 out of 36 single letter targets with visual scanning activity without complaints of visual fatigue. 3. Carolina will report ability to read and comprehend the headlines of preferred newspaper, 6 out of 7 days of a week, without need for visual breaks and/or reported difficulties understanding context of headline articles. 4. Carolina will report ability to engage in bird watching > 30 minutes without reported difficulties visually tracking the birds' and their movements (on 2+ separate dates). Assessment/Plan Treatment Assessment Carolina is a 72 year-old referred to outpatient OT d/t L SHOW HOST/HOSTESS infarct. Medical History : STM deficits; visual deficits; R homonymous hemianopsia; h/o ocular migraines; cataract surgery ( approx 7 months ago); L eye strabismus; radiofrequency ablation (November 2022) secondary to back pain (receiving outpatient PT); L CTS w/ h/o treatment (use of night splint and instructed in exercises). Reportedly informed that eyes independently focus (since he was a child). 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 Instructed in VOR, head turning L <-> R w/ visual fixation on fixed target at midline x 30 seconds from OT as exercise. Carolina reportedly resides w/ his in a 1 story home; he walks approx 40 minutes per day with his (w/ PLOF 50 to 60 minutes). Presents without use of mobility AE. Denies any fine motor/ADL deficits. Reported difficulties including reading , visually scanning, and driving. R hand dominant w/ handwriting legible w/ smooth formation of shapes/letters (w / pen resting on 3rd digit and 2nd digit and thumb positioned on pen). QuickDASH UE Outcome Measure Score = 20. 45; Sports/Performing Arts Module = 0.00. Denial of numbness/tingling of B UEs besides CTS of L UE. No indication of pain/discomfort on Hand Pain Assessment Grid. Denial of dizziness and/or double vision. (-) observed bumping into gallagher/objects in his environment w/ body and/or UE. Observed to sit at midline of mat and width chair . Able to locate personal items with efficiency, including hat, pen, extra layers of clothing. Utilization of finger w/ paper tasks w/ left -> right, right -> left alt visual scanning approach. Able to correctly identify 26 out of 36 single letter targets first trial and 31 out of 36 single letter targets second trial. (+) 3 errors observed w/ visual saccade task horizontally x 10 rows alt verbal identification of letters ( outside -> inside) x 2 trials; (-) errors observed w/ visual saccade task initial trial when completed vertically; 3 errors observed w/ visual saccade task 2nd trial completed vertically. With number based visual scanning task, able to correctly identify 7 single digit target numbers without spacing between rows of numbers. (+) wearing of glasses w/ completion of assessments w/ clinician and w/ completion of paperwork. Reads primarily on zoltan or ipad; also enjoys reading newspaper (headlines). Reports fatigue w/ reading w/ noted fatigue d/t decreased comprehension of read material ; report of having to re-read lines/materials. Report of going to bed early and frequent napping secondary to fatigue. Carolina reported that he is waiting to be seen by neuro opthalmologist (in [place]) ; appt has yet to be scheduled . Carolina presents w/ inconsistencies w/ visual scanning and visual saccades when moving eyes between targets in horizontal and vertical fashions; he reports visual fatigue and decreased ability to actively participate in reading tasks, which is a meaningful activity for him. He does have h/o ocular migraines and cataract surgery and L eye strabismus w / report of ability to eyes to independently focus on visual targets since being a child. Recommendation to be evaluated by neuro opthalmologist prior to returning to driving w/ also discussion w/ PCP given that he has been followed medically by Dr. Moreno for the last several years; patient also has follow-up w/ Neurologist this Sunday. Outpatient OT is recommended to identified areas to support Carolina's ability to successfully engage in meaningful activities in a variety of environments. Home Exercise Program 01/10/23 = Rec visual tracking birds when stationary without movement of head (given preferred activity). Also recommended visually scanning environment without movement of head when engaged in daily walks thru town w/ . Length of treatment (weeks) 8 Plan of Care Start Date 01/10/23 Plan of Care End Date 03/07/23 Treatment Frequency Once a Week Therapeutic Contents Client Education,Cognitive Skills Development,Functional Activities,Home Exercise Program,Education,Self-Care, Therapeutic Activities, Therapeutic Exercises
--- NOTE | 2023-01-11 11:31 | OT.OP.TRT ---
Visit Care Team Role Provider Type Grant Moreno MD Family Provider Physician Primary Care Provider Specialty: Internal Medicine Address: [address] [place] [address], [address] Email: [email or web address] Jennifer Smith MD Attending Provider Non-Staff Referring Provider Specialty: Physical Medicine and Rehab Address: [address] [place] [address], [id number] Email: Occupational Therapy Treatment Note OT Outpatient Treatment Note - Adult Start: 01/10/23 15:14 Freq: Status: Active Protocol: Document 01/11/23 11:30 AMS (Rec: 01/11/23 11:31 AMS [id number]) OT Outpatient Adult Treatment Note Visit Type Note Type Administrative Note - Subjective Observations Faxed initial eval/POC to Mirza Gill MD given signed consent to release information by patient. - - - -
--- NOTE | 2023-01-17 15:02 | OT.OP.TRT ---
Visit Care Team Role Provider Type Grant Moreno MD Family Provider Physician Primary Care Provider Specialty: Internal Medicine Address: [address] [place] [address], [id number] Email: [email or web address] Jennifer Smith MD Attending Provider Non-Staff Referring Provider Specialty: Physical Medicine and Rehab Address: [address] [place] [address], [id number] Email: Occupational Therapy Treatment Note OT Outpatient Treatment Note - Adult Start: 01/10/23 15:14 Freq: Status: Active Protocol: Document 01/17/23 14:50 AMS (Rec: 01/17/23 15:02 AMS [id number]) OT Outpatient Adult Treatment Note Session Time Visit Start Time 08:30 Visit Stop Time 09:25 Total Visit Minutes 55 Visit Information Visit Number 08/25 Plan of Care Dates 01/10/23 - 03/07/23 Insurance Information Medicare Setting Treatment Setting Outpatient Care Visit Type Note Type Treatment Note General Information General Information Carolina is a 72 year-old referred to outpatient OT d/t L GRINDER HARDBOARD infarct. Medical History : STM deficits; visual deficits; R homonymous hemianopsia; h/o ocular migraines; cataract surgery ( approx 7 months ago); L eye strabismus; radiofrequency ablation (November 2022) secondary to back pain (receiving outpatient PT); L CTS w/ h/o treatment (use of night splint and instructed in exercises). Reportedly informed that eyes independently focus (since he was a child). 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 Instructed in VOR, head turning L <-> R w/ visual fixation on fixed target at midline x 30 seconds from OT as exercise. - Subjective Identification Type Name Identification Reconciled With Medical Record - Objective Objective Measurements Please refer to below for progress made towards meeting established OT goals: Shelter Goals 1. Carolina will be modified independent with execution of home exercise program utilizing provided written and visual instructions from therapist. 2. [place] will report ability to engage in bird watching > 30 minutes without reported difficulties visually tracking the birds' and their movements (on 2+ separate dates). GOALS MET Carolina will demonstrate improved visual scanning abilities, as evidenced by ability to correctly identify 35-36 out of 36 single letter targets with visual scanning activity without complaints of visual fatigue. *MET 01/17/23 Carolina will report ability to read and comprehend the headlines of preferred newspaper, 6 out of 7 days of a week, without need for visual breaks and/or reported difficulties understanding context of headline articles. *MET 01/17/23 - Treatment 1 Descriptor Visual scanning. - Assessment Assessment of Improvement Carolina reports ability to read all headlines of newspaper w/ understanding of content without complaints of fatigue; he is currently reportedly reading 30 to 45 minutes without difficulty. Carolina presented with improved visual scanning abilities; able to correctly identify 74 out of 74 single digit targets without use of contralateral hand to support visual scanning and/or use of formation of line under targets. No rest breaks were needed for execution of this activity. Carolina has already met 2 established OT goals. Carolina was observed to be inconsistent w/ ability to identify stimulus in the right lower quadrant/identifying stimulus in the right periphery. Report of practicing driving in parking lot w/ ; recommended to have appts w/ opthalmologist and PCP prior to returning to driving. Further diagnostic testing is recommended by neuro opthalmologist. Patient reports being referred to [facility]. Overall, good session. Informed of need for new referral from PCP to address concerns for trigger finger. Recommend continuing w/ visual scanning w/ use of periphery, head turns as compensatory strategy, and ceasing w/ horizontal VOR w/ visual fixation at center. - Plan Therapy Recommendations Continue with Current Program, Advance per Rehabilitation Protocol
--- NOTE | 2023-01-26 16:00 | OT.OPPOC ---
Physical, Occupational & Speech Therapy At [facility] Mauri Petersen [id number] 1950 Visit Care Team Role Provider Type Grant Moreno MD Family Provider Physician Primary Care Provider Address: [address] [place] [address], [id number] Jennifer Smith MD Attending Provider Non-Staff Referring Provider Address: [address] [place] [address], [id number] Occupational Therapy Plan of Care OT Outpatient Adult Evaluation Start: 01/10/23 15:14 Freq: Status: Active Protocol: Document 01/10/23 15:14 AMS (Rec: 01/10/23 15:53 AMS [id number]) General Information - Adult Visit Information Visit Number 07/25 Plan of Care Dates 01/10/23 - 03/07/23 Insurance Information Medicare Session Time Visit Start Time 10:45 Visit Stop Time 11:45 Total Visit Minutes 60 Setting Treatment Setting Outpatient Care Visit Type Note Type Initial Evaluation Identification Identification Confirmed Yes Identification Confirmed By Self Goals Treatment Treatment Discussion of findings. Discussion of recommended exercises. Shelter Goals Shrimp Peeling Machine Tender Goals 1. Carolina will be modified independent with execution of home exercise program utilizing provided written and visual instructions from therapist. 2. [place] will demonstrate improved visual scanning abilities, as evidenced by ability to correctly identify 35-36 out of 36 single letter targets with visual scanning activity without complaints of visual fatigue. 3. Carolina will report ability to read and comprehend the headlines of preferred newspaper, 6 out of 7 days of a week, without need for visual breaks and/or reported difficulties understanding context of headline articles. 4. Carolina will report ability to engage in bird watching > 30 minutes without reported difficulties visually tracking the birds' and their movements (on 2+ separate dates). Assessment/Plan Assessment Treatment Assessment Carolina is a 72 year-old referred to outpatient OT d/t L RESIDENTIAL BUILDER infarct. Medical History : STM deficits; visual deficits; R homonymous hemianopsia; h/o ocular migraines; cataract surgery ( approx 7 months ago); L eye strabismus; radiofrequency ablation (November 2022) secondary to back pain (receiving outpatient PT); L CTS w/ h/o treatment (use of night splint and instructed in exercises). Reportedly informed that eyes independently focus (since he was a child). 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 Instructed in VOR, head turning L <-> R w/ visual fixation on fixed target at midline x 30 seconds from OT as exercise. Carolina reportedly resides w/ his in a 1 story home; he walks approx 40 minutes per day with his (w/ PLOF 50 to 60 minutes). Presents without use of mobility AE. Denies any fine motor/ADL deficits. Reported difficulties including reading , visually scanning, and driving. R hand dominant w/ handwriting legible w/ smooth formation of shapes/letters (w / pen resting on 3rd digit and 2nd digit and thumb positioned on pen). QuickDASH UE Outcome Measure Score = 20. 45; Sports/Performing Arts Module = 0.00. Denial of numbness/tingling of B UEs besides CTS of L UE. No indication of pain/discomfort on Hand Pain Assessment Grid. Denial of dizziness and/or double vision. (-) observed bumping into gallagher/objects in his environment w/ body and/or UE. Observed to sit at midline of mat and width chair . Able to locate personal items with efficiency, including hat, pen, extra layers of clothing. Utilization of finger w/ paper tasks w/ left -> right, right -> left alt visual scanning approach. Able to correctly identify 26 out of 36 single letter targets first trial and 31 out of 36 single letter targets second trial. (+) 3 errors observed w/ visual saccade task horizontally x 10 rows alt verbal identification of letters ( outside -> inside) x 2 trials; (-) errors observed w/ visual saccade task initial trial when completed vertically; 3 errors observed w/ visual saccade task 2nd trial completed vertically. With number based visual scanning task, able to correctly identify 7 single digit target numbers without spacing between rows of numbers. (+) wearing of glasses w/ completion of assessments w/ clinician and w/ completion of paperwork. Reads primarily on zoltan or ipad; also enjoys reading newspaper (headlines). Reports fatigue w/ reading w/ noted fatigue d/t decreased comprehension of read material ; report of having to re-read lines/materials. Report of going to bed early and frequent napping secondary to fatigue. Carolina reported that he is waiting to be seen by neuro opthalmologist (in [place]) ; appt has yet to be scheduled . Carolina presents w/ inconsistencies w/ visual scanning and visual saccades when moving eyes between targets in horizontal and vertical fashions; he reports visual fatigue and decreased ability to actively participate in reading tasks, which is a meaningful activity for him. He does have h/o ocular migraines and cataract surgery and L eye strabismus w / report of ability to eyes to independently focus on visual targets since being a child. Recommendation to be evaluated by neuro opthalmologist prior to returning to driving w/ also discussion w/ PCP given that he has been followed medically by Dr. Moreno for the last several years; patient also has follow-up w/ Neurologist this Sunday. Outpatient OT is recommended to identified areas to support Carolina's ability to successfully engage in meaningful activities in a variety of environments. Home Exercise Program 01/10/23 = Rec visual tracking birds when stationary without movement of head (given preferred activity). Also recommended visually scanning environment without movement of head when engaged in daily walks thru town w/ . Plan Length of treatment (weeks) 8 Plan of Care Start Date 01/10/23 Plan of Care End Date 03/07/23 Treatment Frequency Once a Week Therapeutic Contents Client Education,Cognitive Skills Development,Functional Activities,Home Exercise Program,Education,Self-Care, Therapeutic Activities, Therapeutic Exercises Functional Wrist/Hand Scan Hand Side Sensory Assessment Sensory Profile2 OT Outpatient Treatment Note - Adult Start: 01/10/23 15:14 Freq: Status: Active Protocol: Document 01/26/23 16:00 [facility] (Rec: 02/01/23 16:25 [facility] [id number]) OT Outpatient Adult Treatment Note Session Time Visit Start Time 10:45 Visit Stop Time 11:40 Total Visit Minutes 55 Visit Information Visit Number 07/25 Plan of Care Dates 01/26/23 - 03/09/23 Insurance Information Medicare Setting Treatment Setting Outpatient Care Visit Type Note Type Re-Evaluation General Information General Information Carolina obtained a new referral to outpatient OT secondary to CTS of left upper limb as of . Carolina is a 72 year-old referred to outpatient OT d/t L RESIDENTIAL BUILDER infarct. Medical History: STM deficits; visual deficits; R homonymous hemianopsia; h/o ocular migraines; cataract surgery ( approx 7 months ago); L eye strabismus; radiofrequency ablation (November 2022) secondary to back pain (receiving outpatient PT); L CTS w/ h/o treatment (use of night splint and instructed in exercises). Reportedly informed that eyes independently focus (since he was a child). 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 Instructed in VOR, head turning L <-> R w/ visual fixation on fixed target at midline x 30 seconds from OT as exercise. - Subjective Identification Type Name Identification Reconciled With Medical Record Observations Med documentation obtained from patient; to be scanned by front office java developer staff when able to do so into EMR. Patient/Caregiver Compliance with Home Excellent Exercise Program - Objective Objective Measurements Please refer to below for progress made towards meeting established OT goals: 01/26/23 = 0-73 degrees active L wrist ext vs 0-60 degrees active R wrist ext; 0-60 degrees active L wrist flex vs 0-60 degrees active R wrist flex; 0-20 degrees active L wrist UD vs 0-30 degrees active R wrist UD; 0-15 degrees active L wrist RD vs 0 -15 degrees active R wrist [address]. Report of tingling of the thumb and index finger of the L hand w/ Tinel's and Reverse Phalen's Test. Reports having rigid L volar wrist brace that he wears at night. Short Term Goals 1. Carolina will present with improved active range of motion of the left wrist; he will demonstrate 0-30 degrees active L wrist UD. Shrimp Peeling Machine Tender Goals 1. Carolina will be modified independent with execution of home exercise program utilizing provided written and visual instructions from therapist. 2. Carolina will report ability to engage in bird watching > 30 minutes without reported difficulties visually tracking the birds' and their movements (on 2+ separate dates). GOALS MET Carolina will demonstrate improved visual scanning abilities, as evidenced by ability to correctly identify 35-36 out of 36 single letter targets with visual scanning activity without complaints of visual fatigue. *MET 01/17/23 Carolina will report ability to read and comprehend the headlines of preferred newspaper, 6 out of 7 days of a week, without need for visual breaks and/or reported difficulties understanding context of headline articles. *MET 01/17/23 - Treatment 2 Descriptor Instructed in CTS home exercise program. 1 Descriptor Reviewed visual scanning home exercise program. - Assessment Assessment of Improvement New referral for OT obtained to address CTS; report of wearing rigid left volar wrist brace at night, decreased active right wrist ext and decreased active L wrist UD. Tingling reported w/ Tinel's and reverse Phalen's test relative to the L thumb and 2nd digit. Upgraded HEP to address new concerns. Reviewed visual scanning exercises w/ report of upcoming evaluation at [facility]. Has been driving to and from [email or web address] w/ the radio off and reading approximately 45 minutes w/ font increased to 1 size larger. Home Exercise Program 01/26/23 = Instructed in self myofasical release carpal ligament at wall. Instructed in median nerve glide. Instructed in tendon glide exercises w/ focus on returning to neutral between each tendon glide. Instructed in passive wrist flex/ext w/ elbow in ext and forearm in supination. Visual instructions were provided and exercises were reviewed in treatment session. All questions were answered. - Plan Therapy Recommendations Continue with Current Program, Advance per Rehabilitation Protocol Comment 6 weeks Frequency of Treatment Once a Week Therapeutic Contents Active Range of Motion,Client Education,Functional Activities,Home Exercise Program,Joint Protection, Manual Therapy,Education,Self- Care,Stretching/Flexibility Activities,Therapeutic Activities,Therapeutic Exercises,Modalities Additional Areas of Treatment Heat/Ice/Contrast baths/US/ paraffin Electronically Signed by: Shelia Topete, OT 02/01/23 5278 If you are in agreement with this Plan of Care, please return a signed and dated copy. I have reviewed this Plan of Care and certify that the skilled therapy services above are required to meet the patient?s needs. Physician Signature Date Printed Name and Credentials Clinical Instructor Signature Printed Name and Credentials
--- NOTE | 2023-01-26 16:00 | OT.OPPOC ---
Physical, Occupational & Speech Therapy At [facility] Mauri Petersen [id number] 1950 Visit Care Team Role Provider Type Grant Moreno MD Family Provider Physician Primary Care Provider Address: [address] [place] [address], [phone] Jennifer Smith MD Attending Provider Non-Staff Referring Provider Address: [address] [place] [address], [phone] Occupational Therapy Plan of Care OT Outpatient Adult Evaluation Start: 01/10/23 15:14 Freq: Status: Active Protocol: Document 01/10/23 15:14 AMS (Rec: 01/10/23 15:53 AMS [id number]) General Information - Adult Visit Information Visit Number 07/25 Plan of Care Dates 01/10/23 - 03/07/23 Insurance Information Medicare Session Time Visit Start Time 10:45 Visit Stop Time 11:45 Total Visit Minutes 60 Setting Treatment Setting Outpatient Care Visit Type Note Type Initial Evaluation Identification Identification Confirmed Yes Identification Confirmed By Self Goals Treatment Treatment Discussion of findings. Discussion of recommended exercises. Senior Living Goals Signalling And Communications Engineer Goals 1. Carolina will be modified independent with execution of home exercise program utilizing provided written and visual instructions from therapist. 2. Carolina will demonstrate improved visual scanning abilities, as evidenced by ability to correctly identify 35-36 out of 36 single letter targets with visual scanning activity without complaints of visual fatigue. 3. Carolina will report ability to read and comprehend the headlines of preferred newspaper, 6 out of 7 days of a week, without need for visual breaks and/or reported difficulties understanding context of headline articles. 4. Carolina will report ability to engage in bird watching > 30 minutes without reported difficulties visually tracking the birds' and their movements (on 2+ separate dates). 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 Medical History : STM deficits; visual deficits; R homonymous hemianopsia; h/o ocular migraines; cataract surgery ( approx 7 months ago); L eye strabismus; radiofrequency ablation (November 2022) secondary to back pain (receiving outpatient PT); L CTS w/ h/o treatment (use of night splint and instructed in exercises). Reportedly informed that eyes independently focus (since he was a child). 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 Instructed in VOR, head turning L <-> R w/ visual fixation on fixed target at midline x 30 seconds from OT as exercise. Carolina reportedly resides w/ his in a 1 story home; he walks approx 40 minutes per day with his (w/ PLOF 50 to 60 minutes). Presents without use of mobility AE. Denies any fine motor/ADL deficits. Reported difficulties including reading , visually scanning, and driving. R hand dominant w/ handwriting legible w/ smooth formation of shapes/letters (w / pen resting on 3rd digit and 2nd digit and thumb positioned on pen). QuickDASH UE Outcome Measure Score = 20. 45; Sports/Performing Arts Module = 0.00. Denial of numbness/tingling of B UEs besides CTS of L UE. No indication of pain/discomfort on Hand Pain Assessment Grid. Denial of dizziness and/or double vision. (-) observed bumping into gallagher/objects in his environment w/ body and/or UE. Observed to sit at midline of mat and width chair . Able to locate personal items with efficiency, including hat, pen, extra layers of clothing. Utilization of finger w/ paper tasks w/ left -> right, right -> left alt visual scanning approach. Able to correctly identify 26 out of 36 single letter targets first trial and 31 out of 36 single letter targets second trial. (+) 3 errors observed w/ visual saccade task horizontally x 10 rows alt verbal identification of letters ( outside -> inside) x 2 trials; (-) errors observed w/ visual saccade task initial trial when completed vertically; 3 errors observed w/ visual saccade task 2nd trial completed vertically. With number based visual scanning task, able to correctly identify 7 single digit target numbers without spacing between rows of numbers. (+) wearing of glasses w/ completion of assessments w/ clinician and w/ completion of paperwork. Reads primarily on zoltan or ipad; also enjoys reading newspaper (headlines). Reports fatigue w/ reading w/ noted fatigue d/t decreased comprehension of read material ; report of having to re-read lines/materials. Report of going to bed early and frequent napping secondary to fatigue. Carolina reported that he is waiting to be seen by neuro opthalmologist (in [place]) ; appt has yet to be scheduled . Carolina presents w/ inconsistencies w/ visual scanning and visual saccades when moving eyes between targets in horizontal and vertical fashions; he reports visual fatigue and decreased ability to actively participate in reading tasks, which is a meaningful activity for him. He does have h/o ocular migraines and cataract surgery and L eye strabismus w / report of ability to eyes to independently focus on visual targets since being a child. Recommendation to be evaluated by neuro opthalmologist prior to returning to driving w/ also discussion w/ PCP given that he has been followed medically by Dr. Moreno for the last several years; patient also has follow-up w/ Neurologist this Sunday. Outpatient OT is recommended to identified areas to support Carolina's ability to successfully engage in meaningful activities in a variety of environments. Home Exercise Program 01/10/23 = Rec visual tracking birds when stationary without movement of head (given preferred activity). Also recommended visually scanning environment without movement of head when engaged in daily walks thru town w/ . Plan Length of treatment (weeks) 8 Plan of Care Start Date 01/10/23 Plan of Care End Date 03/07/23 Treatment Frequency Once a Week Therapeutic Contents Client Education,Cognitive Skills Development,Functional Activities,Home Exercise Program,Education,Self-Care, Therapeutic Activities, Therapeutic Exercises Functional Wrist/Hand Scan Hand Side Sensory Assessment Sensory Profile2 OT Outpatient Treatment Note - Adult Start: 01/10/23 15:14 Freq: Status: Active Protocol: Document 01/26/23 16:00 [facility] (Rec: 02/01/23 16:25 [facility] [id number]) OT Outpatient Adult Treatment Note Session Time Visit Start Time 10:45 Visit Stop Time 11:40 Total Visit Minutes 55 Visit Information Visit Number 07/25 Plan of Care Dates 01/26/23 - 03/09/23 Insurance Information Medicare Setting Treatment Setting Outpatient Care Visit Type Note Type Re-Evaluation General Information General Information Carolina obtained a new referral to outpatient OT secondary to CTS of left upper limb as of . 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 Medical History: STM deficits; visual deficits; R homonymous hemianopsia; h/o ocular migraines; cataract surgery ( approx 7 months ago); L eye strabismus; radiofrequency ablation (November 2022) secondary to back pain (receiving outpatient PT); L CTS w/ h/o treatment (use of night splint and instructed in exercises). Reportedly informed that eyes independently focus (since he was a child). 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 Instructed in VOR, head turning L <-> R w/ visual fixation on fixed target at midline x 30 seconds from OT as exercise. - Subjective Identification Type Name Identification Reconciled With Medical Record Observations Med documentation obtained from patient; to be scanned by front desk team member staff when able to do so into EMR. Patient/Caregiver Compliance with Home Excellent Exercise Program - Objective Objective Measurements Please refer to below for progress made towards meeting established OT goals: 01/26/23 = 0-73 degrees active L wrist ext vs 0-60 degrees active R wrist ext; 0-60 degrees active L wrist flex vs 0-60 degrees active R wrist flex; 0-20 degrees active L wrist UD vs 0-30 degrees active R wrist UD; 0-15 degrees active L wrist RD vs 0 -15 degrees active R wrist [address]. Report of tingling of the thumb and index finger of the L hand w/ Tinel's and Reverse Phalen's Test. Reports having rigid L volar wrist brace that he wears at night. Short Term Goals 1. Carolina will present with improved active range of motion of the left wrist; he will demonstrate 0-30 degrees active L wrist UD. Signalling And Communications Engineer Goals 1. Carolina will be modified independent with execution of home exercise program utilizing provided written and visual instructions from therapist. 2. Carolina will report ability to engage in bird watching > 30 minutes without reported difficulties visually tracking the birds' and their movements (on 2+ separate dates). GOALS MET Carolina will demonstrate improved visual scanning abilities, as evidenced by ability to correctly identify 35-36 out of 36 single letter targets with visual scanning activity without complaints of visual fatigue. *MET 01/17/23 Carolina will report ability to read and comprehend the headlines of preferred newspaper, 6 out of 7 days of a week, without need for visual breaks and/or reported difficulties understanding context of headline articles. *MET 01/17/23 - Treatment 2 Descriptor Instructed in CTS home exercise program. 1 Descriptor Reviewed visual scanning home exercise program. - Assessment Assessment of Improvement New referral for OT obtained to address CTS; report of wearing rigid left volar wrist brace at night, decreased active right wrist ext and decreased active L wrist UD. Tingling reported w/ Tinel's and reverse Phalen's test relative to the L thumb and 2nd digit. Upgraded HEP to address new concerns. Reviewed visual scanning exercises w/ report of upcoming evaluation at [facility] Has been driving to and from [employer] w/ the radio off and reading approximately 45 minutes w/ font increased to 1 size larger. Home Exercise Program 01/26/23 = Instructed in self myofasical release carpal ligament at wall. Instructed in median nerve glide. Instructed in tendon glide exercises w/ focus on returning to neutral between each tendon glide. Instructed in passive wrist flex/ext w/ elbow in ext and forearm in supination. Visual instructions were provided and exercises were reviewed in treatment session. All questions were answered. - Plan Therapy Recommendations Continue with Current Program, Advance per Rehabilitation Protocol Comment 6 weeks Frequency of Treatment Once a Week Therapeutic Contents Active Range of Motion,Client Education,Functional Activities,Home Exercise Program,Joint Protection, Manual Therapy,Education,Self- Care,Stretching/Flexibility Activities,Therapeutic Activities,Therapeutic Exercises,Modalities Additional Areas of Treatment Heat/Ice/Contrast baths/US/ paraffin Electronically Signed by: Shelia Topete, OT 02/01/23 8090 If you are in agreement with this Plan of Care, please return a signed and dated copy. I have reviewed this Plan of Care and certify that the skilled therapy services above are required to meet the patient?s needs. Physician Signature Date Printed Name and Credentials Clinical Instructor Signature Printed Name and Credentials
--- NOTE | 2023-01-31 16:00 | OT.OP.TRT ---
Visit Care Team Role Provider Type Grant Moreno MD Family Provider Physician Primary Care Provider Specialty: Internal Medicine Address: [address] [place] [address], [id number] Email: [email or web address] Jennifer Smith MD Attending Provider Non-Staff Referring Provider Specialty: Physical Medicine and Rehab Address: [address] [place] [address], [id number] Email: Occupational Therapy Treatment Note OT Outpatient Treatment Note - Adult Start: 01/10/23 15:14 Freq: Status: Active Protocol: Document 01/31/23 16:00 AMS (Rec: 02/01/23 16:35 AMS [id number]) OT Outpatient Adult Treatment Note Session Time Visit Start Time 10:45 Visit Stop Time 11:35 Total Visit Minutes 50 Visit Information Visit Number 08/[id number] Plan of Care Dates 01/26/23 - 03/09/23 Insurance Information Medicare Setting Treatment Setting Outpatient Care Visit Type Note Type Treatment Note General Information General Information Carolina obtained a new referral to outpatient OT secondary to CTS of left upper limb as of . Carolina is a 72 year-old referred to outpatient OT d/t L SOCIAL SCIENCE MANAGER infarct. Medical History: STM deficits; visual deficits; R homonymous hemianopsia; h/o ocular migraines; cataract surgery ( approx 7 months ago); L eye strabismus; radiofrequency ablation (November 2022) secondary to back pain (receiving outpatient PT); L CTS w/ h/o treatment (use of night splint and instructed in exercises). Reportedly informed that eyes independently focus (since he was a child). 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 Instructed in VOR, head turning L <-> R w/ visual fixation on fixed target at midline x 30 seconds from OT as exercise. - Subjective Identification Type Name Identification Reconciled With Medical Record Observations Report of numbness and tingling while sleeping; inconsistent w/ wearing the brace. Patient/Caregiver Compliance with Home Excellent Exercise Program - Objective Objective Measurements Please refer to below for progress made towards meeting established OT goals: 01/26/23 = 0-73 degrees active L wrist ext vs 0-60 degrees active R wrist ext; 0-60 degrees active L wrist flex vs 0-60 degrees active R wrist flex; 0-20 degrees active L wrist UD vs 0-30 degrees active R wrist UD; 0-15 degrees active L wrist RD vs 0 -15 degrees active R wrist [address]. Report of tingling of the thumb and index finger of the L hand w/ Tinel's and Reverse Phalen's Test. Reports having rigid L volar wrist brace that he wears at night. Short Term Goals 1. Carolina will present with improved active range of motion of the left wrist; he will demonstrate 0-30 degrees active L wrist UD. Snf Goals 1. Carolina will be modified independent with execution of home exercise program utilizing provided written and visual instructions from therapist. 2. Carolina will report ability to engage in bird watching > 30 minutes without reported difficulties visually tracking the birds' and their movements (on 2+ separate dates). GOALS MET Carolina will demonstrate improved visual scanning abilities, as evidenced by ability to correctly identify 35-36 out of 36 single letter targets with visual scanning activity without complaints of visual fatigue. *MET 01/17/23 Carolina will report ability to read and comprehend the headlines of preferred newspaper, 6 out of 7 days of a week, without need for visual breaks and/or reported difficulties understanding context of headline articles. *MET 01/17/23 - Treatment 2 Descriptor Reviewed CTS home exercise program. 1 Descriptor Reviewed visual scanning home exercise program. - Assessment Assessment of Improvement Reviewed CTS home exercise program; all questions were answered. Discussed use of brace to discourage compression of median nerve w/ wrist flexion. Improved eye- teaming noted w/ visual scanning x 4-5 cycles for approx 10-15 seconds. Report of visual fatigue post completion of exercise; discussed resting eyes via use of palms (resting them). Report of reading 45 to 1 hour on zoltan and ipad; no cognitive concerns w/ math calculations relative to bill paying. Report of driving for past 10 days various lengths w / radio on (except for when backing out/parallel parking). Will be assessed at [facility] next week. Home Exercise Program 01/26/23 = Instructed in self myofasical release carpal ligament at wall. Instructed in median nerve glide. Instructed in tendon glide exercises w/ focus on returning to neutral between each tendon glide. Instructed in passive wrist flex/ext w/ elbow in ext and forearm in supination. Visual instructions were provided and exercises were reviewed in treatment session. All questions were answered. - Plan Therapy Recommendations Continue with Current Program, Advance per Rehabilitation Protocol
--- NOTE | 2023-02-28 11:17 | OT.OP.DC ---
Visit Care Team Role Provider Type Grant Moreno MD Family Provider Physician Primary Care Provider Address: [address] [place] [address], [id number] Email: [email or web address] Jennifer Smith MD Attending Provider Non-Staff Referring Provider Address: [address] [place] [address], [id number] Email: OT Outpatient OT Outpatient Adult Evaluation Start: 01/10/23 15:14 Freq: Status: Active Protocol: Document 01/10/23 15:14 AMS (Rec: 01/10/23 15:53 AMS [id number]) General Information - Adult Visit Information Visit Number 07/25 Plan of Care Dates 01/10/23 - 03/07/23 Insurance Information Medicare Session Time Visit Start Time 10:45 Visit Stop Time 11:45 Total Visit Minutes 60 Setting Treatment Setting Outpatient Care Visit Type Note Type Initial Evaluation Identification Identification Confirmed Yes Identification Confirmed By Self Goals Treatment Treatment Discussion of findings. Discussion of recommended exercises. 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 Carolina will be modified independent with execution of home exercise program utilizing provided written and visual instructions from therapist. 2. Carolina will demonstrate improved visual scanning abilities, as evidenced by ability to correctly identify 35-36 out of 36 single letter targets with visual scanning activity without complaints of visual fatigue. 3. Carolina will report ability to read and comprehend the headlines of preferred newspaper, 6 out of 7 days of a week, without need for visual breaks and/or reported difficulties understanding context of headline articles. 4. Carolina will report ability to engage in bird watching > 30 minutes without reported difficulties visually tracking the birds' and their movements (on 2+ separate dates). 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 Medical History : STM deficits; visual deficits; R homonymous hemianopsia; h/o ocular migraines; cataract surgery ( approx 7 months ago); L eye strabismus; radiofrequency ablation (November 2022) secondary to back pain (receiving outpatient PT); L CTS w/ h/o treatment (use of night splint and instructed in exercises). Reportedly informed that eyes independently focus (since he was a child). 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 Instructed in VOR, head turning L <-> R w/ visual fixation on fixed target at midline x 30 seconds from OT as exercise. Carolina reportedly resides w/ his in a 1 story home; he walks approx 40 minutes per day with his (w/ PLOF 50 to 60 minutes). Presents without use of mobility AE. Denies any fine motor/ADL deficits. Reported difficulties including reading , visually scanning, and driving. R hand dominant w/ handwriting legible w/ smooth formation of shapes/letters (w / pen resting on 3rd digit and 2nd digit and thumb positioned on pen). QuickDASH UE Outcome Measure Score = 20. 45; Sports/Performing Arts Module = 0.00. Denial of numbness/tingling of B UEs besides CTS of L UE. No indication of pain/discomfort on Hand Pain Assessment Grid. Denial of dizziness and/or double vision. (-) observed bumping into gallagher/objects in his environment w/ body and/or UE. Observed to sit at midline of mat and width chair . Able to locate personal items with efficiency, including hat, pen, extra layers of clothing. Utilization of finger w/ paper tasks w/ left -> right, right -> left alt visual scanning approach. Able to correctly identify 26 out of 36 single letter targets first trial and 31 out of 36 single letter targets second trial. (+) 3 errors observed w/ visual saccade task horizontally x 10 rows alt verbal identification of letters ( outside -> inside) x 2 trials; (-) errors observed w/ visual saccade task initial trial when completed vertically; 3 errors observed w/ visual saccade task 2nd trial completed vertically. With number based visual scanning task, able to correctly identify 7 single digit target numbers without spacing between rows of numbers. (+) wearing of glasses w/ completion of assessments w/ clinician and w/ completion of paperwork. Reads primarily on zoltan or ipad; also enjoys reading newspaper (headlines). Reports fatigue w/ reading w/ noted fatigue d/t decreased comprehension of read material ; report of having to re-read lines/materials. Report of going to bed early and frequent napping secondary to fatigue. Carolina reported that he is waiting to be seen by neuro opthalmologist (in [place]) ; appt has yet to be scheduled . Carolina presents w/ inconsistencies w/ visual scanning and visual saccades when moving eyes between targets in horizontal and vertical fashions; he reports visual fatigue and decreased ability to actively participate in reading tasks, which is a meaningful activity for him. He does have h/o ocular migraines and cataract surgery and L eye strabismus w / report of ability to eyes to independently focus on visual targets since being a child. Recommendation to be evaluated by neuro opthalmologist prior to returning to driving w/ also discussion w/ PCP given that he has been followed medically by Dr. Moreno for the last several years; patient also has follow-up w/ Neurologist this Sunday. Outpatient OT is recommended to identified areas to support Carolina's ability to successfully engage in meaningful activities in a variety of environments. Home Exercise Program 01/10/23 = Rec visual tracking birds when stationary without movement of head (given preferred activity). Also recommended visually scanning environment without movement of head when engaged in daily walks thru town w/ . Plan Length of treatment (weeks) 8 Plan of Care Start Date 01/10/23 Plan of Care End Date 03/07/23 Treatment Frequency Once a Week Therapeutic Contents Client Education,Cognitive Skills Development,Functional Activities,Home Exercise Program,Education,Self-Care, Therapeutic Activities, Therapeutic Exercises Functional Wrist/Hand Scan Hand Side Sensory Assessment Sensory Profile2 OT Outpatient Treatment Note - Adult Start: 01/10/23 15:14 Freq: Status: Active Protocol: Document 02/28/23 11:10 [facility] (Rec: 02/28/23 11:17 [facility] [id number]) OT Outpatient Adult Treatment Note Session Time Visit Start Time 10:45 Visit Stop Time 11:00 Total Visit Minutes 15 Visit Information Visit Number 3 Plan of Care Dates 01/26/23 - 03/09/23 Insurance Information Medicare Setting Treatment Setting Outpatient Care Visit Type Note Type Treatment Note General Information General Information Carolina obtained a new referral to outpatient OT secondary to CTS of left upper limb as of . 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 Medical History: STM deficits; visual deficits; R homonymous hemianopsia; h/o ocular migraines; cataract surgery ( approx 7 months ago); L eye strabismus; radiofrequency ablation (November 2022) secondary to back pain (receiving outpatient PT); L CTS w/ h/o treatment (use of night splint and instructed in exercises). Reportedly informed that eyes independently focus (since he was a child). 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 Instructed in VOR, head turning L <-> R w/ visual fixation on fixed target at midline x 30 seconds from OT as exercise. - Subjective Identification Type Name Identification Reconciled With Medical Record Observations Carolina reports that he has a follow-up w/ neurologist post- stroke tomorrow 03/01/23; he stated that he has an appointment w/ UE administrative specialist scheduled in April. Symptoms/change in sensation has occurred w/ grasping of steering wheel (w/ denial of wrist flexion), taking of b/p proximal to elbow, when walking, and when completing distal UEs supine without elbow flex. Report of intent to return to PT w/ follow-up re: back exercises; report of PT previously indicating impingement occurring at neck. - Objective Objective Measurements Please refer to below for progress made towards meeting established OT goals: 01/26/23 = 0-73 degrees active L wrist ext vs 0-60 degrees active R wrist ext; 0-60 degrees active L wrist flex vs 0-60 degrees active R wrist flex; 0-20 degrees active L wrist UD vs 0-30 degrees active R wrist UD; 0-15 degrees active L wrist RD vs 0 -15 degrees active R wrist [address]. Report of tingling of the thumb and index finger of the L hand w/ Tinel's and Reverse Phalen's Test. Reports having rigid L volar wrist brace that he wears at night. Short Term Goals GOALS D/C 02/28/23 1. Carolina will present with improved active range of motion of the left wrist; he will demonstrate 0-30 degrees active L wrist UD. 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 *MET 01/17/23 Carolina will report ability to read and comprehend the headlines of preferred newspaper, 6 out of 7 days of a week, without need for visual breaks and/or reported difficulties understanding context of headline articles. *MET 01/17/23 Carolina will report ability to engage in bird watching > 30 minutes without reported difficulties visually tracking the birds' and their movements (on 2+ separate dates). *MET 02/28/23 Carolina will be modified independent with execution of home exercise program utilizing provided written and visual instructions from therapist. *MET 02/28/23. Rec follow-up w/ PCP, UE administrative specialist and outpatient PT - Treatment 1 Descriptor Reviewed HEP/recommendations. - Assessment Assessment of Improvement Carolina reports that he has a follow-up w/ neurologist post- stroke tomorrow 03/01/23; he stated that he has an appointment w/ UE administrative specialist scheduled in April. Symptoms/change in sensation has occurred w/ grasping of steering wheel (w/ denial of wrist flexion), taking of b/p proximal to elbow, when walking, and when completing distal UEs supine without elbow flex. Report of intent to return to PT w/ follow-up re: back exercises; report of PT previously indicating impingement occurring at neck. Based on symptoms/complaints, rec d/c from outpatient OT w/ follow- up w/ PCP if new referral needed to UE administrative specialist, as well as follow- up w/ PT given scheduled upcoming appt in re: back exercises. - Plan Therapy Recommendations Discharge from Occupational Therapy Additional Therapy Recommendations Rec follow-up w/ PCP, UE ortho specialist, PT
== END 2023-03-02 10:28 | disposition home or self-care (01) ==
LOC: OT 10:45
PROVIDERS: Family Provider Internal Medicine; PCP Internal Medicine; Referring Provider Physical Medicine & Rehabilitation Hospice and Palliative Medicine; Visit Provider Physical Medicine & Rehabilitation Hospice and Palliative Medicine
DX: G56.02 Carpal tunnel syndrome, left upper limb (principal); I63.432 Cerebral infarction due to embolism of left posterior cerebral artery; H53.9 Unspecified visual disturbance; R41.89 Other symptoms and signs involving cognitive functions and awareness; R27.8 Other lack of coordination
CPT/HCPCS: 97110; 97165; 97530

== ENCOUNTER → 2023-04-17 06:34 | Outpatient (CLI) | payer MEDICARE, OTHER, SELFPAY ==
[2022-12-25 10:51] VITALS: BMI 28.0
[2023-04-17 07:28] LABS: Hematocrit 40.3 % (41-53); Hemoglobin 14.2 g/dL (13.5-17.5); Mean Corpuscular HGB Conc 35.3 % (30-36); Mean Corpuscular Hemoglobin 29.5 PG (26-34); Mean Corpuscular Volume 83.8 fL (80-100); Platelet Count 215 X10^3/uL (150-400); Red Blood Cell Count 4.81 X10^6/uL (4.5-5.9); Red Cell Distribution Width 12.9 % (11.6-14.8); White Blood Cell Count 7.9 X10^3/uL (4.5-11.0)
[2023-04-17 07:50] LABS: HEMOLYSIS < 15 (0-50); Iron 106 ug/dL (49-181)
[2023-04-17 07:51] LABS: Alanine Aminotransferase 38 IU/L (<50); Albumin 4.2 g/dL (3.5-5.0); Albumin Globulin Ratio 1.4 (1.0-2.8); Alkaline Phosphatase 121 U/L (38-126); Aspartate Aminotransferase 29 IU/L (17-59); BUN Creatinine Ratio 24.7 (6-22); Bilirubin Total 0.6 mg/dL (0.2-1.3); Blood Urea Nitrogen 24 mg/dL (9-20); Calcium 9.7 mg/dL (8.4-10.2); Carbon Dioxide 28 mmol/L (22-32); Chloride 99 mmol/L (98-107); Estimated Glomerular Filt Rate > 60 mL/min (>60); Glucose 164 mg/dL (80-110); HEMOLYSIS < 15 (0-50); Potassium 3.8 mmol/L (3.4-5.1); Sodium 134 mmol/L (137-145); Total Protein 7.2 g/dL (6.3-8.2)
[2023-04-17 07:55] LABS: Creatinine Urine Random 26.6 mg/dL
[2023-04-17 08:01] LABS: Percent Iron Saturation 25 % (20-50); Total Iron Binding Capacity 417 ug/dL (261-462); Transferrin 312 mg/dL (206-381)
[2023-04-17 08:02] LABS: Microalbumin Urine Random < 0.6 mg/dL (0-1.6)
[2023-04-17 08:03] LABS: Hemoglobin A1C% w Est Avg Glu 6.3 % (4.0-6.0)
[2023-04-17 08:26] LABS: Ferritin 49 ng/mL (18-464)
== END ==
PROVIDERS: Family Provider Internal Medicine; PCP Internal Medicine; Referring Provider Internal Medicine; Visit Provider Internal Medicine
DX: D50.9 Iron deficiency anemia, unspecified (principal); E11.9 Type 2 diabetes mellitus without complications; I67.9 Cerebrovascular disease, unspecified; E11.59 Type 2 diabetes mellitus with other circulatory complications
CPT/HCPCS: 36415; 80053; 82043; 82570; 82728; 83036; 83540; 83550; 85027

== ENCOUNTER → 2023-06-18 06:36 | Outpatient (CLI) | payer MEDICARE, OTHER, SELFPAY ==
[2022-12-25 10:51] VITALS: BMI 28.0
[2023-06-18 08:40] LABS: Alanine Aminotransferase 32 IU/L (<50); Albumin 4.2 g/dL (3.5-5.0); Albumin Globulin Ratio 1.4 (1.0-2.8); Alkaline Phosphatase 113 U/L (38-126); Aspartate Aminotransferase 29 IU/L (17-59); Bilirubin Total 0.8 mg/dL (0.2-1.3); Blood Urea Nitrogen 26 mg/dL (9-20); Carbon Dioxide 27 mmol/L (22-32); Chloride 98 mmol/L (98-107); Estimated Glomerular Filt Rate > 60 mL/min (>60); Glucose 112 mg/dL (80-110); HEMOLYSIS < 15 (0-50); Magnesium 1.9 mg/dL (1.6-2.3); Potassium 3.9 mmol/L (3.4-5.1); Sodium 134 mmol/L (137-145); Total Protein 7.2 g/dL (6.3-8.2)
[2023-06-21 09:49] LABS: Cholesterol, Total 144 mg/dL (100-199); HDL-Cholesterol 48 mg/dL (>39); HDL-Particle (Total) 34.7 umol/L (>=30.5); Historical Reading Comment: (.); LDL Particle 757 nmol/L (<1000); LDL Size 20.8 nm (>20.5); LDL-Cholsterol 65 mg/dL (0-99); LP-IR Score 61 (<=45); Small LDL- Particle 313 nmol/L (<=527); Triglycerides 186 mg/dL (0-149)
== END ==
PROVIDERS: Family Provider Internal Medicine; PCP Internal Medicine; Referring Provider Specialist; Visit Provider Specialist
DX: I10 Essential (primary) hypertension (principal); E78.00 Pure hypercholesterolemia, unspecified
CPT/HCPCS: 36415; 80053; 80061; 83704; 83735

== ENCOUNTER 2023-06-24 00:10 | Emergency (ER) | payer MEDICARE, OTHER, SELFPAY ==
[2022-12-25 10:51] VITALS: BMI 28.0
[2023-06-24 00:19] VITALS: BP 161/72; PULSE 98; RESP 15; TEMP 36.8; O2SAT 97; BMI 26.6
--- NOTE | 2023-06-24 00:26 | DI.CT.S_ITS ---
PROCEDURE: CT HEAD/BRAIN WO CON INDICATIONS: Carlos JACK FEELS WEIRD X 3DAYS TECHNIQUE: Noncontrast 4.5 mm thick angled axial sections acquired from the foramen magnum to the vertex, with coronal and sagittal reformats. For radiation dose reduction, the following was used: automated exposure control, adjustment of mA and/or kV according to patient size. COMPARISON: [facility], CT, CT HEAD/BRAIN WO CON, 12/25/2022, 7:29. [facility], CT, HEAD WITHOUT CONTRAST, 11/07/2015, 0:44. FINDINGS: Image quality: Excellent. CSF spaces: Basal cisterns are patent. No extra-axial fluid collections. The ventricles are symmetric in size and shape. Brain: No intracranial bleeds or masses. There is cerebral volume loss for age, with resultant ventricular and sulcal prominence. There are periventricular and deep white matter chronic small vessel ischemic changes. There is intracranial internal carotid artery atherosclerosis. Skull and face: Calvarium and visualized facial bones appear intact, without suspicious lesions. Sinuses: Visualized sinuses and mastoids are clear. IMPRESSION: No acute intracranial pathology. Dictated by: Chente Woo M.D. on 06/24/2023 at 1:21 Approved by: Chente Woo M.D. on 06/24/2023 at 1:21
--- NOTE | 2023-06-24 00:46 | ED_ITS ---
HPI - Headache General Chief Complaint: Headache Stated Complaint: pain all through head/back pain 3days/r hand weird Time Seen by Provider: 06/24/23 00:11 Mode of arrival: Ambulatory History of Present Illness HPI Narrative: 73-year-old male with history of CVA with no residual deficits, hypertension, chronic back pain, migraine headaches presents by private vehicle from home for head pain and a ?odd? sensation in his right hand for 3 days. Patient states th at several days ago he had dental work, but was recovering at home. Three days ago he noticed some pain in his upper thoracic back, it has progressed upwards through his back in his now over his head. It was accompanied by what he describes as a ?cramping? sensation in his hand. Denies numbness, weakness, tingling, other neurologic complaints. He states that since his CVA he is much more cautious about dismissing symptoms that are unusual for him. Related Data Home Medications Medication Instructions Recorded Confirmed aspirin 81 mg tablet,delayed 81 mg PO DAILY 12/14/17 04/26/23 release multivitamin 1 tab PO DAILY 04/19/22 04/26/23 nortriptyline 10 mg capsule 20 mg PO BEDTIME 12/25/22 04/26/23 cholecalciferol (vitamin D3) 50 50 mcg PO DAILY 01/03/23 04/26/23 mcg (2,000 unit) capsule clopidogrel 75 mg tablet 75 mg PO DAILY 01/03/23 04/26/23 cyclosporine 0.09 % eye drops in a 1 drp EYE-BOTH Q12H 01/03/23 04/26/23 dropperette (Cequa) felodipine 5 mg tablet,extended 5 mg PO BID 01/03/23 04/26/23 release 24 hr magnesium glycinate 100 mg tablet 100 mg PO DAILY 01/03/23 04/26/23 (Mag Glycinate) rimegepant 75 mg disintegrating 75 mg PO ONCE PRN 01/03/23 04/26/23 tablet (Nurtec ODT) wheat dextrin [Benefiber Sugar 17.07 g PO DAILY 02/22/23 04/26/23 Free (dextrin)] potassium chloride 10 mEq 10 meq PO BID 04/26/23 04/26/23 tablet,extended release Previous Rx's Medication Instructions Recorded blood sugar diagnostic (Contour #100 ea 07/11/22 Next Test Strips) metoprolol succinate 50 mg 50 mg PO DAILY #90 tabs 09/14/22 tablet,extended release 24 hr finasteride 5 mg tablet 5 mg PO DAILY #90 tabs 11/13/22 metformin 500 mg tablet 500 mg PO BID #180 tabs 11/13/22 atorvastatin 80 mg tablet 80 mg PO BEDTIME #90 tabs 01/03/23 hydrochlorothiazide 25 mg tablet 25 mg PO DAILY #90 tabs 01/03/23 losartan 100 mg tablet 100 mg PO DAILY #90 tabs 01/03/23 empagliflozin 25 mg tablet 25 mg PO DAILY #90 tabs 01/04/23 (Jardiance) hydrocodone 5 mg-acetaminophen 325 1 tab PO BID PRN pain #40 tabs 04/26/23 mg tablet temazepam 15 mg capsule 15 mg PO PRN PRN Sleep #30 caps 04/26/23 Allergies Allergy/AdvReac Type Severity Reaction Status Date / Time lisinopril Allergy Severe angioedema Verified 04/26/23 07:52 iron dextran complex Allergy Mild dextran Verified 04/26/23 07:52 reaction Review of Systems Review of Systems Narrative: Negative except as noted above Patient History Medical History Left carpal tunnel syndrome Meningioma Amblyopia Homonymous hemianopsia following cerebrovascular accident Cerebrovascular disease History of colonic polyps Allergic rhinitis Insomnia secondary to chronic pain Iron deficiency anemia BPH w urinary obs/LUTS GERD without esophagitis Mixed hyperlipidemia Essential hypertension Coronary artery disease Type 2 diabetes mellitus with cardiac complication Osteoarthritis (~2008) Migraines (~1979) Osteopenia (~1999) Disease of spine (~1990) Chronic back pain (~2004) Cervical spine disease (~1990) Mumps Measles Chicken pox Cataracts, bilateral (~2017) Low testosterone (~2010) Asthma GERD (gastroesophageal reflux disease) (~1999) Hyperlipidemia (~1996) HTN (hypertension) (~1996) Anemia (~2004) Surgical History Anesthesia H/O heart artery stent Family History Father Cancer Hypertension Stroke Mother Cancer Hypertension Vascular dementia Grandfather History of heart disease Grandfather Cancer 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 , 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, 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 Smoking Status: Never smoker alcohol intake: current Smoking Status: Never smoker alcohol intake frequency: holidays/special occasions only Substance Use Type: does not use Exam Initial Vital Signs Initial Vital Signs: Vital Signs Temperature 98.3 F 06/24/23 00:19 Pulse Rate 98 H 06/24/23 00:19 Respiratory Rate 15 06/24/23 00:19 Blood Pressure 161/72 H 06/24/23 00:19 Pulse Oximetry 97 06/24/23 00:19 Oxygen Delivery Method Room Air 06/24/23 00:19 Const: Awake, alert, no acute distress, nontoxic appearing Eyes: PERRL, EOMI, conjunctiva normal ENT: Atraumatic, dentition normal, mucous membranes moist Cardiac: regular rate, regular rhythm RESP: unlabored, clear bilaterally, no wheezing GI: Atraumatic, soft, nontender, nondistended, no rebound, no guarding MSK: Atraumatic, full range of motion, pulses equal Skin: Warm, Dry, intact, no rashes Neuro: AO x3, CN II-XII grossly intact, moves all extremities Psych: affect normal, mood normal, not suicidal, not homicidal Course Course Course Narrative: Well appearing patient with 3 days of head pain and an unusual sensation in his hand. He states that last time he had a stroke he believed it was a migraine. Patient had lab work done several days ago, and he does not want repeat lab work at this time. He is here for CT of the brain. NIH is technically 0, owever based on patient history and new pattern headache will CT brain. Toradol IM for headache Orders Ordered: ED Orders 06/24/23 00:26 CT head/brain wo con Stat Discontinued Medications Ketorolac Tromethamine (Ketorolac 30 Mg/Ml Vial) 15 mg IV NOW ONE Stop: 06/24/23 00:48 Ketorolac Tromethamine (Ketorolac 30 Mg/Ml Vial) 30 mg IM NOW ONE Stop: 06/24/23 00:55 Last Admin: 06/24/23 01:00 Dose: 30 mg Reevaluation(s) Reevaluation #1: Patient reports improvement in his head pain after Toradol. CT brain negative for acute findings. Since symptoms have been ongoing for 3 days I would anticipate that any deficit would have shown on the CT by now. Patient reassured by normal CT. He will follow with his PCP next week. Recommended Tylenol for pain as needed. Vital Signs Vital signs: Vital Signs - 8 hr 06/24/23 00:19 06/24/23 01:38 Temperature 98.3 F Pulse Rate 98 H 86 Respiratory Rate 15 17 Blood Pressure 161/72 H 133/67 Pulse Oximetry 97 97 Oxygen Delivery Method Room Air Room Air Discharge Plan Departure Patient Disposition: Home Clinical Impression: Pain, upper back, Head pain Instructions: DI for Thoracic Back Pain Activity Restrictions/Additional Instructions: Your CT today was negative for any sign of acute stroke. Please follow up with your primary care physician. You may take Tylenol and Motrin as needed for pain Prescriptions: No Action (DME) Contour Next Test Strips Strip See Rx Instructions .Route Qty: 100 3RF Rx Instructions: Use to test BS once daily metoprolol succinate 50 mg tablet extended release 24 hr 50 mg PO DAILY Qty: 90 3RF finasteride 5 mg tablet 5 mg PO DAILY Qty: 90 3RF metformin 500 mg tablet 500 mg PO BID Qty: 180 3RF Jardiance 25 mg tablet 25 mg PO DAILY Qty: 90 3RF wheat dextrin [Benefiber Sugar Free (dextrin)] 17.07 g PO DAILY Rx Instructions: 1 tablespoon of benefiber mixed in 8oz of water daily multivitamin Tablet 1 tab PO DAILY Cequa 0.09 % dropperette 1 drp EYE-BOTH Q12H clopidogrel 75 mg tablet 75 mg PO DAILY cholecalciferol (vitamin D3) 50 mcg (2,000 unit) capsule 50 mcg PO DAILY Mag Glycinate 100 mg tablet 100 mg PO DAILY Nurtec ODT 75 mg tablet,disintegrating 75 mg PO ONCE PRN Rx Instructions: as a single dose losartan 100 mg tablet 100 mg PO DAILY Qty: 90 3RF atorvastatin 80 mg tablet 80 mg PO BEDTIME Qty: 90 3RF hydrochlorothiazide 25 mg tablet 25 mg PO DAILY Qty: 90 3RF potassium chloride 10 mEq tablet extended release 10 meq PO BID hydrocodone-acetaminophen 5-325 mg tablet 1 tab PO BID PRN (Reason: pain) Qty: 40 0RF temazepam 15 mg capsule 15 mg PO PRN PRN (Reason: Sleep) Qty: 30 0RF aspirin 81 mg Tablet,Delayed Release (Dr/Ec) 81 mg PO DAILY felodipine 5 mg tablet extended release 24 hr 5 mg PO BID nortriptyline 10 mg capsule 20 mg PO BEDTIME Referrals: Grant Moreno MD [Primary Care Provider] - Stand Alone Forms: Patient Portal/API
[2023-06-24] MEDS: KETOROLAC 30 MG/ML VIAL IM (01:00)
[2023-06-24 01:38] VITALS: BP 133/67; PULSE 86; RESP 17; O2SAT 97
== END 2023-06-24 01:39 | disposition home or self-care (01) ==
PROVIDERS: Emergency Provider Emergency Medicine; Family Provider Internal Medicine; PCP Internal Medicine
DX: R51.9 Headache, unspecified (principal); M54.6 Pain in thoracic spine
CPT/HCPCS: 70450; 96372; 99283; J1885

== ENCOUNTER → 2023-07-23 06:18 | Outpatient (CLI) | payer MEDICARE, OTHER, SELFPAY ==
[2022-12-25 10:51] VITALS: BMI 28.0
[2023-07-23 08:20] LABS: Hemoglobin A1C% w Est Avg Glu 6.7 % (4.0-6.0)
[2023-07-23 08:40] LABS: BUN Creatinine Ratio 28.3 (6-22); Blood Urea Nitrogen 26 mg/dL (9-20); Carbon Dioxide 29 mmol/L (22-32); Chloride 98 mmol/L (98-107); Estimated Glomerular Filt Rate > 60 mL/min (>60); Glucose 146 mg/dL (80-110); HEMOLYSIS < 15 (0-50); Potassium 3.7 mmol/L (3.4-5.1); Sodium 134 mmol/L (137-145)
== END ==
LOC: LAB 06:21
PROVIDERS: Family Provider Internal Medicine; PCP Internal Medicine; Referring Provider Internal Medicine; Visit Provider Internal Medicine
DX: E11.59 Type 2 diabetes mellitus with other circulatory complications (principal)
CPT/HCPCS: 36415; 80048; 83036

== ENCOUNTER 2023-07-30 06:47 | Day surgery (SDC) | payer MEDICARE, OTHER, SELFPAY ==
[2022-12-25 10:51] VITALS: BMI 28.0
--- NOTE | 2023-07-30 | PATH_ITS ---
[facility] Accession Number: [id number] No. of containers..03 Tissue . 01 Material submitted: . PART A: colon - TRANSVERSE PART B: colon - RECTOSIGMOID PART C: rectum - RECTUM . 01 Diagnosis: A. Transverse Colon Polyp: Tubular adenoma. . B. Rectosigmoid Colon Polyp: Colonic mucosa with focal mucosal hyperplasia. Negative for dysplasia or malignancy. . C. Rectal Polyp: Traditional serrated adenoma. MRV 08/02/2023 1602 Local . 01 Electronically signed: . Jeffery Astorga MD, PhD, Pathologist NPI- [id number] . 01 Gross description: . Part A: TRANSVERSE: Received in formalin is 1 fragment(s) of bills, soft tissue measuring 0.4 x 0.4 x 0.2 cm submitted entirely in 1 cassette(s) Part B: RECTOSIGMOID: Received in formalin is 1 fragment(s) of bills, soft tissue measuring 0.2 x 0.2 x 0.2 cm submitted entirely in 1 cassette(s) Part C: RECTUM: Received in formalin is 1 fragment(s) of bills, soft tissue measuring 0.7 x 0.6 x 0.6 cm submitted entirely in 1 cassette(s) /JAMES 08/01/2023 1934 Local . 01 Pathologist provided ICD-10: D12.3, D12.8 . 01 CPT . 727253, 832498, [id number] Specimen Comment: A courtesy copy of this report has been sent to [phone] Performed at: 01 [facility] [address] [place] [address] [address], [place], [place] [id number] MD Wood Fritz MD Phone: [phone]
[2023-07-30 07:18] VITALS: BP 165/86; PULSE 94; RESP 16; TEMP 36.2; O2SAT 98; BMI 26.6
[2023-07-30] MEDS: LACTATED RINGERS 1,000 ML 42 ML IV ×2 (07:34→07:41)
--- NOTE | 2023-07-30 07:59 | P.HP_ITS ---
History of Present Illness History of Present Illness Date Patient Seen: 07/30/23 Time Patient Seen: 07:59 Chief complaint: Dx Colonoscopy w/poss bx Narrative: I reviewed my recent office note from 2022. No significant changes. He tried fiber but this was mostly unsuccessful. He has not titrated the dose of fiber. There is a history of colon polyps and is here for surveillance mostly. [facility] Medical History Left carpal tunnel syndrome Meningioma Amblyopia Homonymous hemianopsia following cerebrovascular accident Cerebrovascular disease History of colonic polyps Allergic rhinitis Insomnia secondary to chronic pain Iron deficiency anemia BPH w urinary obs/LUTS GERD without esophagitis Mixed hyperlipidemia Essential hypertension Coronary artery disease Type 2 diabetes mellitus with cardiac complication Osteoarthritis (~2008) Migraines (~1979) Osteopenia (~1999) Disease of spine (~1990) Chronic back pain (~2004) Cervical spine disease (~1990) Mumps Measles Chicken pox Cataracts, bilateral (~2017) Low testosterone (~2010) Asthma GERD (gastroesophageal reflux disease) (~1999) Hyperlipidemia (~1996) HTN (hypertension) (~1996) Anemia (~2004) Surgical History Anesthesia H/O heart artery stent Family History Father Cancer Hypertension Stroke Mother Cancer Hypertension Vascular dementia Grandfather History of heart disease Grandfather Cancer 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 details: (Reyna), 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, 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 Smoking Status: Never smoker alcohol intake: current Meds Home Medications and Allergies Home Medications Medication Instructions Recorded Confirmed Type aspirin 81 mg tablet,delayed 81 mg PO DAILY 12/14/17 07/30/23 History release multivitamin 1 tab PO DAILY 04/19/22 07/30/23 History nortriptyline 10 mg capsule 20 mg PO BEDTIME 12/25/22 07/30/23 History cholecalciferol (vitamin D3) 50 50 mcg PO DAILY 01/03/23 07/30/23 History mcg (2,000 unit) capsule magnesium glycinate 100 mg tablet 100 mg PO DAILY 01/03/23 07/30/23 History (Mag Glycinate) rimegepant 75 mg disintegrating 75 mg PO ONCE PRN Sleep 01/03/23 07/30/23 History tablet (Nurtec ODT) wheat dextrin [Benefiber Sugar 17.07 g PO DAILY 02/22/23 07/26/23 History Free (dextrin)] temazepam 15 mg capsule 15 mg PO PRN PRN Sleep #30 caps 04/26/23 07/30/23 Rx blood sugar diagnostic (Contour #100 ea 07/05/23 07/26/23 Rx Next Test Strips) atorvastatin 80 mg tablet 80 mg PO BEDTIME #90 tabs 07/26/23 07/30/23 Rx empagliflozin 25 mg tablet 25 mg PO DAILY #90 tabs 07/26/23 07/30/23 Rx (Jardiance) felodipine 5 mg tablet,extended 5 mg PO BID #180 tabs 07/26/23 07/30/23 Rx release 24 hr finasteride 5 mg tablet 5 mg PO DAILY #90 tabs 07/26/23 07/30/23 Rx hydrochlorothiazide 25 mg tablet 25 mg PO DAILY #90 tabs 07/26/23 07/30/23 Rx losartan 100 mg tablet 100 mg PO DAILY #90 tabs 07/26/23 07/30/23 Rx metformin 500 mg tablet 500 mg PO BID #180 tabs 07/26/23 07/30/23 Rx metoprolol succinate 50 mg 50 mg PO DAILY #90 tabs 07/26/23 07/30/23 Rx tablet,extended release 24 hr potassium chloride 10 mEq 10 meq PO BID #180 tabs 07/26/23 07/30/23 Rx tablet,extended release Allergies Allergy/AdvReac Type Severity Reaction Status Date / Time lisinopril Allergy Severe angioedema Verified 07/30/23 07:09 iron dextran complex Allergy Mild dextran Verified 07/30/23 07:09 reaction Review of Systems Review of Systems ROS: Yes All systems reviewed with the patient and are negative except as otherwise documented Exam Vital Signs (past 8 hours): - 07/30/23 07:18 Temperature 97.2 F L Pulse Rate 94 H Respiratory Rate 16 Blood Pressure 165/86 H Pulse Oximetry 98 Oxygen Delivery Method Room Air Oxygen Delivery Method Room Air Const General: cooperative HENMT Head: normal to inspection Eyes General: appearance normal, both eyes and all related structures Neck Neck: normal visual inspection Chest Chest: normal inspection of the chest Resp Effort & Inspection: normal respiratory effort Cardio Rate: regular rate GI Inspection: normal to inspection Skin General: no rashes or lesions noted Neuro General: patient alert and patient awake Extrem General: normal to inspection and no pedal edema Psych Appearance: grossly normal Assessment & Plan Assessment & Plan narrative: 73-year-old with a personal history of colon polyps and incomplete colon evacuations. Colonoscopy is pursued today.
--- NOTE | 2023-07-30 08:01 | PM.PREOP ---
Pre-operative Note Interval Note History & Physical reviewed/Exam performed by Physician: Yes Changes to H&P: No ASA Class (for procedural sedation): III
--- NOTE | 2023-07-30 08:24 | P.OP.COLON_ITS ---
Operative Date/Time/Diagnoses Date of procedure: 07/30/23 Time of procedure: 08:24 Pre-op diagnosis: Personal history of colon polyps. Incomplete evacuations Post-op diagnosis: same Procedure & Clinicians Study performed: Colonoscopy with hot snare and cold snare polypectomy Same procedure as scheduled: Yes Indications: Personal history of colon polyps and incomplete colon evacuations Surgeon: Bjorn Nolasco Procedure Notes SCOAP/Timeout: Done Procedure in detail: After the risks and benefits were explained, written and verbal informed consent was obtained. The patient was brought into the procedure room and placed into the left lateral decubitus position. Please see anesthesia notes for sedation details. Digital rectal examination was accomplished. The scope was introduced into the patient and advanced under direct visualization to the cecum as identified by the appendiceal orifice and ileocecal valve. The scope was slowly withdrawn to carefully examine the mucosa for any defects or lesions. Compre hensive imaging was accomplished throughout the rectum including the dentate line. The colon was decompressed, the scope was then removed from the patient who tolerated the procedure well. Scope withdrawal time: 12 minutes Sedation minutes: 17 Complications: none Impression: Grade 2-3 internal external nonbleeding nonthrombosed hemorrhoids. Redundant colon. There was a polyp in the distal transverse perhaps 5 mm removed with cold snare. There was a 4 mm polyp in the rectosigmoid region removed with cold snare. There was an 8 mm sessile polyp in the rectum removed with hot snare. Endoscopic diagnosis 1. Grade 2-3 hemorrhoids 2. Multiple colon polyps Post-procedure Plan for aftercare: 1. Await histopathology 2. Repeat colonoscopy will likely be suggested for 3 years. 3. Titrate fiber to the desired stool consistency and frequency. Disposition: PACU
[2023-07-30 08:25] VITALS: BP 121/63; PULSE 73; RESP 16; TEMP 36.3; O2SAT 95
[2023-07-30 08:30] VITALS: BP 128/68; PULSE 71; RESP 17; O2SAT 96
[2023-07-30 08:35] VITALS: BP 143/69; PULSE 82; RESP 17; O2SAT 98
[2023-07-30 08:40] VITALS: BP 148/79; PULSE 81; RESP 20; O2SAT 99
[2023-07-30 08:43] VITALS: BP 152/78; PULSE 90; RESP 16; O2SAT 99
== END 2023-07-30 08:59 | disposition home or self-care (01) ==
PROVIDERS: Family Provider Internal Medicine; PCP Internal Medicine; Referring Provider Internal Medicine Gastroenterology; Visit Provider Internal Medicine Gastroenterology
PROC: 0DJD8ZZ Inspection of Lower Intestinal Tract, Via Natural or Artificial Opening Endoscopic (ICD-10-PCS; CPT 45378; principal; 2023-07-30 08:00)
DX: Z86.010 Personal history of colon polyps (principal); K64.1 Second degree hemorrhoids; D12.3 Benign neoplasm of transverse colon; K63.5 Polyp of colon; D12.8 Benign neoplasm of rectum
CPT/HCPCS: 45385; J2704

== ENCOUNTER → 2023-08-16 08:54 | Outpatient (CLI) | payer MEDICARE, OTHER, SELFPAY ==
[2022-12-25 10:51] VITALS: BMI 28.0
[2023-08-16 10:23] LABS: Creatine Kinase 177 U/L (55-170)
== END ==
PROVIDERS: Family Provider Internal Medicine; PCP Internal Medicine; Referring Provider Internal Medicine; Visit Provider Internal Medicine
DX: M79.10 Myalgia, unspecified site (principal)
CPT/HCPCS: 36415; 82550

== ENCOUNTER → 2023-10-18 06:35 | Outpatient (CLI) | payer MEDICARE, OTHER, SELFPAY ==
[2022-12-25 10:51] VITALS: BMI 28.0
[2023-10-18 08:10] LABS: Hematocrit 41.6 % (41-53); Hemoglobin 14.7 g/dL (13.5-17.5); Mean Corpuscular HGB Conc 35.4 % (30-36); Mean Corpuscular Hemoglobin 29.5 PG (26-34); Mean Corpuscular Volume 83.4 fL (80-100); Platelet Count 197 X10^3/uL (150-400); Red Blood Cell Count 4.99 X10^6/uL (4.5-5.9); Red Cell Distribution Width 13.4 % (11.6-14.8); White Blood Cell Count 8.3 X10^3/uL (4.5-11.0)
[2023-10-18 08:38] LABS: HEMOLYSIS < 15 (0-50); Iron 80 ug/dL (49-181)
[2023-10-18 08:41] LABS: Alanine Aminotransferase 34 IU/L (<50); Albumin 4.2 g/dL (3.5-5.0); Albumin Globulin Ratio 1.4 (1.0-2.8); Alkaline Phosphatase 97 U/L (38-126); Aspartate Aminotransferase 32 IU/L (17-59); BUN Creatinine Ratio 24.8 (6-22); Bilirubin Total 0.7 mg/dL (0.2-1.3); Blood Urea Nitrogen 26 mg/dL (9-20); Calcium 9.9 mg/dL (8.4-10.2); Carbon Dioxide 29 mmol/L (22-32); Chloride 101 mmol/L (98-107); Cholesterol 136 mg/dL (140-199); Estimated Glomerular Filt Rate > 60 mL/min (>60); Glucose 123 mg/dL (80-110); HDL Cholesterol 54 mg/dL (40-60); HEMOLYSIS < 15 (0-50); LDL Cholesterol Calculated 48 mg/dL (<100); Potassium 3.7 mmol/L (3.4-5.1); Sodium 135 mmol/L (137-145); Total Protein 7.2 g/dL (6.3-8.2); Triglycerides 168 mg/dL (35-150)
[2023-10-18 08:47] LABS: Hemoglobin A1C% w Est Avg Glu 6.7 % (4.0-6.0)
[2023-10-18 08:50] LABS: Percent Iron Saturation 20 % (20-50); Total Iron Binding Capacity 400 ug/dL (261-462); Transferrin 317 mg/dL (206-381)
[2023-10-18 09:09] LABS: Prostate Specific Antigen 2.11 ng/mL (0.10-4.00)
[2023-10-18 09:13] LABS: Ferritin 44 ng/mL (18-464)
== END ==
PROVIDERS: Family Provider Internal Medicine; PCP Internal Medicine; Referring Provider Internal Medicine; Visit Provider Internal Medicine
DX: E78.2 Mixed hyperlipidemia (principal); E11.59 Type 2 diabetes mellitus with other circulatory complications; N40.1 Benign prostatic hyperplasia with lower urinary tract symptoms; N13.8 Other obstructive and reflux uropathy
CPT/HCPCS: 36415; 80053; 80061; 82728; 83036; 83540; 83550; 84153; 85027

== ENCOUNTER → 2023-12-19 06:35 | Outpatient (CLI) | payer MEDICARE, OTHER, SELFPAY ==
[2022-12-25 10:51] VITALS: BMI 28.0
[2023-12-19 08:46] LABS: Alanine Aminotransferase 30 IU/L (<50); Albumin 4.3 g/dL (3.5-5.0); Albumin Globulin Ratio 1.7 (1.0-2.8); Alkaline Phosphatase 98 U/L (38-126); Aspartate Aminotransferase 30 IU/L (17-59); Bilirubin Total 0.5 mg/dL (0.2-1.3); Blood Urea Nitrogen 23 mg/dL (9-20); Calcium 9.4 mg/dL (8.4-10.2); Carbon Dioxide 27 mmol/L (22-32); Chloride 102 mmol/L (98-107); Estimated Glomerular Filt Rate > 60 mL/min (>60); Globulin 2.5 g/dL (1.7-4.1); Glucose 156 mg/dL (80-110); HEMOLYSIS < 15 (0-50); Magnesium 2.2 mg/dL (1.6-2.3); Potassium 3.6 mmol/L (3.4-5.1); Sodium 137 mmol/L (137-145); Total Protein 6.8 g/dL (6.3-8.2)
== END ==
LOC: LAB 06:36
PROVIDERS: Family Provider Internal Medicine; PCP Internal Medicine; Referring Provider Specialist; Visit Provider Specialist
DX: I10 Essential (primary) hypertension (principal)
CPT/HCPCS: 36415; 80053; 83735

== ENCOUNTER → 2024-01-15 06:16 | Outpatient (CLI) | payer MEDICARE, OTHER, SELFPAY ==
[2022-12-25 10:51] VITALS: BMI 28.0
[2024-01-15 08:12] LABS: Hemoglobin A1C% w Est Avg Glu 6.8 % (4.0-6.0)
[2024-01-15 08:50] LABS: Blood Urea Nitrogen 23 mg/dL (9-20); Calcium 9.9 mg/dL (8.4-10.2); Carbon Dioxide 30 mmol/L (22-32); Chloride 101 mmol/L (98-107); Estimated Glomerular Filt Rate > 60 mL/min (>60); Glucose 151 mg/dL (80-110); HEMOLYSIS < 15 (0-50); Potassium 4.3 mmol/L (3.4-5.1); Sodium 137 mmol/L (137-145)
[2024-01-15 09:53] LABS: Microalbumin Urine Random < 0.6 mg/dL (0-1.6)
[2024-01-15 10:39] LABS: Creatinine Urine Random 9.95 mg/dL
== END ==
LOC: LAB 06:18
PROVIDERS: Family Provider Internal Medicine; PCP Internal Medicine; Referring Provider Specialist; Visit Provider Specialist
DX: I10 Essential (primary) hypertension (principal); E11.59 Type 2 diabetes mellitus with other circulatory complications; E78.00 Pure hypercholesterolemia, unspecified
CPT/HCPCS: 36415; 80048; 82043; 82570; 83036

== ENCOUNTER → 2024-04-29 10:25 | Outpatient (CLI) | payer MEDICARE, OTHER, SELFPAY ==
[2022-12-25 10:51] VITALS: BMI 28.0
[2024-04-29 11:06] LABS: Hemoglobin 14.4 g/dL (13.5-17.5); Mean Corpuscular HGB Conc 35.2 % (30-36); Mean Corpuscular Hemoglobin 29.2 PG (26-34); Mean Corpuscular Volume 82.9 fL (80-100); Platelet Count 227 X10^3/uL (150-400); Red Blood Cell Count 4.94 X10^6/uL (4.5-5.9); Red Cell Distribution Width 13.3 % (11.6-14.8); White Blood Cell Count 8.3 X10^3/uL (4.5-11.0)
[2024-04-29 11:54] LABS: BUN Creatinine Ratio 21.4 (6-22); Blood Urea Nitrogen 22 mg/dL (9-20); Calcium 9.6 mg/dL (8.4-10.2); Carbon Dioxide 25 mmol/L (22-32); Chloride 99 mmol/L (98-107); Estimated Glomerular Filt Rate > 60 mL/min (>60); Glucose 161 mg/dL (80-110); HEMOLYSIS < 15 (0-50); Potassium 3.4 mmol/L (3.4-5.1); Sodium 134 mmol/L (137-145)
[2024-04-29 12:09] LABS: HEMOLYSIS 21 (0-50); Iron 85 ug/dL (49-181)
[2024-04-29 12:24] LABS: Hemoglobin A1C% w Est Avg Glu 6.8 % (4.0-6.0)
[2024-04-29 12:30] LABS: Ferritin 33 ng/mL (18-464)
[2024-04-29 12:31] LABS: Percent Iron Saturation 22 % (20-50); Total Iron Binding Capacity 393 ug/dL (261-462); Transferrin 311 mg/dL (206-381)
[2024-04-29 13:11] LABS: Vitamin B12 537 pg/mL (239-931)
== END ==
LOC: LAB 10:26
PROVIDERS: Family Provider Internal Medicine; PCP Internal Medicine; Referring Provider Internal Medicine; Visit Provider Internal Medicine
DX: E11.59 Type 2 diabetes mellitus with other circulatory complications (principal); E53.8 Deficiency of other specified B group vitamins; D50.9 Iron deficiency anemia, unspecified
CPT/HCPCS: 36415; 80048; 82607; 82728; 83036; 83540; 83550; 85027

== ENCOUNTER → 2024-07-01 07:34 | Outpatient (CLI) | payer MEDICARE, OTHER, SELFPAY ==
[2022-12-25 10:51] VITALS: BMI 28.0
[2024-07-01 09:17] LABS: Alanine Aminotransferase 31 IU/L (<50); Albumin 4.1 g/dL (3.5-5.0); Albumin Globulin Ratio 1.5 (1.0-2.8); Alkaline Phosphatase 102 U/L (38-126); Aspartate Aminotransferase 32 IU/L (17-59); BUN Creatinine Ratio 22.9 (6-22); Bilirubin Total 0.5 mg/dL (0.2-1.3); Blood Urea Nitrogen 24 mg/dL (9-20); Calcium 9.6 mg/dL (8.4-10.2); Carbon Dioxide 26 mmol/L (22-32); Chloride 101 mmol/L (98-107); Estimated Glomerular Filt Rate > 60 mL/min (>60); Globulin 2.8 g/dL (1.7-4.1); Glucose 186 mg/dL (80-110); HEMOLYSIS < 15 (0-50); Magnesium 2.1 mg/dL (1.6-2.3); Potassium 3.6 mmol/L (3.4-5.1); Sodium 136 mmol/L (137-145); Total Protein 6.9 g/dL (6.3-8.2)
[2024-07-02 18:37] LABS: Free Kappa Lt Chains, Serum 23.3 mg/L (3.3-19.4); Free Lambda Lt Chains,Serum 18.4 mg/L (5.7-26.3)
[2024-07-03 12:36] LABS: Albumin 3.4 g/dL (2.9-4.4); Alpha-1-Globulin 0.2 g/dL (0.0-0.4); Alpha-2-Globulin 0.9 g/dL (0.4-1.0); Gamma Globulin 1.2 g/dL (0.4-1.8); Globulin Total 3.5 g/dL (2.2-3.9); Immunoglobulin A, Serum 184 mg/dL (61-437); Immunoglobulin G,Serum 974 mg/dL (603-1613); Immunoglobulin M, Serum 128 mg/dL (15-143); Protein, Total 6.9 g/dL (6.0-8.5)
== END ==
PROVIDERS: Family Provider Internal Medicine; PCP Internal Medicine; Referring Provider Specialist; Visit Provider Specialist
DX: I10 Essential (primary) hypertension (principal); E78.00 Pure hypercholesterolemia, unspecified; E85.9 Amyloidosis, unspecified
CPT/HCPCS: 36415; 80053; 82784; 83735; 83883; 84155; 84165; 86334

== ENCOUNTER → 2024-07-30 09:16 | Outpatient (CLI) | payer MEDICARE, OTHER, SELFPAY ==
[2022-12-25 10:51] VITALS: BMI 28.0
[2024-07-30 10:02] LABS: Hemoglobin A1C% w Est Avg Glu 6.5 % (4.0-6.0)
[2024-07-30 10:18] LABS: BUN Creatinine Ratio 17.5 (6-22); Blood Urea Nitrogen 22 mg/dL (9-20); Calcium 9.6 mg/dL (8.4-10.2); Carbon Dioxide 27 mmol/L (22-32); Chloride 101 mmol/L (98-107); Estimated Glomerular Filt Rate 59 mL/min (>60); Glucose 124 mg/dL (80-110); HEMOLYSIS < 15 (0-50); Potassium 3.8 mmol/L (3.4-5.1); Sodium 136 mmol/L (137-145)
== END ==
LOC: LAB 09:19
PROVIDERS: Family Provider Internal Medicine; PCP Internal Medicine; Referring Provider Internal Medicine; Visit Provider Internal Medicine
DX: E11.59 Type 2 diabetes mellitus with other circulatory complications (principal)
CPT/HCPCS: 36415; 80048; 83036

== ENCOUNTER 2024-08-14 09:14 | Emergency (ER) | payer MEDICARE, OTHER, SELFPAY ==
[2022-12-25 10:51] VITALS: BMI 28.0
[2024-08-14] VITALS (12 sets, daily range): BP systolic 143–176; BP diastolic 66–83; PULSE 77–87; RESP 16–26; TEMP 36.2; O2SAT 95–100; BMI 26.6
--- NOTE | 2024-08-14 09:21 | DI.RAD.S_ITS ---
PROCEDURE: XR CHEST 1V INDICATIONS: chest pain TECHNIQUE: One view of the chest was acquired. COMPARISON: [facility], CR, XR CHEST 1V, 12/25/2022, 7:07. FINDINGS: Surgical changes and devices: None. Lungs and pleura: Lungs are clear. No pleural effusions or pneumothorax. Mediastinum: Mediastinal contours appear normal. Heart size is normal. Bones and chest wall: No suspicious bony lesions. Overlying soft tissues appear unremarkable. IMPRESSION: No acute cardiopulmonary abnormality is seen. Dictated by: Jayant Martin M.D. on 08/14/2024 at 9:52 Approved by: Jayant Martni M.D. on 08/14/2024 at 9:52
--- NOTE | 2024-08-14 09:22 | EKG_ITS ---
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
--- NOTE | 2024-08-14 09:31 | PC.NURSE ---
10-12 days of right chest pain, worse with movement, twisting, cough. Patient can pinpoint with palpation. Denies chest pain worsening with activity, denies shortness of breath, denies radiating. I want to go on record I do not think this is my heart, I think it is my muscle
[2024-08-14 09:44] LABS: Add Manual Diff / Slide Review NO; Basophils Absolute Auto 100 /uL (0-100); Basophils Percent Auto 0.7 % (0-2); Eosinophils Absolute Auto 100 /uL (0-450); Eosinophils Percent Auto 1.8 % (2-4); Hematocrit 43.4 % (41-53); Hemoglobin 14.6 g/dL (13.5-17.5); Lymphocytes Absolute Auto 1600 /uL (1100-4500); Lymphocytes Percent Auto 21.6 % (25-40); Mean Corpuscular HGB Conc 33.6 % (30-36); Mean Corpuscular Hemoglobin 28.4 PG (26-34); Mean Corpuscular Volume 84.6 fL (80-100); Monocytes Absolute Auto 500 /uL (0-900); Monocytes Percent Auto 7.6 % (3-14); Neutrophils Absolute Auto 4900 /uL (1500-7000); Neutrophils Percent Auto 68.3 % (50-75); Platelet Count 204 X10^3/uL (150-400); Red Blood Cell Count 5.13 X10^6/uL (4.5-5.9); Red Cell Distribution Width 13.5 % (11.6-14.8); White Blood Cell Count 7.2 X10^3/uL (4.5-11.0)
[2024-08-14 09:54] LABS: Prothrombin Time 10.9 SECONDS (9.4-12.5)
[2024-08-14 09:56] LABS: PTT Partial Thromboplastin Tim 36 SECONDS (25.1-36.5)
[2024-08-14 09:58] LABS: Alanine Aminotransferase 43 IU/L (<50); Albumin 4.5 g/dL (3.5-5.0); Albumin Globulin Ratio 1.4 (1.0-2.8); Alkaline Phosphatase 100 U/L (38-126); Aspartate Aminotransferase 41 IU/L (17-59); Bilirubin Total 0.4 mg/dL (0.2-1.3); Blood Urea Nitrogen 24 mg/dL (9-20); Calcium 9.4 mg/dL (8.4-10.2); Carbon Dioxide 22 mmol/L (22-32); Chloride 103 mmol/L (98-107); Creatine Kinase 223 U/L (55-170); Estimated Glomerular Filt Rate > 60 mL/min (>60); Globulin 3.3 g/dL (1.7-4.1); Glucose 220 mg/dL (80-110); HEMOLYSIS < 15 (0-50); Lipase 75 U/L (23-300); Magnesium 2.2 mg/dL (1.6-2.3); Potassium 3.4 mmol/L (3.4-5.1); Sodium 136 mmol/L (137-145); Total Protein 7.8 g/dL (6.3-8.2)
[2024-08-14 10:10] LABS: NT-proBNP (BNP-Adult 18+) 203 pg/mL (<450); Troponin I < 0.012 ng/mL (0.01-0.034)
--- NOTE | 2024-08-14 10:28 | ED.CHESTPAIN ---
HPI - Chest Pain General Chief Complaint: Chest Pain Stated Complaint: Chest Pain Time Seen by Provider: 08/14/24 10:03 Source: patient Mode of arrival: Ambulatory History of Present Illness HPI narrative: Patient is a 74-year-old male history of diabetes coronary artery disease with stent 27 years ago hypertension CVA in 2022 presenting today with right-sided chest pain. He reports that for couple of weeks he has had some chest discomfort but thought it was musculoskeletal. Hurts every time he twists or turns and sneezes. He walks 50 minutes every day he has not noticed any chest pain or shortness of breath. He says today while meditating he had some right-sided chest discomfort. It was nonradiating. It comes and goes today he went for a walk he did not notice any worsening pain with walking. He was followed by Dr. Mckeon cardiology he has not had a stress test in some time Related Data Home Medications Medication Instructions Recorded Confirmed aspirin 81 mg tablet,delayed 81 mg PO DAILY 12/14/17 08/05/24 release multivitamin 1 tab PO DAILY 04/19/22 08/05/24 nortriptyline 10 mg capsule 20 mg PO BEDTIME 12/25/22 08/05/24 cholecalciferol (vitamin D3) 50 50 mcg PO DAILY 01/03/23 08/05/24 mcg (2,000 unit) capsule magnesium glycinate 100 mg (as 100 mg PO DAILY 01/03/23 08/05/24 glycinate) tablet (Mag Glycinate) rimegepant 75 mg disintegrating 75 mg PO ONCE PRN Sleep 01/03/23 08/05/24 tablet (Nurtec ODT) Previous Rx's Medication Instructions Recorded trazodone 50 mg tablet See Rx Instructions PO BEDTIME PRN 10/25/23 insomnia #60 tabs dicyclomine 20 mg tablet 20 mg PO TID PRN abdominal pain 12/11/23 #40 tabs temazepam 15 mg capsule 15 mg PO PRN PRN Sleep #10 caps 12/18/23 hydrocodone 5 mg-acetaminophen 325 1 tab PO BID PRN pain #40 tabs 05/08/24 mg tablet blood sugar diagnostic (Contour #100 ea 06/25/24 Next Test Strips) albuterol sulfate 90 mcg/actuation 1 - 2 puff inhalation Q4H PRN 07/28/24 aerosol inhaler Shortness Of Breath #8.5 grams rosuvastatin 40 mg tablet 40 mg PO DAILY #90 tabs 07/28/24 empagliflozin 25 mg tablet 25 mg PO DAILY #90 tabs 08/05/24 (Jardiance) felodipine 5 mg tablet,extended 5 mg PO BID #180 tabs 08/05/24 release 24 hr finasteride 5 mg tablet 5 mg PO DAILY #90 tabs 08/05/24 fluticasone 250 mcg-salmeterol 50 1 inh inhalation BID #180 ea 08/05/24 mcg/dose blistr powdr for inhalation losartan 100 mg tablet 100 mg PO DAILY #90 tabs 08/05/24 metformin 500 mg tablet 500 mg PO BID #180 tabs 08/05/24 metoprolol succinate 50 mg 50 mg PO DAILY #90 tabs 08/05/24 tablet,extended release 24 hr omeprazole 20 mg capsule,delayed 20 mg PO DAILY #90 caps 08/05/24 release spironolactone 25 mg tablet 12.5 mg (1/2 x 25 mg) PO DAILY #45 08/05/24 tabs Allergies Allergy/AdvReac Type Severity Reaction Status Date / Time lisinopril Allergy Severe angioedema Verified 08/14/24 09:22 iron dextran complex Allergy Mild dextran Verified 08/14/24 09:22 reaction Patient History Medical History NSVT (nonsustained ventricular tachycardia) Slow transit constipation Chronic insomnia Irritable bowel syndrome with constipation Left carpal tunnel syndrome Meningioma Amblyopia Homonymous hemianopsia following cerebrovascular accident Cerebrovascular disease History of colonic polyps Allergic rhinitis Insomnia secondary to chronic pain Iron deficiency anemia BPH w urinary obs/LUTS GERD without esophagitis Mixed hyperlipidemia Essential hypertension Coronary artery disease Type 2 diabetes mellitus with cardiac complication Osteoarthritis (~2008) Migraines (~1979) Osteopenia (~1999) Disease of spine (~1990) Chronic back pain (~2004) Cervical spine disease (~1990) Mumps Measles Chicken pox Cataracts, bilateral (~2017) Low testosterone (~2010) Asthma GERD (gastroesophageal reflux disease) (~1999) Hyperlipidemia (~1996) HTN (hypertension) (~1996) Anemia (~2004) Surgical History Anesthesia H/O heart artery stent Family History Father Cancer Hypertension Stroke Mother Cancer Hypertension Vascular dementia Grandfather History of heart disease Grandfather Cancer 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 details: (Reyna), 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 HEENT: Head atraumatic,EOMI, pupils reactive, face symmetric, moist mucous membranes CARDIOVASCULAR: Regular rate and rhythm without murmurs, rubs or gallops. Right-sided chest pain nonreproducible no rash no vesicular lesions RESPIRATORY: Breath sounds equal bilaterally, no wheezes rales or rhonchi. ABDOMEN: Soft, nontender. Normoactive bowel sounds all 4 quadrants. No guarding or rebound. EXTREMITIES: Normal range of motion, no clubbing or edema. Neurovascularly intact NEUROLOGICAL: Alert and oriented x4.Normal gait and speech. Cranial nerves II through XII grossly intact. SKIN: Warm, dry, no laceration, no petechiae, no rashes or lesions. Scores HEART Score Heart Score history: Slightly Suspicious Heart Score EKG: Normal Heart Score Age: > or = 65 years old Heart Score risk factors: > 3 risk factors or hx of atherosclerotic disease Heart Score troponin: < or = to normal limit Heart Score Total: 4 Course Orders Ordered: ED Orders 08/14/24 09:21 XR chest 1V Stat EKG-12 Lead Stat 08/14/24 09:35 Complete Blood Count AUTO DIFF Stat Comprehensive Metabolic Panel Stat Lipase Stat Magnesium Stat NT-proBNP (BNP-Adult 18+) Stat PTT Partial Thromboplastin [place]han Stat Prothrombin Time INR Stat Troponin & CK Cardiac Panel Stat 08/14/24 11:33 Trop I [Troponin I] Stat Discontinued Medications Aspirin (Aspirin 81 Mg Chew Tab) 324 mg PO NOW ONE Stop: 08/14/24 09:22 Last Admin: 08/14/24 09:23 Dose: Not Given Documented By: [facility] Vital Signs Vital signs: Vital Signs - 8 hr 08/14/24 09:49 08/14/24 09:49 08/14/24 10:00 Pulse Rate 83 Respiratory Rate 18 Blood Pressure 164/80 H 143/68 H Pulse Oximetry 97 08/14/24 10:00 08/14/24 10:30 08/14/24 10:30 Pulse Rate 80 84 Respiratory Rate 20 21 Blood Pressure 146/66 H Pulse Oximetry 95 96 08/14/24 10:42 08/14/24 10:42 08/14/24 11:00 Pulse Rate 80 79 Respiratory Rate 18 16 Blood Pressure 176/83 H Pulse Oximetry 96 97 08/14/24 11:01 08/14/24 11:01 08/14/24 11:37 Pulse Rate 79 Respiratory Rate 18 Blood Pressure 147/70 H 146/67 H Pulse Oximetry 97 08/14/24 11:37 08/14/24 12:00 08/14/24 12:00 Pulse Rate 85 77 Respiratory Rate 16 19 Blood Pressure 153/71 H Pulse Oximetry 98 96 08/14/24 12:30 08/14/24 12:30 Pulse Rate 79 Respiratory Rate Blood Pressure 163/75 H Pulse Oximetry 98 MDM - Chest Pain Lab Data 08/14/24 09:35 08/14/24 09:35 Labs: Lab Results 08/14/24 08/14/24 Range/Units 09:35 11:33 WBC 7.2 (4.5-11.0) X10^3/uL RBC 5.13 (4.5-5.9) X10^6/uL Hgb 14.6 (13.5-17.5) g/dL Hct 43.4 (41-53) % MCV 84.6 (80-100) fL MCH 28.4 (26-34) PG MCHC 33.6 (30-36) % RDW 13.5 (11.6-14.8) % Plt Count 204 (150-400) X10^3/uL Neut % (Auto) 68.3 (50-75) % Lymph % (Auto) 21.6 L (25-40) % Granite % (Auto) 7.6 (3-14) % Eos % (Auto) 1.8 L (2-4) % Baso % (Auto) 0.7 (0-2) % Neut # (Auto) 4900 (0046-8398) /uL Lymph # (Auto) 1600 (1650-1691) /uL Granite # (Auto) 500 (0-900) /uL Eos # (Auto) 100 (0-450) /uL Baso # (Auto) 100 (0-100) /uL PT 10.9 (9.4-12.5) SECONDS INR 1.0 (0.9-1.3) APTT 36 (25.1-36.5) SECONDS Sodium 136 L (137-145) mmol/L Potassium 3.4 (3.4-5.1) mmol/L Chloride 103 (98-107) mmol/L Carbon Dioxide 22 (22-32) mmol/L BUN 24 H (9-20) mg/dL Creatinine 1.09 (0.66-1.25) mg/dL Estimated GFR > 60 (>60) mL/min BUN/Creatinine Ratio 22.0 (6-22) Glucose 220 H (80-110) mg/dL Calcium 9.4 (8.4-10.2) mg/dL Magnesium 2.2 (1.6-2.3) mg/dL Total Bilirubin 0.4 (0.2-1.3) mg/dL AST 41 (17-59) IU/L ALT 43 (<50) IU/L Alkaline Phosphatase 100 (38-126) U/L Total Creatine Kinase 223 H (55-170) U/L Troponin I < 0.012 < 0.012 (0.01-0.034) ng/mL NT-Pro-B Natriuret Pep 203 (<450) pg/mL Total Protein 7.8 (6.3-8.2) g/dL Albumin 4.5 (3.5-5.0) g/dL Globulin 3.3 (1.7-4.1) g/dL Albumin/Globulin Ratio 1.4 (1.0-2.8) Lipase 75 (23-300) U/L Imaging Data Chest x-ray: Radiologist's Impression: PROCEDURE: XR CHEST 1V INDICATIONS: chest pain TECHNIQUE: One view of the chest was acquired. COMPARISON: [facility], CR, XR CHEST 1V, 12/25/2022, 7:07. FINDINGS: Surgical changes and devices: None. Lungs and pleura: Lungs are clear. No pleural effusions or pneumothorax. Mediastinum: Mediastinal contours appear normal. Heart size is normal. Bones and chest wall: No suspicious bony lesions. Overlying soft tissues appear unremarkable. IMPRESSION: No acute cardiopulmonary abnormality is seen. Dictated by: Jayant Martin M.D. on 08/14/2024 at 9:52 ECG Data Attestation: I personally reviewed and interpreted this ECG as follows: Prior ECG tracings: available for review Interpretation: Normal sinus rhythm rate 86 FL interval 194 QRS [address] changes right bundle-branch block noted similar to previous EKGs no acute ischemia MDM Narrative Medical decision making narrative: MDM CC: Chest pain Complicating co-morbidities: CAD with stent diabetes hypertension CVA Medical records reviewed: Previous PCP visits last 08/05/2024 Differential considered: Acute coronary syndrome musculoskeletal, shingles, Pe, pneumonia Exam documented above, pertinent findings include: None reproducible right-sided chest pain comfortable reading the paper no acute distress no focal deficits Lab Test results independently reviewed as above. Pertinent findings: Troponin negative x2 CBC does not show any leukocytosis or anemia CMP no electrolyte abnormality or BATSHEVA Independently reviewed EKG as above EKG 1. Sinus rhythm right bundle-branch block noted similar to prior EKGs Imaging studies independently reviewed: Chest x-ray no acute cardiopulmonary process Consultations: [ ] Treatments: None Re-evaluations: Patient continues to be chest pain-free here in the ED Discussion: Patient 74-year-old male history of CVA presenting today with mild right-sided chest discomfort. He has been having reproducible chest pain for a couple of weeks today happened at rest no significant shortness of breath he was able to walk. Workup in the ED is overall reassuring 2- troponins heart score is moderate however his symptoms are very mild actually a very low suspicion. Recommend follow up with his primary care provider. I did discuss with patient about admission and having a stress test. At this time he would like to follow up as an outpatient. I encouraged him to call his primary care and his cardiology Discharge Plan Departure Patient Disposition: Home Clinical Impression: Atypical chest pain Instructions: DI for Atypical Chest Pain Activity Restrictions/Additional Instructions: *You have been diagnosed with atypical chest pain *What to do: At this time I do think you need to follow up with your regional transportation manager or primary care provider for a stress test *Continue to take medications as directed *Follow up with your primary care provider in 2-3 days or call [phone] *Return to ER if you should have increasing chest pain shortness of breath weakness or any new, worsening or concerning symptoms Prescriptions: No Action dicyclomine 20 mg tablet 20 mg PO TID PRN (Reason: abdominal pain) Qty: 40 3RF (DME) Contour Next Test Strips Strip See Rx Instructions .Route Qty: 100 3RF Rx Instructions: Use to test blood sugar 1x day albuterol sulfate 90 mcg/actuation HFA aerosol inhaler 1 - 2 puff Inhalation Q4H PRN (Reason: Shortness Of Breath) Qty: 8.5 5RF Rx Instructions: 1-2 puffs q4h as needed for shortness of breath rosuvastatin 40 mg tablet 40 mg PO DAILY Qty: 90 3RF temazepam 15 mg capsule 15 mg PO PRN PRN (Reason: Sleep) Qty: 10 5RF hydrocodone-acetaminophen 5-325 mg tablet 1 tab PO BID PRN (Reason: pain) Qty: 40 0RF multivitamin Tablet 1 tab PO DAILY cholecalciferol (vitamin D3) 50 mcg (2,000 unit) capsule 50 mcg PO DAILY Mag Glycinate 100 mg tablet 100 mg PO DAILY Nurtec ODT 75 mg tablet,disintegrating 75 mg PO ONCE PRN (Reason: Sleep) Rx Instructions: as a single dose trazodone 50 mg tablet See Rx Instructions PO BEDTIME PRN (Reason: insomnia) Qty: 60 5RF Rx Instructions: 1-2 tablets nightly as needed for sleep spironolactone 25 mg tablet 12.5 mg PO DAILY Qty: 45 3RF Jardiance 25 mg tablet 25 mg PO DAILY Qty: 90 3RF metformin 500 mg tablet 500 mg PO BID Qty: 180 3RF felodipine 5 mg tablet extended release 24 hr 5 mg PO BID Qty: 180 3RF losartan 100 mg tablet 100 mg PO DAILY Qty: 90 3RF metoprolol succinate 50 mg tablet extended release 24 hr 50 mg PO DAILY Qty: 90 3RF omeprazole 20 mg capsule,delayed release(DR/EC) 20 mg PO DAILY Qty: 90 3RF finasteride 5 mg tablet 5 mg PO DAILY Qty: 90 3RF fluticasone propion-salmeterol 250-50 mcg/dose blister with device 1 inh inhalation BID Qty: 180 3RF aspirin 81 mg Tablet,Delayed Release (Dr/Ec) 81 mg PO DAILY nortriptyline 10 mg capsule 20 mg PO BEDTIME Referrals: Grant Moreno MD [Primary Care Provider] - Stand Alone Forms: Patient Portal/API/Survey
--- NOTE | 2024-08-14 10:36 | PC.NURSE ---
Gave pt printed copy of his labs and EKG
[2024-08-14 12:17] LABS: Troponin I < 0.012 ng/mL (0.01-0.034)
== END 2024-08-14 12:45 | disposition home or self-care (01) ==
PROVIDERS: Emergency Provider Emergency Medicine; Family Provider Internal Medicine; PCP Internal Medicine
DX: R07.89 Other chest pain (principal); E11.9 Type 2 diabetes mellitus without complications; Z86.79 Personal history of other diseases of the circulatory system; Z95.5 Presence of coronary angioplasty implant and graft; I10 Essential (primary) hypertension; Z86.73 Personal history of transient ischemic attack (TIA), and cerebral infarction without residual deficits; Z79.84 Long term (current) use of oral hypoglycemic drugs
CPT/HCPCS: 36415; 71045; 80053; 82550; 83690; 83735; 83880; 84484; 85025; 85610; 85730; 93005; 99284

== ENCOUNTER → 2024-09-01 06:28 | Outpatient (CLI) | payer MEDICARE, OTHER, SELFPAY ==
[2022-12-25 10:51] VITALS: BMI 28.0
[2024-09-01 08:28] LABS: Blood Urea Nitrogen 26 mg/dL (9-20); Calcium 9.7 mg/dL (8.4-10.2); Carbon Dioxide 22 mmol/L (22-32); Chloride 101 mmol/L (98-107); Estimated Glomerular Filt Rate > 60 mL/min (>60); Glucose 146 mg/dL (80-110); HEMOLYSIS < 15 (0-50); Potassium 4.4 mmol/L (3.4-5.1); Sodium 136 mmol/L (137-145)
== END ==
PROVIDERS: Family Provider Internal Medicine; PCP Internal Medicine; Referring Provider Internal Medicine; Visit Provider Internal Medicine
DX: I10 Essential (primary) hypertension (principal)
CPT/HCPCS: 36415; 80048

== ENCOUNTER → 2024-09-04 07:31 | Outpatient (CLI) | payer MEDICARE, OTHER, SELFPAY ==
[2022-12-25 10:51] VITALS: BMI 28.0
--- NOTE | 2024-09-04 07:33 | DI.NM.S_ITS ---
PROCEDURE: NM VIK PERF SPECT REST & STR Rest and exercise myocardial perfusion SPECT with gated imaging and ejection fraction RADIOPHARMACEUTICAL: 26.0 mCi Tc-99m sestamibi IV at rest and 24.9 mCi Tc-99m sestamibi IV at peak exercise. A 1-yex-tirirlml was performed. INDICATIONS: chest pain TECHNIQUE: Radiopharmaceutical was injected at peak stress test, and also at rest. SPECT images were obtained. SPECT myocardial perfusion images were displayed in short axis, horizontal long axis, and vertical long axis views. Gated images were reviewed using Ignyta software. COMPARISON: None. CARDIAC STRESS: A standard Gian treadmill exercise tolerance test was performed by the patient under the supervision of an attending staff. The patient exercised for 9 minutes and 01 seconds; 9.7 METS; functional aerobic impairment (JOB) is -43% %. Hemodynamic data: There is normal blood pressure and heart rate response to exercise stress. Patient achieved 91% of maximum predicted heart rate at peak exercise. Peak blood pressure 166/82. Symptoms: Patient denied chest pain during exercise. EKG: Rest ECG sinus rhythm, RBBB, LAFB, 88 bpm. Exercise ECG sinus tachycardia 132 bpm, no ST segment changes or arrhythmia. FINDINGS: Raw data: There is good myocardial labeling by radiotracer. No significant motion artifacts. There is evidence of diaphragmatic attenuation. No prone imaging obtained. Dsbo-vk-givac ratio is 0.26 (normal is less than 0.38 for sestamibi tracer, and less than 0.50 for thallium tracer). Left ventricle function: Gated images demonstrate normal left ventricle wall thickening. No segmental wall motion abnormality. No transient ischemic dilation; TID is 0.76 (normal less than 1.3). The left ventricle resting end-diastolic volume is 166 mL (over estimation due to diaphragmatic attenuation). Left ventricle stress ejection fraction is 49%; normal values are above 45%. Myocardial perfusion: There is a large size, moderate to severe intensity fixed inferior wall defect. No reversible perfusion defects. IMPRESSION: Probably low risk study without reversible perfusion defects. The fixed inferior wall defect occurs in the setting of diaphragmatic attenuation and no prone imaging and thus is likely due to the attenuation however prior infarct cannot be ruled out. Normal LV function. No exercise-induced ECG changes. Normal hemodynamic response. Very good exercise capacity. Dictated by: Aguead Truong D.O. on 09/05/2024 at 16:42 Approved by: Agueda Truong D.O. on 09/05/2024 at 16:48
== END ==
PROVIDERS: Family Provider Internal Medicine; PCP Internal Medicine; Referring Provider Internal Medicine; Visit Provider Internal Medicine
DX: R07.89 Other chest pain (principal)
CPT/HCPCS: 78452; 93017; A9502

== ENCOUNTER → 2024-10-21 08:07 | Outpatient (CLI) | payer MEDICARE, OTHER, SELFPAY ==
[2022-12-25 10:51] VITALS: BMI 28.0
--- NOTE | 2024-10-21 08:09 | DI.RAD.S_ITS ---
PROCEDURE: XR CERVICAL SPINE 2V OR 3V INDICATIONS: Anesthesia of skin TECHNIQUE: Three views of the cervical spine were acquired. COMPARISON: None. FINDINGS: Cervical spine curvature and alignment: Normal. Bones: There are no osseous abnormalities. Disc spaces: Moderate C3-4, severe C5-6 and moderate C6-7 and C7-T1 degenerative disc disease noted. Moderate C3-4 through C7-T1 degenerative facet disease is noted. Soft tissues: No soft tissue swelling, calcification or mass. IMPRESSION: Degeneration Dictated by: Jamey Tadeo M.D. on 10/21/2024 at 11:15 Approved by: Jamey Tadeo M.D. on 10/21/2024 at 11:16
== END ==
PROVIDERS: Family Provider Internal Medicine; PCP Internal Medicine; Referring Provider Orthopaedic Surgery; Visit Provider Orthopaedic Surgery
DX: M47.812 Spondylosis without myelopathy or radiculopathy, cervical region (principal); M50.31 Other cervical disc degeneration, high cervical region; R20.0 Anesthesia of skin
CPT/HCPCS: 72040

== ENCOUNTER → 2024-10-28 10:35 | Outpatient (CLI) | payer MEDICARE, OTHER, SELFPAY ==
[2022-12-25 10:51] VITALS: BMI 28.0
[2024-10-28 11:09] LABS: Hematocrit 41.1 % (41-53); Hemoglobin 14.5 g/dL (13.5-17.5); Mean Corpuscular HGB Conc 35.2 % (30-36); Mean Corpuscular Hemoglobin 29.2 PG (26-34); Mean Corpuscular Volume 82.9 fL (80-100); Platelet Count 197 X10^3/uL (150-400); Red Blood Cell Count 4.96 X10^6/uL (4.5-5.9); Red Cell Distribution Width 13.4 % (11.6-14.8); White Blood Cell Count 7.9 X10^3/uL (4.5-11.0)
[2024-10-28 11:23] LABS: HEMOLYSIS < 15 (0-50); Iron 93 ug/dL (49-181)
[2024-10-28 11:27] LABS: Alanine Aminotransferase 35 IU/L (<50); Albumin 4.4 g/dL (3.5-5.0); Albumin Globulin Ratio 1.6 (1.0-2.8); Alkaline Phosphatase 98 U/L (38-126); Aspartate Aminotransferase 35 IU/L (17-59); BUN Creatinine Ratio 30.4 (6-22); Bilirubin Total 0.5 mg/dL (0.2-1.3); Blood Urea Nitrogen 34 mg/dL (9-20); Calcium 9.7 mg/dL (8.4-10.2); Carbon Dioxide 24 mmol/L (22-32); Chloride 103 mmol/L (98-107); Estimated Glomerular Filt Rate > 60 mL/min (>60); Globulin 2.7 g/dL (1.7-4.1); Glucose 141 mg/dL (80-110); HEMOLYSIS < 15 (0-50); Potassium 4.3 mmol/L (3.4-5.1); Sodium 135 mmol/L (137-145); Total Protein 7.1 g/dL (6.3-8.2)
[2024-10-28 11:31] LABS: Hemoglobin A1C% w Est Avg Glu 6.4 % (4.0-6.0)
[2024-10-28 11:33] LABS: Percent Iron Saturation 22 % (20-50); Total Iron Binding Capacity 419 ug/dL (261-462); Transferrin 346 mg/dL (206-381)
[2024-10-28 11:58] LABS: Prostate Specific Antigen 1.71 ng/mL (0.10-4.00)
[2024-10-28 12:02] LABS: Ferritin 27 ng/mL (18-464)
== END ==
PROVIDERS: Family Provider Internal Medicine; PCP Internal Medicine; Referring Provider Internal Medicine; Visit Provider Internal Medicine
DX: E11.59 Type 2 diabetes mellitus with other circulatory complications (principal); N40.1 Benign prostatic hyperplasia with lower urinary tract symptoms; N13.8 Other obstructive and reflux uropathy; D50.9 Iron deficiency anemia, unspecified
CPT/HCPCS: 36415; 80053; 82728; 83036; 83540; 83550; 84153; 85027

== ENCOUNTER → 2024-12-23 06:07 | Outpatient (CLI) | payer MEDICARE, OTHER, SELFPAY ==
[2022-12-25 10:51] VITALS: BMI 28.0
[2024-12-23 08:15] LABS: Alanine Aminotransferase 27 IU/L (<50); Albumin 4.4 g/dL (3.5-5.0); Albumin Globulin Ratio 1.8 (1.0-2.8); Alkaline Phosphatase 114 U/L (38-126); Aspartate Aminotransferase 27 IU/L (17-59); BUN Creatinine Ratio 22.6 (6-22); Bilirubin Total 0.7 mg/dL (0.2-1.3); Blood Urea Nitrogen 24 mg/dL (9-20); Calcium 9.7 mg/dL (8.4-10.2); Carbon Dioxide 24 mmol/L (22-32); Chloride 101 mmol/L (98-107); Estimated Glomerular Filt Rate > 60 mL/min (>60); Globulin 2.5 g/dL (1.7-4.1); Glucose 119 mg/dL (70-99); HEMOLYSIS < 15 (0-50); Magnesium 2.1 mg/dL (1.6-2.3); Potassium 4.5 mmol/L (3.4-5.1); Sodium 135 mmol/L (137-145); Total Protein 6.9 g/dL (6.3-8.2)
== END ==
LOC: LAB 06:10
PROVIDERS: Family Provider Internal Medicine; PCP Internal Medicine; Referring Provider Specialist; Visit Provider Specialist
DX: E78.00 Pure hypercholesterolemia, unspecified (principal); I10 Essential (primary) hypertension
CPT/HCPCS: 36415; 80053; 83735

== ENCOUNTER → 2025-01-06 10:11 | Outpatient (CLI) | payer MEDICARE, OTHER, SELFPAY ==
[2022-12-25 10:51] VITALS: BMI 28.0
--- NOTE | 2025-01-06 10:14 | DI.CT.S_ITS ---
PROCEDURE: CT ABDOMEN PELVIS W CON INDICATIONS: abdominal pain, not improved with abx TECHNIQUE: After the administration of intravenous contrast, axial sections acquired from the lung bases to the pubic symphysis. Coronal and sagittal reformats were performed. For radiation dose reduction, the following was used: automated exposure control, adjustment of mA and/or kV according to patient size. COMPARISON: None. FINDINGS: Image quality: Diagnostic. Lower Chest: No significant findings. ABDOMEN: Liver: No solid mass. Gallbladder: No radiopaque gallstones or wall thickening. Biliary ducts: No biliary dilation. Pancreas: No ductal dilation. Spleen: Size is within normal limits. Adrenal Glands: No adrenal nodules. Kidneys and Ureters: No hydronephrosis. No solid mass. No complex renal cystic lesion which requires follow up. Stomach and Bowel: Normal colonic caliber, without significant wall thickening. Peritoneum: No abnormal intraperitoneal fluid. No free air. Ventral Wall: No significant ventral hernia. Abdominal Nodes: No retroperitoneal or mesenteric adenopathy by size criteria. Vessels: Aorta and inferior vena cava are normal in size. PELVIS: Pelvic Organs: Unremarkable. Bladder: No bladder wall thickening, accounting for underdistention. Pelvic Nodes: No enlarged lymph nodes. Miscellaneous: No inguinal hernias are seen. Bones: No aggressive osseous abnormality. IMPRESSION: No acute intra-abdominal abnormality seen. Dictated by: Andrea Bobby M.D. on 01/06/2025 at 18:06 Approved by: Andrea Bobby M.D. on 01/06/2025 at 18:15
== END ==
LOC: CT 10:13
PROVIDERS: Family Provider Internal Medicine; PCP Internal Medicine; Referring Provider Internal Medicine; Visit Provider Internal Medicine
DX: R10.9 Unspecified abdominal pain (principal)
CPT/HCPCS: 74177; Q9967

== ENCOUNTER → 2025-01-28 06:08 | Outpatient (CLI) | payer MEDICARE, OTHER, SELFPAY ==
[2022-12-25 10:51] VITALS: BMI 28.0
[2025-01-28 08:31] LABS: Blood Urea Nitrogen 25 mg/dL (9-20); Calcium 9.7 mg/dL (8.4-10.2); Carbon Dioxide 24 mmol/L (22-32); Chloride 101 mmol/L (98-107); Estimated Glomerular Filt Rate > 60 mL/min (>60); Glucose 150 mg/dL (70-99); HEMOLYSIS < 15 (0-50); Hemoglobin A1C% w Est Avg Glu 6.3 % (4.0-6.0); Potassium 4.7 mmol/L (3.4-5.1); Sodium 134 mmol/L (137-145)
== END ==
PROVIDERS: Family Provider Internal Medicine; PCP Internal Medicine; Referring Provider Internal Medicine; Visit Provider Internal Medicine
DX: E11.59 Type 2 diabetes mellitus with other circulatory complications (principal); I10 Essential (primary) hypertension
CPT/HCPCS: 36415; 80048; 82043; 82570; 83036; 84450

== ENCOUNTER 2025-02-06 18:47 | Emergency (ER) | payer MEDICARE, OTHER, SELFPAY ==
[2022-12-25 10:51] VITALS: BMI 28.0
[2025-02-06 18:50] VITALS: BP 131/62; PULSE 89; RESP 20; TEMP 37; O2SAT 98; BMI 26.4
--- NOTE | 2025-02-06 19:01 | DI.RAD.S_ITS ---
PROCEDURE: XR CHEST 1V INDICATIONS: Possible stroke TECHNIQUE: One view of the chest was acquired. COMPARISON: [facility], , XR CHEST 1V, 08/14/2024, 9:20. FINDINGS: Surgical changes and devices: None. Lungs and pleura: Lungs are clear. No pleural effusions or pneumothorax. Mediastinum: Mediastinal contours appear normal. Heart size is normal. Bones and chest wall: No suspicious bony lesions. Overlying soft tissues appear unremarkable. IMPRESSION: No acute pulmonary process. Dictated by: Cher Rasmussen M.D. on 02/06/2025 at 19:25 Approved by: Cher Rasmussen M.D. on 02/06/2025 at 19:25
--- NOTE | 2025-02-06 19:01 | DI.CT.S_ITS ---
PROCEDURE: CT HEAD/BRAIN WO CON INDICATIONS: Positive BE-FAST, Stroke symptoms TECHNIQUE: Noncontrast 4.5 mm thick angled axial sections acquired from the foramen magnum to the vertex, with coronal and sagittal reformats. For radiation dose reduction, the following was used: automated exposure control, adjustment of mA and/or kV according to patient size. COMPARISON: None. FINDINGS: Image quality: Diagnostic. CSF spaces: Basal cisterns are patent. No extra-axial fluid collections. The ventricles are symmetric in size and shape. Brain: No intracranial bleeds or mass effect. There is cerebral volume loss, with resultant ventricular and sulcal prominence. There are periventricular and deep white matter chronic small vessel ischemic changes. There is intracranial internal carotid artery atherosclerosis. Skull and face: Calvarium and visualized facial bones appear intact, without suspicious lesions. Sinuses: Visualized sinuses demonstrates mucous retention cyst versus polyp in the sphenoid sinus. Minimal maxillary sinus mucosal thickening. IMPRESSION: 1. No acute intracranial process. 2. Moderate atrophy and chronic microvascular ischemic changes. The above findings were discussed with Dr. Felipe Givens on 02/06/2025 at 7:28 p.m. Dictated by: Cher Rasmussen M.D. on 02/06/2025 at 19:28 Approved by: Cher Rasmussen M.D. on 02/06/2025 at 19:30
--- NOTE | 2025-02-06 19:01 | DI.CT.S_ITS ---
PROCEDURE: CT ANGIO HEAD AND NECK INDICATIONS: r/o stroke TECHNIQUE: After the administration of intravenous contrast, 1 mm thick sections acquired from the aortic arch through the [place]. 3-dimensional oyamram-niilyetss-nejfdatapq (MIP) and/or volume rendering reformats were acquired of the central intracranial vasculature and neck separately. For radiation dose reduction, the following was used: automated exposure control, adjustment of mA and/or kV according to patient size. COMPARISON: [facility], CT, CT HEAD/BRAIN WO CON, 02/06/2025, 19:14. [facility], CT, CT HEAD/BRAIN WO CON, 06/24/2023, 0:41. CT, CT HEAD/BRAIN WO CON, 12/25/2022, 7:29. [facility], CT, CT ANGIO HEAD AND NECK, 12/25/2022, 7:29. FINDINGS: Image quality: Diagnostic. Cerebral CT Angiogram: Internal carotid arteries: No acute findings. Intracranial ICA are patent with no significant stenosis. No occlusion. No aneurysm. Anterior cerebral arteries: Unremarkable. No significant stenosis. No occlusion. No aneurysm. Middle cerebral arteries: Unremarkable. No significant stenosis. No occlusion. No aneurysm. Posterior cerebral arteries: Unremarkable. No significant stenosis. No occlusion. No aneurysm. Basilar artery: Unremarkable. No significant stenosis. No occlusion. No aneurysm. Vertebral arteries: Unremarkable as visualized. Vertebral arteries are codominant. Dural venous sinuses: Unremarkable given phase of enhancement. Other: Arterial phase appearance of the brain parenchyma is unremarkable. Neck CT Angiogram: Internal carotid arteries: Unremarkable. No significant stenosis. No dissection or occlusion. Common carotid arteries: Mild irregularity in calcification at the origin the left common carotid artery. There is approximately 30-50% stenosis. External carotid arteries: Unremarkable. No occlusion. Vertebral arteries: Approximate 50% narrowing at the origin of the left vertebral artery. Aortic Arch and Mediastinum: Partially visualized aortic arch unremarkable without evidence of aneurysm. Origins of the great vessels unremarkable. Other: Arterial phase soft tissues of the neck and chest are unremarkable. IMPRESSION: Calcification of the proximally 30 50% stenosis at the origin of the left common carotid artery. Approximate 50% stenosis at the origin of left vertebral artery. Any quantitative measurements of stenosis were performed using NASCET criteria. Dictated by: Cher Rasmussen M.D. on 02/06/2025 at 19:45 Approved by: Cher Rasmussen M.D. on 02/06/2025 at 19:49
--- NOTE | 2025-02-06 19:19 | ED_ITS ---
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 Also has history of recurrent headaches, followed by Neurology Dr. Nicole at [facility] who was recently left that practice, awaiting to see his new urologist who took over the practice, has regimen of Nurtec oral medication with aspirin at onset of aura symptoms, perhaps 4-5 attacks per year. Last known well 5:00 p.m. today, when he felt aura symptoms, took his Nurtec and aspirin, felt better 20 minutes later, felt like he wanted to go to take a nap, put some eyedrops gel lubricant in his eyes, about 6:15 p.m. woke up and had blurred vision. He was unsure if it was related to the eye gel that he had just put in. No headache symptoms. No focal numbness to face arm or leg. No focal weakness to face arm or leg. Symptoms seemed to be improving before arrival here to the emergency department. Continued resolution of symptoms, no recurrence of symptoms. On Anticoagulants: No (ASA) Related Data Home Medications ?Medication ?Instructions ?Recorded ?Confirmed aspirin 81 mg tablet,delayed 81 mg PO DAILY 12/14/17 0 02/03/25 release multivitamin 1 tab PO DAILY 04/19/2201/14 cholecalciferol (vitamin D3) 50 50 mcg PO DAILY 02/03/25 mcg (2,000 unit) capsule magnesium glycinate 100 mg (as 100 mg PO DAILY 3 02/03/25 glycinate) tablet (Mag Glycinate) rimegepant 75 mg disintegrating 75 mg PO ONCE PRN Slee p 01/03/23 02/03/25 tablet (Nurtec ODT) Previous Rx's ?Medication ?Instructions ?Recorded blood sugar diagnostic (Contour #100 ea 06/25/24 Next Test Strips) albuterol sulfate 90 mcg/actuation 1 - 2 puff inhalati on Q4H PRN 07/28/24 aerosol inhaler Shortness Of Breath #8.5 gra ms rosuvastatin 40 mg tablet 40 mg PO DAILY #90 tabs 07/16 10/07 empagliflozin 25 mg tablet 25 mg PO DAILY #90 tabs (Jardiance) felodipine 5 mg tablet,extended 5 mg PO BID #180 tabs 08/05/24 release 24 hr finasteride 5 mg tablet 5 mg PO DAILY #90 tabs 08/05 fluticasone 250 mcg-salmeterol 50 1 inh inhalation BID #180 ea 08/05/24 mcg/dose blistr powdr for inhalation losartan 100 mg tablet 100 mg PO DAILY #90 tabs metformin 500 mg tablet 500 mg PO BID #180 tabs 07/17 08/09 metoprolol succinate 50 mg 50 mg PO DAILY #90 tabs tablet,extended release 24 hr omeprazole 20 mg capsule,delayed 20 mg PO DAILY #90 ca ps 08/05/24 release spironolactone 25 mg tablet 12.5 mg (1/2 x 25 mg) PO D AILY #45 08/05/24 tabs nitroglycerin 0.4 mg sublingual 0.4 mg sublingual Q5M PRN chest 09/10/24 tablet pain #25 tabs hydrocodone 5 mg-acetaminophen 325 1 tab PO BID PRN pa in #40 tabs 11/03/24 mg tablet temazepam 15 mg capsule 15 mg PO PRN PRN Sleep #10 c aps 11/03/24 nortriptyline 10 mg capsule 20 mg (2 x 10 mg) PO BEDTI ME #90 11/21/24 caps dicyclomine 20 mg tablet 20 mg PO TID PRN abdominal p ain 12/23/24 #180 tabs Allergies Allergy/AdvReac Type Severity Reaction Status Date / Time lisinopril Allergy Severe angioedema Verified 02/06/25 18:51 iron dextran complex Allergy Mild dextran Verified 02/06/25 18:51 reaction mirtazapine AdvReac Intermediate Drowsy Verified 02/06/25 18:51 Review of Systems Hematologic/Lymphatic On Anticoagulants: No (ASA) Patient History Medical History Allergic rhinitis Amblyopia Anemia (~2004) Asthma BPH w urinary obs/LUTS Cataracts, bilateral (~2017) Cerebrovascular disease Cervical spine disease (~1990) Chicken pox Chronic back pain (~2004) Chronic insomnia Coronary artery disease Disease of spine (~1990) Essential hypertension Generalized anxiety disorder GERD (gastroesophageal reflux disease) (~1999) GERD without esophagitis History of colonic polyps Homonymous hemianopsia following cerebrovascular accident HTN (hypertension) (~1996) Hyperlipidemia (~1996) Insomnia secondary to chronic pain Iron deficiency anemia Irritable bowel syndrome with constipation Left carpal tunnel syndrome Low testosterone (~2010) Measles Meningioma Migraines (~1979) Mixed hyperlipidemia Mumps NSVT (nonsustained ventricular tachycardia) Osteoarthritis (~2008) Osteopenia (~1999) Slow transit constipation Type 2 diabetes mellitus with cardiac complication Surgical History Anesthesia H/O heart artery stent Family History Father Cancer Hypertension Stroke Mother Cancer Hypertension Vascular dementia Grandfather History of heart disease Grandfather Cancer 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 details: (Reyna), 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 HEAD: Atraumatic. Normocephalic. EYES: Pupils equal round and reactive. Extraocular motions intact. No scleral icterus. No injection or drainage. ENT: Nose without bleeding, purulent drainage. Throat without erythema, tonsillar hypertrophy or exudate. Airway patent. NECK: Trachea midline. Non tender CARDIOVASCULAR: Regular rate and rhythm without murmurs, gallops, or rubs. RESPIRATORY: Clear to auscultation. Breath sounds equal bilaterally. No wheezes, rales, or rhonchi. GASTROINTESTINAL: Abdomen soft, non-tender, nondistended. EXTREMITIES: No edema or joint tenderness. BACK: Nontender without deformity or crepitance. No flank tenderness. NEURO: AOx3. Clear speech. Left esotropia with front gaze noted, apparently congenital. No diplopia on vertical and horizontal gaze testing. Slight right lateral extreme visual acuity loss, that he voluntarily explain, not easy to demonstrate. Seems at his baseline. Motor 5/5 bilateral upper extremities and lower extremities. Soevwo-go-siip testing and rkis-ql-ikyh testing normal. Sensation intact to light touch face arm or legs bilaterally. Normal gait. SKIN: No rash or erythema of visible areas Initial Vital Signs Initial Vital Signs: Vital Signs Temperature 98.6 F 02/06/25 18:50 Pulse Rate 89 02/06/25 18:50 Respiratory Rate 20 02/06/25 18:50 Blood Pressure 131/62 02/06/25 18:50 Pulse Oximetry 98 02/06/25 18:50 Oxygen Delivery Method Room Air 02/06/25 18:50 Course Orders Ordered: ED Orders 02/06/25 19:01 CT angio head and neck Stat CT head/brain wo con Stat XR chest 1V Stat EKG-12 Lead Stat 02/06/25 19:13 Complete Blood Count AUTO DIFF Stat Comprehensive Metabolic Panel Stat PTT Partial Thromboplastin [place] Stat Prothrombin Time INR Stat Troponin & CK Cardiac Panel Stat Discontinued Medications Ondansetron HCl (Ondansetron 4 Mg/2 Ml Inj) 4 mg IV NOW PRN PRN Reason: Nausea And Vomiting Ondansetron HCl (Ondansetron 4 Mg Odt) 4 mg PO NOW PRN PRN Reason: Nausea And Vomiting Vital Signs Vital signs: Vital Signs - 8 hr 02/06/25 21:44 Pulse Rate 79 Respiratory Rate 20 Blood Pressure 137/89 Pulse Oximetry 98 Oxygen Delivery Method Room Air MDM - Neuro Symptoms/Deficit Lab Data Attestation: I reviewed the patient's lab results. Lab results narrative: White blood cell count 6900, hemoglobin 14.7, platelets adequate. Glucose 140. BUN 22 with creatinine 1.07. Normal serum carbon dioxide and electrolytes. Liver functions normal. Troponin negative/unmeasurable. 02/06/25 19:13 02/06/25 19:13 Labs: Lab Results 02/06/25 Range/Units 19:13 WBC 6.9 (4.5-11.0) X10^3/uL RBC 5.02 (4.5-5.9) X10^6/uL Hgb 14.7 (13.5-17.5) g/dL Hct 41.9 (41-53) % MCV 83.4 (80-100) fL MCH 29.4 (26-34) PG MCHC 35.2 (30-36) % RDW 13.1 (11.6-14.8) % Plt Count 174 (150-400) X10^3/uL Neut % (Auto) 47.9 L (50-75) % Lymph % (Auto) 33.2 (25-40) % [place] % (Auto) 13.9 (3-14) % Eos % (Auto) 4.3 H (2-4) % Baso % (Auto) 0.7 (0-2) % Neut # (Auto) 3300 (8308-5483) /uL Lymph # (Auto) 2300 (3822-8373) /uL [place] # (Auto) 1000 H (0-900) /uL Eos # (Auto) 300 (0-450) /uL Baso # (Auto) 0 (0-100) /uL PT 10.3 (9.4-12.5) SECONDS INR 0.9 (0.9-1.3) APTT 30 (25.1-36.5) SECONDS Sodium 137 (137-145) mmol/L Potassium 4.0 (3.4-5.1) mmol/L Chloride 104 (98-107) mmol/L Carbon Dioxide 23 (22-32) mmol/L BUN 22 H (9-20) mg/dL Creatinine 1.07 (0.66-1.25) mg/dL Estimated GFR > 60 (>60) mL/min BUN/Creatinine Ratio 20.6 (6-22) Glucose 140 H (70-99) mg/dL Calcium 9.7 (8.4-10.2) mg/dL Total Bilirubin 0.4 (0.2-1.3) mg/dL AST 35 (17-59) IU/L ALT 39 (<50) IU/L Alkaline Phosphatase 117 (38-126) U/L Total Creatine Kinase 191 H (55-170) U/L Troponin I < 0.012 (0.01-0.034) ng/mL Total Protein 7.9 (6.3-8.2) g/dL Albumin 4.6 (3.5-5.0) g/dL Globulin 3.3 (1.7-4.1) g/dL Albumin/Globulin Ratio 1.4 (1.0-2.8) Imaging Data Chest x-ray: Radiologist's Impression: [address] [id number] XRay Report Signed Patient: Mauri Petersen MR#: [id number] : 1950 Acct:[id number] Age/Sex: 74 / M Date of Service: 02/06/25 Loc: ED Accession Number: [id number] Procedure: XR chest 1V Ordering Provider: Juan Givens MD PROCEDURE: XR CHEST 1V INDICATIONS: Possible stroke TECHNIQUE: One view of the chest was acquired. COMPARISON: [facility], , XR CHEST 1V, 08/14/2024, 9:20. FINDINGS: Surgical changes and devices: None. Lungs and pleura: Lungs are clear. No pleural effusions or pneumothorax. Mediastinum: Mediastinal contours appear normal. Heart size is normal. Bones and chest wall: No suspicious bony lesions. Overlying soft tissues appear unremarkable. IMPRESSION: No acute pulmonary process. Dictated by: Cher Rasmussen M.D. on 02/06/2025 at 19:25 Approved by: Cher Rasmussen M.D. on 02/06/2025 at 19:25 CT scan - head: Radiologist's Impression: [address] [address] [address] Scan Report Signed Patient: Mauri Petersen MR#: [id number] : 1950 Acct:[id number] Age/Sex: 74 / M Date of Service: 02/06/25 Loc: ED Accession Number: [id number] Procedure: CT head/brain wo con Ordering Provider: Juan Givens MD PROCEDURE: CT HEAD/BRAIN WO CON INDICATIONS: Positive BE-FAST, Stroke symptoms TECHNIQUE: Noncontrast 4.5 mm thick angled axial sections acquired from the foramen magnum to the vertex, with coronal and sagittal reformats. For radiation dose reduction, the following was used: automated exposure control, adjustment of mA and/or kV according to patient size. COMPARISON: None. FINDINGS: Image quality: Diagnostic. CSF spaces: Basal cisterns are patent. No extra-axial fluid collections. The ventricles are symmetric in size and shape. Brain: No intracranial bleeds or mass effect. There is cerebral volume loss, with resultant ventricular and sulcal prominence. There are periventricular and deep white matter chronic small vessel ischemic changes. There is intracranial internal carotid artery atherosclerosis. Skull and face: Calvarium and visualized facial bones appear intact, without suspicious lesions. Sinuses: Visualized sinuses demonstrates mucous retention cyst versus polyp in the sphenoid sinus. Minimal maxillary sinus mucosal thickening. IMPRESSION: 1. No acute intracranial process. 2. Moderate atrophy and chronic microvascular ischemic changes. The above findings were discussed with Dr. Felipe Givens on 02/06/2025 at 7:28 p.m. Dictated by: Cher Rasmussen M.D. on 02/06/2025 at 19:28 Approved by: Cher Rasmussen M.D. on 02/06/2025 at 19:30 CTA - brain/neck: Radiologist's Impression: [address] [address] [address] Scan Report Signed Patient: Mauri Petersen MR#: [id number] : 1950 Acct:[id number] Age/Sex: 74 / M Date of Service: 02/06/25 Loc: ED Accession Number: [id number] Procedure: CT angio head and neck Ordering Provider: Juan Givens MD PROCEDURE: CT ANGIO HEAD AND NECK INDICATIONS: r/o stroke TECHNIQUE: After the administration of intravenous contrast, 1 mm thick sections acquired from the aortic arch through the [place]. 3-dimensional hnuhokd-xkjwgggou-vhduchswtz (MIP) and/or volume rendering reformats were acquired of the central intracranial vasculature and neck separately. For radiation dose reduction, the following was used: automated exposure control, adjustment of mA and/or kV according to patient size. COMPARISON: [facility], CT, CT HEAD/BRAIN WO CON, 02/06/2025, 19:14. [facility], CT, CT HEAD/BRAIN WO CON, 06/24/2023, 0:41. CT, CT HEAD/BRAIN WO CON, 12/25/2022, 7:29. [facility], CT, CT ANGIO HEAD AND NECK, 12/25/2022, 7:29. FINDINGS: Image quality: Diagnostic. Cerebral CT Angiogram: Internal carotid arteries: No acute findings. Intracranial ICA are patent with no significant stenosis. No occlusion. No aneurysm. Anterior cerebral arteries: Unremarkable. No significant stenosis. No occlusion. No aneurysm. Middle cerebral arteries: Unremarkable. No significant stenosis. No occlusion. No aneurysm. Posterior cerebral arteries: Unremarkable. No significant stenosis. No occlusion. No aneurysm. Basilar artery: Unremarkable. No significant stenosis. No occlusion. No aneurysm. Vertebral arteries: Unremarkable as visualized. Vertebral arteries are codominant. Dural venous sinuses: Unremarkable given phase of enhancement. Other: Arterial phase appearance of the brain parenchyma is unremarkable. Neck CT Angiogram: Internal carotid arteries: Unremarkable. No significant stenosis. No dissection or occlusion. Common carotid arteries: Mild irregularity in calcification at the origin the left common carotid artery. There is approximately 30-50% stenosis. External carotid arteries: Unremarkable. No occlusion. Vertebral arteries: Approximate 50% narrowing at the origin of the left vertebral artery. Aortic Arch and Mediastinum: Partially visualized aortic arch unremarkable without evidence of aneurysm. Origins of the great vessels unremarkable. Other: Arterial phase soft tissues of the neck and chest are unremarkable. IMPRESSION: Calcification of the proximally 30 50% stenosis at the origin of the left common carotid artery. Approximate 50% stenosis at the origin of left vertebral artery. Any quantitative measurements of stenosis were performed using NASCET criteria. Dictated by: Cher Rasmussen M.D. on 02/06/2025 at 19:45 Approved by: Cher Rasmussen M.D. on 02/06/2025 at 19:49 [facility] Narrative Medical decision making narrative: 74-year-old male with history of congenital left eye esotropia never surgically corrected, prior remote stroke with residual right sided peripheral visual defect, recurrent migraine headaches with aura, had typical aura this evening, prompting him to take his usual aspirin and Nurtec medications, 1930, CT head noncontrast. No acute changes per phone call Radiology Dr Rice. Await dictated report. CTA study pending. CTA no acute changes, some noncritical ICA narrowing noted. See radiology reports. Copies of CT and CTA reports provided for patient with review of results. Patient feels that in retrospect his blurred vision is likely due to the lubricant he gave himself after response to aspirin/Nurtec medication for his typical aura. He does not want to stay for further cardiac monitoring, does not want to stay for MRI brain imaging that would be available sometime tomorrow. He will follow up as an outpatient with his neurologist. Discharged home per patient request. Return precautions discussed. Discharge Plan Departure Patient Disposition: Home Clinical Impression: Visual disturbance Activity Restrictions/Additional Instructions: Complex neurological history with congenital left eye esotropia changes, recurrent migraine headaches, previous stroke with residual right lateral gaze disturbance, tonight with typical aura symptoms, taking your usual Nurtec and aspirin regimen, had relief of symptoms. You wanted to go to sleep and put eye gel into your eyes. Then you awoke with blurred vision. Unclear if this might have been related to the gel. Symptoms seemed to be resolved as you came into the emergency department for evaluation. Stroke alert initiated. CT head noncontrast study showed no acute changes. CT angiogram of the head and neck vessels show mild narrowing of the carotid arteries only, no actionable changes. There is no MRI brain available at this hour, could admit to the hospital or hold in the emergency department on telemetry to coordinate brain MRI, you declined this for now. It is possible your blurred vision symptoms might have been due to the gel lubricant medication. Continue for now with your regimen of Nurtec/aspirin for aura symptoms. Follow up with your neurologist as planned early this next month in [facility]. Return to this/nearest emergency department for any change worsening symptoms or any concerns prior. Prescriptions: No Action (DME) Contour Next Test Strips Strip See Rx Instructions .Route Qty: 100 3RF Rx Instructions: Use to test blood sugar 1x day albuterol sulfate 90 mcg/actuation HFA aerosol inhaler 1 - 2 puff Inhalation Q4H PRN (Reason: Shortness Of Breath) Qty: 8.5 5RF Rx Instructions: 1-2 puffs q4h as needed for shortness of breath rosuvastatin 40 mg tablet 40 mg PO DAILY Qty: 90 3RF nortriptyline 10 mg capsule 20 mg PO BEDTIME Qty: 90 2RF hydrocodone-acetaminophen 5-325 mg tablet 1 tab PO BID PRN (Reason: pain) Qty: 40 0RF temazepam 15 mg capsule 15 mg PO PRN PRN (Reason: Sleep) Qty: 10 5RF multivitamin Tablet 1 tab PO DAILY cholecalciferol (vitamin D3) 50 mcg (2,000 unit) capsule 50 mcg PO DAILY Mag Glycinate 100 mg tablet 100 mg PO DAILY Nurtec ODT 75 mg tablet,disintegrating 75 mg PO ONCE PRN (Reason: Sleep) Rx Instructions: as a single dose spironolactone 25 mg tablet 12.5 mg PO DAILY Qty: 45 3RF Jardiance 25 mg tablet 25 mg PO DAILY Qty: 90 3RF metformin 500 mg tablet 500 mg PO BID Qty: 180 3RF felodipine 5 mg tablet extended release 24 hr 5 mg PO BID Qty: 180 3RF losartan 100 mg tablet 100 mg PO DAILY Qty: 90 3RF metoprolol succinate 50 mg tablet extended release 24 hr 50 mg PO DAILY Qty: 90 3RF omeprazole 20 mg capsule,delayed release(DR/EC) 20 mg PO DAILY Qty: 90 3RF finasteride 5 mg tablet 5 mg PO DAILY Qty: 90 3RF fluticasone propion-salmeterol 250-50 mcg/dose blister with device 1 inh inhalation BID Qty: 180 3RF nitroglycerin 0.4 mg tablet, sublingual 0.4 mg sublingual Q5M PRN (Reason: chest pain) Qty: 25 5RF Rx Instructions: do not exceed 3 doses per episode dicyclomine 20 mg tablet 20 mg PO TID PRN (Reason: abdominal pain) Qty: 180 3RF aspirin 81 mg Tablet,Delayed Release (Dr/Ec) 81 mg PO DAILY Referrals: Grant Moreno MD [Primary Care Provider, Internal Medicine] Stand Alone Forms: Patient Portal/API
[2025-02-06 19:22] LABS: Add Manual Diff / Slide Review NO; Hematocrit 41.9 % (41-53); Hemoglobin 14.7 g/dL (13.5-17.5); Lymphocytes Absolute Auto 2300 /uL (1100-4500); Mean Corpuscular HGB Conc 35.2 % (30-36); Mean Corpuscular Hemoglobin 29.4 PG (26-34); Mean Corpuscular Volume 83.4 fL (80-100); Platelet Count 174 X10^3/uL (150-400)
[2025-02-06 19:31] LABS: INR 0.9 (0.9-1.3); Prothrombin Time 10.3 SECONDS (9.4-12.5)
[2025-02-06 19:33] LABS: PTT Partial Thromboplastin Tim 30 SECONDS (25.1-36.5)
[2025-02-06 19:35] LABS: Alanine Aminotransferase 39 IU/L (<50); Albumin 4.6 g/dL (3.5-5.0); Albumin Globulin Ratio 1.4 (1.0-2.8); Alkaline Phosphatase 117 U/L (38-126); Blood Urea Nitrogen 22 mg/dL (9-20); Calcium 9.7 mg/dL (8.4-10.2); Carbon Dioxide 23 mmol/L (22-32); Chloride 104 mmol/L (98-107); Creatine Kinase 191 U/L (55-170); Estimated Glomerular Filt Rate > 60 mL/min (>60); Globulin 3.3 g/dL (1.7-4.1); Glucose 140 mg/dL (70-99); HEMOLYSIS < 15 (0-50); Potassium 4.0 mmol/L (3.4-5.1); Sodium 137 mmol/L (137-145); Total Protein 7.9 g/dL (6.3-8.2)
[2025-02-06 19:46] LABS: Troponin I < 0.012 ng/mL (0.01-0.034)
[2025-02-06 21:44] VITALS: BP 137/89; PULSE 79; RESP 20; O2SAT 98
== END 2025-02-06 21:45 | disposition home or self-care (01) ==
PROVIDERS: Emergency Provider Emergency Medicine; Family Provider Internal Medicine; PCP Internal Medicine
DX: H53.8 Other visual disturbances (principal); I69.30 Unspecified sequelae of cerebral infarction
CPT/HCPCS: 70450; 70496; 70498; 71045; 80053; 82550; 84484; 85025; 85610; 85730; 99284; Q9967

== ENCOUNTER → 2025-05-08 06:15 | Outpatient (CLI) | payer MEDICARE, OTHER, SELFPAY ==
[2022-12-25 10:51] VITALS: BMI 28.0
[2025-05-08 08:19] LABS: Hemoglobin A1C% w Est Avg Glu 6.8 % (4.0-6.0)
[2025-05-08 08:34] LABS: Alanine Aminotransferase 26 IU/L (<50); Albumin 4.4 g/dL (3.5-5.0); Albumin Globulin Ratio 1.5 (1.0-2.8); Alkaline Phosphatase 105 U/L (38-126); Blood Urea Nitrogen 25 mg/dL (9-20); Calcium 9.6 mg/dL (8.4-10.2); Carbon Dioxide 20 mmol/L (22-32); Chloride 101 mmol/L (98-107); Estimated Glomerular Filt Rate > 60 mL/min (>60); Globulin 2.9 g/dL (1.7-4.1); Glucose 136 mg/dL (70-99); HEMOLYSIS 26 (0-50); Magnesium 2.2 mg/dL (1.6-2.3); Potassium 4.5 mmol/L (3.4-5.1); Sodium 134 mmol/L (137-145); Total Protein 7.3 g/dL (6.3-8.2)
== END ==
PROVIDERS: Family Provider Internal Medicine; PCP Internal Medicine; Referring Provider Specialist; Visit Provider Specialist
DX: E11.9 Type 2 diabetes mellitus without complications (principal); E78.00 Pure hypercholesterolemia, unspecified; I10 Essential (primary) hypertension
CPT/HCPCS: 36415; 80053; 83036; 83735